=== PATIENT | female | born 1960 | race Caucasian/White ===

== ENCOUNTER 2019-09-14 17:01 | Observation (INO) | payer MEDICARE, SELFPAY ==
[2019-09-14] VITALS (10 sets, daily range): BP systolic 94–136; BP diastolic 49–89; PULSE 105–122; RESP 18–20; TEMP 36.8–37.2; O2SAT 90–99; BMI 41.2
--- NOTE | ~2019-09-14 | CT_ITS ---
EXAMINATION: CT brain wo con DATE: 09/14/2019 18:21 INDICATION: Head injury. TECHNIQUE: Computed tomography (CT) of the head was performed without intravenous contrast. The mA wa s adjusted according to patient size. Iterative reconstruction technique was employed. The dose-lengt h product was 605.33 mGy-cm. COMPARISON: None FINDINGS: There is no intracranial hemorrhage, acute infarction, or abnormal intracranial mass lesion . The ventricles are normal in size. 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 The orbits are normal . The mastoid air cells are normal. IMPRESSION: 1. Normal brain. Reviewed, dictated and finalized at location A. IMPRESSION: 1. Normal brain.
--- NOTE | ~2019-09-14 | CT_ITS ---
EXAMINATION: CT lumbar spine wo con DATE: 09/14/2019 18:21 INDICATION: Low back pain. Fall. TECHNIQUE: Computed tomography (CT) of the lumbar spine was performed without intravenous contrast. A utomated exposure control and iterative reconstruction technique were employed. The dose-length produ ct was 1436.52 mGy-cm. COMPARISON: CT abdomen and pelvis 02/12/2012 FINDINGS: There are fibroids in the uterus. There is 38 degrees levoscoliosis of thoracolumbar spine. There is 3 mm anterolisthesis of L4 on L5 and 3 mm retrolisthesis of L2 on L3. Vertebral body height s are normal. There is mildly decreased disc height at L1-L2, severely decreased disc height at L2-L3 , and mildly decreased disc height at L4-L5. The following disc levels are specifically discussed: L1-L2: The disc is bulging. There is mild bilateral facet joint osteoarthritis. There is mild bilater al neural foraminal stenosis. There is mild central canal stenosis. L2-L3: The disc is bulging. There is severe right and mild left facet joint osteoarthritis. There is moderate right and mild left neural foraminal stenosis. There is mild central canal stenosis. L3-L4: The disc is bulging. There is severe right and moderate left facet joint osteoarthritis. There is mild right and moderate left neural foraminal stenosis. There is mild central canal stenosis. L4-L5: The disc is bulging. There is severe bilateral facet joint osteoarthritis. There is moderate b ilateral neural foraminal stenosis. There is mild central canal stenosis. L5-S1: The disc is bulging. There is severe bilateral facet joint osteoarthritis. There is mild left neural foraminal stenosis. There is mild central canal stenosis. IMPRESSION: 1. No fracture. 2. Severe lumbar spondylosis. 3. Thoracolumbar levoscoliosis. Reviewed, dictated and finalized at location A.
--- NOTE | ~2019-09-14 | XR_ITS ---
EXAMINATION: XR chest 1V portable DATE: 09/14/2019 18:25 INDICATION: Weakness. Fall. TECHNIQUE: A single frontal view of the chest was obtained. COMPARISON: Chest single view 02/14/2012 FINDINGS: The chest demonstrates clear lungs without pneumonia, pleural effusion, or pneumothorax. Th e heart size is normal. There is an old healed fracture of left seventh rib. IMPRESSION: 1. No acute cardiopulmonary disease. Reviewed, dictated and finalized at location A.
--- NOTE | 2019-09-14 17:09 | ECG_ITS ---
Measurements Intervals Stuart Rate: 117 P: 45 MO: 142 QRS: 18 QRSD: 85 T: 49 QT: 330 QTc: 461 Interpretive Statements SINUS TACHYCARDIA POSSIBLE LEFT ATRIAL ENLARGEMENT ABNORMAL ECG Electronically Signed On 09-15-2019 7:16:40 CDT by Presley aPgan D.O.
--- NOTE | 2019-09-14 17:18 | ED.DIZZY ---
HPI - Dizziness General Chief Complaint: Dizziness Stated Complaint: MULTIPLE FALLS/HIT MY HEAD Time Seen by Provider: 09/14/19 17:09 Source: patient Mode of arrival: ambulatory Limitations: no limitations History of Present Illness HPI Narrative: A 59 y/o female pt presents to the ED with c/o a fall x 3 since this morning. Pt states she feels dizzy and off-balance and states that everything is wobbly , but denies the room spinning . She notes dropping a glass of water today and reports a new onset of tremors. Pt notes having chronic back pain, but reports a new onset of lower back pain and bilateral knee pain since falling. 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 Pt denies dysuria, LOC or CP. She states that her physician recently switched her pain medication for her chronic back pain. Patient states she was recently switched from oxycodone to oral morphine for her chronic back pain and feels it symptoms have been worsened since she is switch this medication also reports recent use of insulin pump MD elicited complaint: dizziness Onset (ago): hour(s) Description: off-balance and other ( everything is wobbly ) Context: change in medication (pain medication) Associated symptoms: other (lower back pain, bilateral knee pain, tremors) Related Data Home Medications Medication Instructions Recorded Confirmed dpqxobdda-biealqfz-qxb-hyalur tablet PO DAILY 09/14/19 [Move Free Ultra (boron)] cranberry 500 mg PO BID 09/14/19 fenofibrate mg 09/14/19 gabapentin 09/14/19 insulin regular hum U-500 conc 85 unit SUBCUT QPM 09/14/19 [Humulin R U-500 (Conc) Kwikpen] insulin regular hum U-500 conc 110 unit SUBCUT QAM 09/14/19 [Humulin R U-500 (Conc) Kwikpen] lutein extract-zeaxanthin ext cap PO DAILY 09/14/19 metoprolol tartrate 09/14/19 morphine 15 mg PO Q12H 09/14/19 olmesartan-hydrochlorothiazide tablet 09/14/19 tizanidine mg 09/14/19 venlafaxine mg PO 09/14/19 vitamin B complex 1 tablet PO DAILY 09/14/19 Allergies Allergy/AdvReac Type Severity Reaction Status Date / Time Penicillins Allergy Unknown Hives Verified 09/14/19 17:19 Review of Systems Review of Systems: All systems reviewed & are unremarkable except as noted in HPI and below Cardiovascular: Cardiovascular: Denies chest pain Genitourinary: Genitourinary: Denies dysuria Musculoskeletal: Musculoskeletal: Reports back pain (chronic, new onset of lower back pain) and Reports other (bilateral knee pain) Neurologic: Reports dizziness ( off-balance ), Reports frequent falls (x 3), Reports tremor(s) and Denies other (LOC) [facility] Past Medical History Medical History (Updated 09/14/19 @ 20:49 by Hermann Mcduffie DO) Arthritis Breast CA Depression Diabetes mellitus Hypertension Sleep apnea UTI (urinary tract infection) Surgical History Surgical History (Updated 09/14/19 @ 18:36 by [employer]) History of bilateral mastectomy History of section History of left knee surgery Family History Family History (Updated 03/15/12 @ 08:27 by DOCTOR UNKNOWN) Other Diabetes mellitus Family history of chronic obstructive pulmonary disease Family history of congestive heart failure Family history of malignant neoplasm of ovary Family history of pancreatic cancer Hypertension Social History Social History (Updated 09/14/19 @ 18:36 by Belle [employer]) Smoking status: Never smoker Alcohol intake: never Living arrangements: with family Exam Narrative: Exam Narrative: APPEARANCE: No acute distress, nontoxic, resting in bed HEENT: Normocephalic, atraumatic, OMM, TMs clear bilaterally EYES: PERRL, EOMI NECK: Supple, nontender, full range of motion without pain, no meningismus RESPIRATORY: No respiratory distress, clear to auscultation bilaterally with no rhonchi wheezing or rales CARDIOVASCULAR: RRR s murmur ABDOMINAL: Soft, nontender, nondistended MUSCULOSKELETAL: Moves all extremities. No clubbing
[2019-09-14 17:36] LABS: Add Urine Microscopic? YES; Appearance Urine Clear (Clear); Bacteria Urine Trace /hpf; Bilirubin Urine Negative (Negative); Blood Urine 1+ (Negative); Color Urine Straw (Yellow); Glucose Urine UA 3+ mg/dL (Negative); Ketones Urine Negative (Negative); Leukocyte Esterase Ur Negative LEU/UL (Negative); Mucus Urine Rare /lpf; Nitrate Urine Negative (Negative); Protein Urine 1+ mg/dL (Negative); RBC Urine 0-2 /hpf (0-2); Specific Grav Ur 1.013 (1.001-1.035); Squamous Epithelial Cell Urine Rare /hpf (Few); Urobilinogen Urine Negative mg/dL (<2.0); WBC Urine 0-3 /hpf
[2019-09-14 17:58] LABS: Basophils Absolute Auto 0.1 K/mm3 (0.0-0.1); Basophils Percent Auto 0.7 % (0.2-1.2); Eosinophils Absolute Auto 0.2 K/mm3 (0-0.3); Eosinophils Percent Auto 1.2 % (0-4.4); Hematocrit 37.6 % (37.0-47.0); Immature Granulocyte Absolute 0.04 K/mm3 (0.00-0.031); Immature Granulocyte Percent A 0.3 % (0-0.5); Lymphocytes Absolute Auto 2.08 K/mm3 (0.9-3.2); Lymphocytes Percent Auto 16.3 % (18.3-44.2); Mean Corpuscular HGB Conc 31.9 g/dl (32-36); Mean Corpuscular Hemoglobin 28.6 pg (26-34); Mean Corpuscular Volume 89.5 fl (80-100); Mean Platelet Volume 11.3 fl (7.4-10.4); Monocytes Percent Auto 7.5 % (2.6-8.5); Neutrophils Absolute Auto 9.5 K/mm3 (1.3-6.7); Platelet Count Result 253 k/mm3 (150-375); Red Cell Distribution Width 13.8 % (11.5-14.5); White Blood Count 12.8 K/mm3 (4.5-10.0)
[2019-09-14] MEDS: SODIUM CHLORIDE 0.9% IV 1,000 ML 999 ML IV CONT (17:59)
[2019-09-14 18:07] LABS: Prothrombin Time 13.3 Seconds (11.1-14.7)
[2019-09-14 18:08] LABS: Partial Thromboplastin Time 26.3 SECONDS (22.3-36.8)
[2019-09-14 18:10] LABS: Alanine Aminotransferase 24 U/L (4-35); Albumin Level 4.7 g/dL (3.5-5.1); Alkaline Phosphatase 83 U/L (38-126); Aspartate Amino Transferase 41 U/L (14-36); Bilirubin,Total 0.8 mg/dL (0.2-1.3); Blood Urea Nitrogen 64 mg/dL (7-17); Calcium 10.2 mg/dL (8.4-10.2); Carbon Dioxide 27 mmol/L (22-30); Chloride 98 mmol/L (98-107); Estimated CRCL calculation 17 ml/min; Estimated Glomerular Filt Rate 12; Glucose 151 mg/dL (65-105); Potassium 4.7 mmol/L (3.4-5.0); Sodium 138 mmol/L (137-145)
[2019-09-14 18:21] LABS: Troponin I 0.024 ng/mL (0.000-0.034)
[2019-09-14 18:47] LABS: Creatine Kinase 455 U/L (30-135)
--- NOTE | 2019-09-14 20:43 | PM.IMHP ---
H&P: HPI History of Present Illness Chief complaint: Acute renal failure, dizziness, gait instability, Narrative: This is a 59 year old morbidly obese Diabetic female who is known to have chronic lower back pain on chronic narcotic therapy and presented to the hospital today with a complaint of suffering 3 falls at home today. The patient had her chronic narcotic pain medication changed from Oxycodone 7.5 TID to morphine sulfate 15 mg BID. The patient is clearly confused and disoriented but she does relate that since then she has been more sleepy and tired and admits to decreased PO intake of fluids especially today. She didn't drink any fluids today at all. The patient can't tell me exact details due to her acute altered mental status but she believes she did not pass out today and fell 3 times. She also says that she slept for most of the day. She feels very dizzy. She denies any fevers, chills, neck stiffness, chest pain, palpitations, abdominal pain, blurry vision, double vision, facial droop, seizure like activity, numbness, tingling, dysuria, hematuria, diarrhea, rectal bleeding, rashes, black stools or focal weakness. The patient was evaluated in the ER today and found to be in acute renal failure. CT brain was unremarkable. No other complaints. Review of Systems Review of Systems: All systems reviewed & are unremarkable except as noted in HPI and below PMFSH Past Medical History Medical History Arthritis Breast CA Depression Diabetes mellitus Hypertension Sleep apnea UTI (urinary tract infection) Surgical History Surgical History History of bilateral mastectomy History of section History of left knee surgery Family History Family History Father Diabetes mellitus Family history of congestive heart failure Family history of chronic obstructive pulmonary disease Hypertension Grandparent Diabetes mellitus Hypertension Mother Family history of malignant neoplasm of ovary Family history of pancreatic cancer Hypertension Social History Social History Smoking status: Never smoker Alcohol intake: never Substance use: current Substance use type: does not use Living arrangements: with family Gender identity (if verbalized by the patient): Female Spiritual care concerns: No Agree to blood products: Yes Meds Home Medications and Allergies Home Medications Medication Instructions Recorded Confirmed Type cranberry 500 mg PO BID 09/14/19 09/14/19 History fenofibrate 160 mg PO DAILY 09/14/19 09/14/19 History gabapentin 1,200 mg PO QAM 09/14/19 09/14/19 History gabapentin 1,800 mg PO QPM 09/14/19 09/14/19 History insulin lispro [Humalog U-100 See Rx Instructions .ROUTE .COMPLEX 09/14/19 09/14/19 History Insulin] lutein extract-zeaxanthin ext 1 cap PO DAILY 09/14/19 09/14/19 History metoprolol tartrate 50 mg PO BID 09/14/19 09/14/19 History olmesartan-hydrochlorothiazide 1 tablet PO DAILY 09/14/19 09/14/19 History tizanidine 4 mg PO DAILY 09/14/19 09/14/19 History venlafaxine 75 mg PO DAILY 09/14/19 09/14/19 History vitamin B complex 1 tablet PO DAILY 09/14/19 09/14/19 History Allergies Allergy/AdvReac Type Severity Reaction Status Date / Time Penicillins Allergy Unknown Hives Verified 09/14/19 17:19 Vital Signs Vital Signs - 24 hr 09/14/19 17:13 09/14/19 19:36 09/14/19 19:39 Temperature 36.9 C Pulse Rate 112 H 107 H 110 H Respiratory Rate 18 Blood Pressure 114/55 L 130/69 115/73 Pulse Oximetry 96 09/14/19 20:04 Temperature Pulse Rate 106 H Respiratory Rate 20 Blood Pressure 105/73 Pulse Oximetry 99 Exam Const: General: cooperative, no acute distress, alert and awake Nutritional Appearance: well nourished Orientation/consciousness: orient
--- NOTE | 2019-09-14 20:45 | ADMGEN ---
This patient, Neha Garcia, was admitted to [facility] Surg Room 324-01. Patient/family oriented to hospital policies and general routines including ID bracelet, bed and alarms, visiting hours, pain management, procedures, bathroom and other care routines, personal items, smoking policy, room service/diet, and visiting hours. Valuables list has been completed. Information on how to activate the Rapid Response Team has been discussed. Patient/Family are encouraged to report perceived risks to care and to ask questions if they do not understand what they are told or what they should do.
[2019-09-14] MEDS: SODIUM CHLORIDE 0.9% IV 1,000 ML 125 ML IV CONT (22:06)
[2019-09-14 22:57] LABS: Glucose Point of Care 105 (65-105)
[2019-09-15] VITALS (12 sets, daily range): BP systolic 115–143; BP diastolic 57–87; PULSE 91–144; RESP 16–20; TEMP 36.4–37.2; O2SAT 91–97
[2019-09-15] MEDS: SODIUM CHLORIDE 0.9% IV 1,000 ML 125 ML IV CONT ×2 (05:51→15:52)
[2019-09-15 06:21] LABS: Basophils Absolute Auto 0.1 K/mm3 (0.0-0.1); Basophils Percent Auto 0.6 % (0.2-1.2); Eosinophils Absolute Auto 0.2 K/mm3 (0-0.3); Eosinophils Percent Auto 2.3 % (0-4.4); Hematocrit 32.6 % (37.0-47.0); Hemoglobin 10.3 g/dL (12.0-15.0); Immature Granulocyte Absolute 0.03 K/mm3 (0.00-0.031); Immature Granulocyte Percent A 0.3 % (0-0.5); Lymphocytes Absolute Auto 2.88 K/mm3 (0.9-3.2); Lymphocytes Percent Auto 28.5 % (18.3-44.2); Mean Corpuscular HGB Conc 31.6 g/dl (32-36); Mean Corpuscular Hemoglobin 28.2 pg (26-34); Mean Corpuscular Volume 89.3 fl (80-100); Mean Platelet Volume 11.5 fl (7.4-10.4); Monocytes Absolute Auto 0.9 K/mm3 (0.1-0.6); Monocytes Percent Auto 8.6 % (2.6-8.5); Neutrophils Percent Auto 59.7 % (45.5-73.1); Platelet Count Result 212 k/mm3 (150-375); Red Blood Count 3.65 M/mm3 (4.2-5.4); Red Cell Distribution Width 13.9 % (11.5-14.5); White Blood Count 10.1 K/mm3 (4.5-10.0)
[2019-09-15 06:31] LABS: Blood Urea Nitrogen 56 mg/dL (7-17); Calcium 9.7 mg/dL (8.4-10.2); Carbon Dioxide 27 mmol/L (22-30); Chloride 105 mmol/L (98-107); Estimated CRCL calculation 22 ml/min; Estimated Glomerular Filt Rate 16; Glucose 182 mg/dL (65-105); Potassium 4.4 mmol/L (3.4-5.0); Sodium 136 mmol/L (137-145)
[2019-09-15 07:20] LABS: Thyroid Stimulating Hormone Reflex 0.663 uIU/mL (0.465-4.68)
[2019-09-15] MEDS: FENOFIBRATE 160 MG TABLET PO (08:33)
[2019-09-15] MEDS: OPTI-GEN TAB 1 TABLET PO (08:33)
[2019-09-15] MEDS: METOPROLOL TARTRATE 50 MG TAB PO ×2 (08:33→18:12)
[2019-09-15] MEDS: VITAMIN B COMPLEX CAPSULE 1 CAP PO (08:33)
[2019-09-15] MEDS: VENLAFAXINE HCL XR 75 MG CAP.ER.24H PO (08:33)
[2019-09-15 08:54] LABS: Glucose Point of Care 160 (65-105)
--- NOTE | 2019-09-15 12:01 | PM.IMPN ---
Progress Note: A&P Assessment and Plan (1) Sleep apnea: Qualifiers: Sleep apnea type: unspecified type Qualified Code(s): G47.30 - Sleep apnea, unspecified Code(s): G47.30 - Sleep apnea, unspecified Status: Chronic Assessment and Plan: Continue cpap (2) Hypertension: Qualifiers: Hypertension type: unspecified Qualified Code(s): I10 - Essential (primary) hypertension Code(s): I10 - Essential (primary) hypertension Status: Chronic Assessment and Plan: Chronic and stable. monitor blood pressure. Hold ACEI secondary to acute renal failure. 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 (4) Leukocytosis: Qualifiers: Leukocytosis type: unspecified Qualified Code(s): D72.829 - Elevated white blood cell count, unspecified Code(s): D72.829 - Elevated white blood cell count, unspecified Status: Resolved Assessment and Plan: Likely secondary to trauma and falling today. (5) Falls: Qualifiers: Encounter type: initial encounter Qualified Code(s): W19.XXXA - Unspecified fall, initial encounter Code(s): W19.XXXA - Unspecified fall, initial encounter Status: Acute Assessment and Plan: Likely due to being overmedicated. Se of morphine (6) Acute encephalopathy: Code(s): G93.40 - Encephalopathy, unspecified Status: Resolved Assessment and Plan: Appears to be narcotic induced from morphine CT Brain WNL. Pt is oriented x3 today (7) Acute renal failure: Qualifiers: Acute renal failure type: unspecified Qualified Code(s): N17.9 - Acute kidney failure, unspecified Code(s): N17.9 - Acute kidney failure, unspecified Status: Acute Assessment and Plan: Likely due to poor PO intake of fluids over the past few days. continue iv hydration, hopeful discharge in 1-2 days time. creat is 2.9 continue to watch. (8) Weakness: Code(s): R53.1 - Weakness Status: Acute Assessment and Plan: Secondary to dehydration and recent fall. PT/ OT for gait retraining. Subjective Date/time seen: 09/15/19 12:01 Interval history: 59 year old morbidly obese Diabetic female who is known to have chronic lower back pain on chronic narcotic. Pt does not appear confused today. Pt may have fallen because of her morphine. and lack of hydration. Pt Creat is 2.9, CK is high. Pt to continue on iv hydration today. And receive physical theraphy prior to discharge. Review of Systems Review of Systems: All systems reviewed & are unremarkable except as noted in HPI and below Constitutional: Constitutional: Denies no additional constitutional complaints Cardiovascular: Cardiovascular: Denies no additional cardiovascular complaints Respiratory: Respiratory: Denies no additional respiratory complaints Gastrointestinal: Gastrointestinal: Denies no additional gastrointestinal complaints Musculoskeletal: Musculoskeletal: Denies no additional musculoskeletal complaints Exam Const: General: cooperative, no acute distress, alert, awake and confusion Nutritional Appearance: well nourished Orientation/consciousness: oriented to person, oriented to place and confusion Resp: Effort & Inspection: normal respiratory effort Auscultation: clear to auscultation bilaterally Cardio: Rate: tachycardic Rhythm: regular rhythm Heart sounds: no murmurs GI: Inspection: normal to inspection Auscultation: normal bowel sounds Skin: General skin exam: n
[2019-09-15 13:01] LABS: Glucose Point of Care 186 (65-105)
[2019-09-15 17:28] LABS: Glucose Point of Care 215 (65-105)
[2019-09-15] MEDS: INSULIN ASPART (*BKC) 100 UNITS/ML SUB-Q (18:10)
[2019-09-15 20:53] LABS: Glucose Point of Care 254 (65-105)
[2019-09-16] VITALS (7 sets, daily range): BP systolic 114; BP diastolic 59; PULSE 86–104; RESP 16; TEMP 36; O2SAT 92–96
[2019-09-16] MEDS: SODIUM CHLORIDE 0.9% IV 1,000 ML 125 ML IV CONT ×2 (00:54→11:44)
[2019-09-16 05:58] LABS: Hematocrit 31.2 % (37.0-47.0); Hemoglobin 9.9 g/dL (12.0-15.0); Mean Corpuscular HGB Conc 31.7 g/dl (32-36); Mean Corpuscular Hemoglobin 28.2 pg (26-34); Mean Corpuscular Volume 88.9 fl (80-100); Mean Platelet Volume 11.3 fl (7.4-10.4); Platelet Count Result 190 k/mm3 (150-375); Red Blood Count 3.51 M/mm3 (4.2-5.4); Red Cell Distribution Width 14.1 % (11.5-14.5); White Blood Count 8.8 K/mm3 (4.5-10.0)
[2019-09-16 06:38] LABS: Blood Urea Nitrogen 44 mg/dL (7-17); Calcium 9.6 mg/dL (8.4-10.2); Carbon Dioxide 26 mmol/L (22-30); Chloride 107 mmol/L (98-107); Estimated CRCL calculation 33 ml/min; Estimated Glomerular Filt Rate 27; Glucose 163 mg/dL (65-105); Potassium 4.1 mmol/L (3.4-5.0); Sodium 138 mmol/L (137-145)
[2019-09-16] MEDS: VITAMIN B COMPLEX CAPSULE 1 CAP PO (08:17)
[2019-09-16] MEDS: FENOFIBRATE 160 MG TABLET PO (08:17)
[2019-09-16] MEDS: METOPROLOL TARTRATE 50 MG TAB PO (08:17)
[2019-09-16] MEDS: OPTI-GEN TAB 1 TABLET PO (08:17)
[2019-09-16] MEDS: VENLAFAXINE HCL XR 75 MG CAP.ER.24H PO (08:17)
[2019-09-16 08:46] LABS: Glucose Point of Care 158 (65-105)
[2019-09-16 09:14] LABS: Blood Urea Nitrogen 44 mg/dL (7-17); Calcium 9.8 mg/dL (8.4-10.2); Carbon Dioxide 24 mmol/L (22-30); Chloride 109 mmol/L (98-107); Estimated CRCL calculation 37 ml/min; Estimated Glomerular Filt Rate 31; Glucose 165 mg/dL (65-105); Potassium 4.3 mmol/L (3.4-5.0); Sodium 139 mmol/L (137-145)
[2019-09-16 12:13] LABS: Glucose Point of Care 187 (65-105)
--- NOTE | 2019-09-16 13:16 | PM.DS ---
DS: Diagnosis Admitting Diagnosis Admitting Diagnosis: Encephalopathy, unspecified Discharge Diagnosis (1) Acute encephalopathy: Code(s): G93.40 - Encephalopathy, unspecified Status: Resolved Assessment and Plan: Patient was confused on admission. Brain CT okay. Purdum to be narcotic induced from morphine. Symptoms resolved and patient is back to baseline. (2) Acute renal failure: Qualifiers: Acute renal failure type: unspecified Qualified Code(s): N17.9 - Acute kidney failure, unspecified Code(s): N17.9 - Acute kidney failure, unspecified Status: Acute Assessment and Plan: Cr 3.8 on admission. Likely due to poor PO intake over the past few days. Started on IV hydration and Cr has trended down to 1.7. (3) Falls: Qualifiers: Encounter type: initial encounter Qualified Code(s): W19.XXXA - Unspecified fall, initial encounter Code(s): W19.XXXA - Unspecified fall, initial encounter Status: Acute Assessment and Plan: Likely due to being overmedicated and from the RONIT. Improved. Ambulating to the BR without difficulty now. (4) Weakness: Code(s): R53.1 - Weakness Status: Acute Assessment and Plan: Secondary to dehydration and recent fall. PT/OT worked with patient for gait retraining. Patient does have heart murmur noted exam but has had a recent echocardiogram 1-2 weeks ago at [facility]. Results unknown. Patient was encouraged to follow up with her doctor to discuss results. (5) Sleep apnea: Qualifiers: Sleep apnea type: unspecified type Qualified Code(s): G47.30 - Sleep apnea, unspecified Code(s): G47.30 - Sleep apnea, unspecified Status: Chronic Assessment and Plan: Stable. Patient compliant with CPAP here. (6) Hypertension: Qualifiers: Hypertension type: unspecified Qualified Code(s): I10 - Essential (primary) hypertension Code(s): I10 - Essential (primary) hypertension Status: Chronic Assessment and Plan: BP monitored. BP remained well controlled. JACKIE Inhibitor placed on hold due to acute renal failure. Continue to hold for now. (7) Leukocytosis: Qualifiers: Leukocytosis type: unspecified Qualified Code(s): D72.829 - Elevated white blood cell count, unspecified Code(s): D72.829 - Elevated white blood cell count, unspecified Status: Resolved Assessment and Plan: WBC 12.8 on admission. UA was negative for evidence of infection. CXR no acute cardiopulmonary disease. Likely secondary to trauma and falling. Repeat WBC normalized. 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 Glucose elevated at times overall remained reasonably well controlled. Accuchecks covered with SS Insulin. Hypoglycemic protocol available as well. DS: Summary Hospital Course Reason for hospitalization: 59yo female here for confusion and RONIT. Please see H&P for details. Hospital Course: As above Time Spent with Patient Time attestation: Total time spent providing and/or coordinating discharge services:34 minutes Time spent: Greater than 30 minutes Exam Narrative: Exam Narrative: AF 114/59 Gen - NARD lying semi-recumbent in bed with CPAP in place Chest - CTA bilaterally, nml RR CV - RRR S1/S2 with 2/6 systolic murmur in the USB; telemetry showing no significant dysrhythmias Abd - Soft, NT/ND, Positive BS Ext - No pedal edema Neuro - Alert and oriented. Nonfocal exam. Psych - Nml
== END 2019-09-16 14:40 | disposition home health service (06) ==
LOC: ANHED 17:41 → ANH3MEDSUR 19:54
PROVIDERS: Emergency Medicine; Family Medicine; Admitting Provider Family Medicine; Emergency Provider Emergency Medicine; PCP Internal Medicine; Visit Provider Internal Medicine
DX: N17.9 Acute kidney failure, unspecified (principal); G93.40 Encephalopathy, unspecified; W19.XXXA Unspecified fall, initial encounter; R53.1 Weakness; E86.0 Dehydration; G47.30 Sleep apnea, unspecified; I10 Essential (primary) hypertension; D72.829 Elevated white blood cell count, unspecified; E11.9 Type 2 diabetes mellitus without complications; E66.01 Morbid (severe) obesity due to excess calories; Z68.41 Body mass index [BMI] 40.0-44.9, adult; G89.29 Other chronic pain; M54.5 Low back pain; M19.90 Unspecified osteoarthritis, unspecified site; Z79.4 Long term (current) use of insulin; Z79.891 Long term (current) use of opiate analgesic; Z85.3 Personal history of malignant neoplasm of breast
CPT/HCPCS: 36415; 51701; 70450; 71045; 72131; 80048; 80053; 81001; 82550; 84443; 84484; 85025; 85027; 85610; 85730; 93005; 96360; 96361; 97110; 97116; 97161; 99285; A9270; G0378; J1815; J7030

== ENCOUNTER → 2023-02-14 07:41 | Outpatient (CLI) | payer MEDICARE, SELFPAY ==
--- NOTE | ~2023-02-14 | MR_ITS ---
MRI of the lumbar spine Clinical History: Radiculopathy Technique: Axial T2-weighted images, and sagittal T1-weighted, T2-weighted, and T2 fat-sat images wer e acquired. COMPARISON: 04/25/2016 Findings: There is levoscoliosis of the lumbar spine, approximately 45 degrees. There is probable min imal grade 1 retrolisthesis of L2 over L3. There is minimal grade 1 anterolisthesis of L4 over L5. Th ere is intraosseous hemangioma at the L2 vertebral body with additional reactive marrow signal change s about the L2-L3 disc space due to underlying degenerative disc disease. At L1-L2, there is advanced degenerative disc narrowing with minimal facet arthropathy. No significan t disc bulge or herniation evident. There is mild right neural foraminal narrowing. Left neural jenny en preserved. No makayla central canal stenosis. At L2-L3, there is severe degenerative disc narrowing. There is mild disc bulge with advanced facet a rthropathy. There is minimal central canal stenosis. There is severe right neural foraminal compromis e and moderate to severe left neural foraminal narrowing. At L3-L4, there is diffuse disc bulge with severe facet arthropathy, and mild to moderate central can al stenosis. There is severe left neural foraminal narrowing, and moderate to severe right neural for aminal narrowing. At L4-L5, there is disc bulge with severe facet arthropathy. No makayla central canal stenosis. There i s severe left neural foraminal narrowing, and mild right neural foraminal narrowing. At L5-S1, there is minimal disc bulge with moderate to advanced facet arthropathy. No central canal s tenosis. There is moderate left neural foraminal narrowing. Right neural foramen preserved. Paravertebral soft tissues are unremarkable. Impression: Severe degenerative spondylosis, as detailed above, with underlying 45 degrees levoscoliosis. Minimal grade 1 retrolisthesis of L2 over L3. Minimal grade 1 anterolisthesis of L4 over L5. Reviewed, dictated and finalized at [facility]. Impression: Severe degenerative spondylosis, as detailed above, with underlying 45 degrees levoscoliosis. Minimal grade 1 retrolisthesis of L2 over L3. Minimal grade 1 anterolisthesis of L4 over L5.
== END ==
PROVIDERS: PCP Internal Medicine; Visit Provider Nurse Practitioner Family
DX: M47.26 Other spondylosis with radiculopathy, lumbar region (principal)
CPT/HCPCS: 72148

== ENCOUNTER → 2023-04-11 14:50 | Outpatient (CLI) | payer MEDICARE, SELFPAY ==
--- NOTE | ~2023-04-11 | MR_ITS ---
EXAMINATION: MR thoracic spine wo con DATE: 04/11/2023 15:39 INDICATION: Left-sided thoracic back pain. TECHNIQUE: Magnetic resonance imaging (MRI) of the thoracic spine was performed without intravenous c ontrast. Sagittal localizer T1-weighted FSE of the cervical spine was obtained. Thoracic spine sequen juju included sagittal T2-weighted FSE, sagittal T1-weighted FSE, sagittal T2-weighted FS FSE, and axi al T2-weighted FSE. COMPARISON: Lumbar spine MRI 02/14/2023 FINDINGS: There is 11 degrees dextroscoliosis of thoracic spine and 23 degrees levoscoliosis of thora columbar spine. Vertebral body heights are normal and thoracic spine. There is mildly decreased disc height from T3-T4 through T12-L1. At T4-T5, there is a left central extrusion with mild central canal stenosis. At T11-T12, the disc is bulging with mild central canal stenosis. At T12-L1, the disc is b ulging with mild central canal stenosis. There is multilevel facet joint osteoarthritis, severe at a few levels. There is mild neural foraminal stenosis at a few levels bilaterally. The spinal cord sign al intensity is normal. IMPRESSION: 1. Mild thoracic spondylosis. 2. Scoliosis. Reviewed, dictated and finalized at location E.
== END ==
PROVIDERS: PCP Internal Medicine; Visit Provider Nurse Practitioner Family
DX: M43.04 Spondylolysis, thoracic region (principal); M41.9 Scoliosis, unspecified
CPT/HCPCS: 72146

== ENCOUNTER 2023-09-11 11:24 | Outpatient (CLI) | payer MEDICARE, SELFPAY ==
[2023-09-11 11:51] LABS: Basophils Absolute Auto 0.1 K/mm3 (0.0-0.1); Basophils Percent Auto 0.7 % (0.2-1.2); Eosinophils Absolute Auto 0.3 K/mm3 (0-0.3); Eosinophils Percent Auto 2.3 % (0-4.4); Hematocrit 46.5 % (37.0-47.0); Hemoglobin 15.3 g/dL (12.0-15.0); Immature Granulocyte Absolute 0.03 K/mm3 (0.00-0.031); Immature Granulocyte Percent A 0.3 % (0-0.5); Lymphocytes Absolute Auto 2.93 K/mm3 (0.9-3.2); Lymphocytes Percent Auto 26.4 % (18.3-44.2); Mean Corpuscular HGB Conc 32.9 g/dl (32-36); Mean Corpuscular Hemoglobin 29.3 pg (26-34); Mean Corpuscular Volume 89.1 fl (80-100); Mean Platelet Volume 10.1 fl (7.4-10.4); Monocytes Absolute Auto 0.9 K/mm3 (0.1-0.6); Monocytes Percent Auto 7.7 % (2.6-8.5); Neutrophils Percent Auto 62.6 % (45.5-73.1); Platelet Count Result 241 k/mm3 (150-375); Red Blood Count 5.22 M/mm3 (4.2-5.4); Red Cell Distribution Width 13.1 % (11.5-14.5); White Blood Count 11.1 K/mm3 (4.5-10.0)
[2023-09-11 16:51] LABS: Transferrin 201 mg/dL (206-381)
[2023-09-11 18:01] LABS: Iron 78 ug/dL (37-170)
[2023-09-11 18:16] LABS: Percent Iron Saturation 30 % (20-50)
== END 2023-09-11 11:25 | disposition home or self-care (01) ==
LOC: ANHLAB 11:27
PROVIDERS: Nurse Practitioner Family; PCP Internal Medicine; Visit Provider Internal Medicine Hematology & Oncology
DX: E83.110 Hereditary hemochromatosis (principal)
CPT/HCPCS: 36415; 81256; 82728; 83540; 83550; 84466; 85025

== ENCOUNTER 2024-07-23 11:04 | Outpatient (CLI) | payer MEDICARE, SELFPAY ==
[2024-07-23 11:25] LABS: Basophils Absolute Auto 0.1 K/mm3 (0.0-0.1); Basophils Percent Auto 1.3 % (0.2-1.2); Eosinophils Absolute Auto 0.2 K/mm3 (0-0.3); Eosinophils Percent Auto 2.4 % (0-4.4); Hematocrit 44.7 % (37.0-47.0); Hemoglobin 14.4 g/dL (12.0-15.0); Immature Granulocyte Absolute 0.01 K/mm3 (0.00-0.031); Immature Granulocyte Percent A 0.1 % (0-0.5); Lymphocytes Absolute Auto 2.38 K/mm3 (0.9-3.2); Lymphocytes Percent Auto 32.1 % (18.3-44.2); Mean Corpuscular HGB Conc 32.2 g/dl (32-36); Mean Corpuscular Hemoglobin 27.2 pg (26-34); Mean Corpuscular Volume 84.5 fl (80-100); Mean Platelet Volume 10.1 fl (7.4-10.4); Monocytes Absolute Auto 0.5 K/mm3 (0.1-0.6); Monocytes Percent Auto 6.7 % (2.6-8.5); Neutrophils Absolute Auto 4.3 K/mm3 (1.3-6.7); Neutrophils Percent Auto 57.4 % (45.5-73.1); Platelet Count Result 207 k/mm3 (150-375); Red Blood Count 5.29 M/mm3 (4.2-5.4); Red Cell Distribution Width 13.3 % (11.5-14.5); White Blood Count 7.4 K/mm3 (4.5-10.0)
[2024-07-23 11:27] LABS: Blood Urea Nitrogen 15 mg/dL (8-26); Carbon Dioxide 30 mmol/L (22-30); Chloride 101 mmol/L (98-109); Estimated Glomerular Filt Rate 55; Glucose 103 mg/dL (70-105); Potassium 4.2 mmol/L (3.5-4.9); Sodium 139 mmol/L (138-146)
[2024-07-23 12:33] LABS: Alanine Aminotransferase 30 U/L (6-35); Alkaline Phosphatase 93 U/L (38-126); Anion Gap 8 mmol/L (4-12); Aspartate Amino Transferase 49 U/L (14-36); Bilirubin,Total 1.3 mg/dL (0.2-1.3); Blood Urea Nitrogen 16 mg/dL (7-17); Calcium 10.3 mg/dL (8.4-10.2); Carbon Dioxide 29 mmol/L (22-30); Chloride 101 mmol/L (98-107); Estimated Glomerular Filt Rate > 60; Glucose 103 mg/dL (65-110); Potassium 4.3 mmol/L (3.4-5.0); Sodium 138 mmol/L (137-145)
--- OUTSIDE RECORDS SUMMARY | 2024-07-23 12:43 | XMS_ITS | CONTINUITY OF CARE DOCUMENT ---
Author Name natemihaela natemihaela Address Unknown Organization [facility] Address [address] [address] [place] [address] Phone [phone] Care Team Providers Care Crawler Dragline Operator Name Role Phone Titi AVILA, Daisy Unavailable CALLIE PEARSON MD Unavailable [phone] CALLIE PEARSON MD Unavailable PROBLEMS Condition Status Date Provider Notes Murmur, cardiac completed - Daisy Farley MD Family History of Hypertension: completed - Daisy Farley MD HTN--echo normal LVEF, mild TR, 08/2019 active Daisy Farley MD Hyperlipidemia active Daisy Farley MD Diabetes mellitus active Daisy Farley MD ADNIEL on CPAP active Daisy Farley MD Breast cancer s/p b/l mastectomy active Gabriel Farley MD Preoperative cardiovascular examination for shoulder surgery--normal stress test 09/2020 completed - Burno Alcantara ENCOUNTERS Date Type Provider Location Encounter Diag nosis - In-person encounter Office Visit Daisy Farley MD [place] [facility] Preoperative cardiovascular examination for shoulder surgery--normal stress test 09/2020 - In-person encounter Office Visit Daisy Farley MD [place] [facility] - In-person encounter Office Visit Daisy Farley MD [facility] Office HTN--echo normal LVE F, mild TR, 08/2019 - In-person encounter Office Visit Daisy Farley MD [place] [facility] Murmur, cardiacFamily History of Hypertension:HTN--echo normal LVEF, mild TR, 08/2019HyperlipidemiaDiabete s mellitusOSA on CPAPBreast cancer s/p b/l mastectomyPreoperative cardiovascular examination for shoulder surgery--normal stress test 09/2020 VITAL SIGNS Date Observation Value Provider Body Mass Index (Ratio) 37.24 kg/m2 Anthony Farley MD blood pressure, diastolic -1 mm[Hg] Christel nkLog blood pressure, systolic 105 mm[Hg] Ju [facility] pulse rate 79 /min [facility] blood pressure, diastolic 65 mm[Hg] Ja [facility] blood pressure, systolic 105 mm[Hg] [facility] blood pressure, cuff size regular [facility] oxygen saturation, oximetry 98 % [facility] respiratory rate E&M 16 /min Declan weight E&M 217 [lb_av] [facility] height E&M 64 [in_i] [facility] Body Mass Index (Ratio) 37.93 kg/m2 Anthony Farley MD blood pressure, cuff size large Mi pat Norman blood pressure, diastolic 62 mm[Hg] Mi pat Norman blood pressure, systolic 124 mm[Hg] Rei helle Norman oxygen saturation, oximetry 98 % Zenaidalmis Rankin respiratory rate E&M 16 /min Teresa Rankin pulse rate 81 /min Zena carter weight E&M 221 [lb_av] Zena carter height E&M 64 [in_i] Zena carter Body Mass Index (Ratio) 41.19 kg/m2 Anthony Farley MD blood pressure, cuff size regular Adria De La Rosa blood pressure, diastolic 80 mm[Hg] Adria De La Rosa blood pressure, systolic 138 mm[Hg] Betty De La Rosa pulse rate 87 /min Sherrie De La Rosa oxygen saturation, oximetry 96 % Sherrie De La Rosa respiratory rate E&M 18 /min Sherrietai De La Rosa weight E&M 240 [lb_av] Sherrietai De La Rosa height E&M 64 [in_i] Sherrietai De La Rosa Body Mass Index (Ratio) 39.48 kg/m2 Anthony Farley MD blood pressure, diastolic 70 mm[Hg] Rh riaz Saunders blood pressure, systolic 140 mm[Hg] Rho celi Saunders oxygen saturation, oximetry 98 % Cristina Saunders respiratory rate E&M 18 /min Cristina Saunders pulse rate 89 /min Cristina Saunders blood pressure, resting Yes Santos Colon height E&M 64 [in_i] Cristina Saunders weight E&M 230 [lb_av] Cristina Saunders blood pressure, cuff size regular riaz Saunders ALLERGIES Allergy Name Onset Date Reaction Criticality Status CLINDAMYCIN Gastrointestinal High Criticality a ctive PENICILLIN High Criticality active HISTORY OF MEDICATION USE Medication Status Instructions Dates Provider Indications Com norma Sharma 7.5 mg/0.5 mL pen injector active Bruno Alcantara acetaminophen 500 mg tablet active TAKE 2 TABLETS BY MOUTH EVERY 6 HOURS NEEDED FOR PAIN Sherrie De La Rosa Omnipod Dash 5 Pack Pod cartridge active CHANGE AND USE 1 POD OUT EVERY 2 DAYS FOR INSULIN PUMP THERAPY Sherrie Starkby venlafaxine 37.5 mg capsule,extended release 24hr active TAKE 1 CAPSULE BY MOUTH EVERY DAY Sherrie Starkby ergocalciferol (vitamin D2) 1,250 mcg (50,000 unit) capsule active Sherrie De La Rosa calcitriol 0.25 mcg capsule active Sherrie De La Rosa naltrexone 50 mg tablet completed tablet by mouth - Cristina Saunders ergocalciferol (vitamin D2) 1,250 mcg (50,000 unit) capsule completed capsule by mouth - Cristina Saunders #6, 90 days supply, Prescribed by MARILYN FARLEY, Filled 07/27/2020 losartan 25 mg tablet active tablet by mouth Cristina Saunders #90, 90 days supply, Prescribed by MARILYN FARLEY, Filled 07/04/2020 rosuvastatin 20 mg tablet active 5 days a week Bruno Alcantara #26, 90 days supply, Prescribed by ROLANDA WATTERS, Filled 07/25/2020 insulin lispro 100 unit/mL solution active Cristina Saunders #40, 40 days supply, Prescribed by ROLANDA WATTERS, Filled 09/03/2020 gabapentin 600 mg tablet active twice a day Bruno Alcantara #150, 30 days supply, Prescribed by TAZ CHEN, Filled 09/03/2020 Ozempic 0.25 mg or 0.5 mg(2 mg/1.5 mL) pen injector completed subcutaneously - Bruno Alcantara #1.5, 30 days supply, Prescribed by ROLANDA WATTERS, Filled 09/07/2020 metoprolol tartrate 50 mg tablet active tablet by mouth Cristina Saunders #180, 90 days supply, Prescribed by CALLIE PEARSON, Filled 09/14/2020 SOCIAL HISTORY Date Observation Value Provider smoking status Never smoker Bruno Alcantara social history E&M S moking History: P atjania has never smoked. Bruno Alcantara smoking status Never smoker Zena Baker and social history reviewed E&M revi ewed - no changes required Bruno Alcantara social history reviewed E&M revi ewed - no changes required Bruno Alcantara social history reviewed E&M revi ewed - no changes required Daisy Farley MD smoking status Never smoker Cristina Saunders FAMILY HISTORY Family Member Condition Mother Family History of Hy pertension: INSURANCE PROVIDERS Payer name Policy type / Coverage type Story red republican ID AARP MEDICARE ADVANTAGE HMO-POS HMO [id number] ADVANCE DIRECTIVES Name Date DISCUSSED - NO DECISION MADE TREATMENT PLAN Date Name Performer [id number],S, Bruno Meyers i [id number],SBruno i [id number],SBruno i [id number],SBruno i [id number],SDaisy MD [id number],SDaisy MD [id number],SDaisy MD [id number],SDaisy MD Cardiology: H er updated medication list for this problem includes: Mounjaro 7.5 Mg/0.5 Ml Pen Injector (Tirzepatide) Insulin Lispro 100 Unit/ml Solution (Insulin lispro) Losartan 25 Mg Tablet (Losartan) ..... Tablet by mouth Bruno Alcantara Cardiology: H er updated medication list for this problem includes: Rosuvastatin 20 Mg Tablet (Rosuvastatin) ..... 5 days a week Bruno Alcantara Cardiology Bruno Alcantara Cardiology Bruno Alcantara Cardiology: B P today: 105/65 P rior BP: 124/62 (12/27/2021) Her updated medication list for this problem includes: Losartan 25 Mg Tablet (Losartan) ..... Tablet by mouth Metoprolol Tartrate 50 Mg Tablet (Metoprolol tartrate) ..... Tablet by mouth Bruno Alcantara Cardiology Bruno Alcantara Cardiology Bruno Alcantara Cardiology Bruno Alcantara Cardiology Bruno Alcantara Cardiology Daisy Farley MD Cardiology Daisy Farley MD Cardiology Daisy Farley MD Cardiology Daisy Farley MD Date Name Stress Regadenoson Complete Echo HISTORY OF PROCEDURES Procedure Date Procedure Name Provider Procedure Notes S tatus EKG Daisy Farley MD completed EKG Daisy Farley MD completed
--- OUTSIDE RECORDS SUMMARY | 2024-07-23 12:43 | XMS_ITS | Clinical Summary ---
Author Organization [facility] Kaycee clement [facility] Address [address] [place] [address] Care Team Providers Care Roadmaster Name Role Phone Jelani Reis MD Primary Care Provider Allergies Active Allergy Reactions Criticality Noted Date Comments Clindamycin Other (See Comments),Unknown Low 04/23/2023 Penicillins Hives,Other (See Comments),Unknown High 09/16/2020 Reaction: Reaction: Hives, ??, Medications calcitRIOL (ROCALTROL) 0.25 mcg capsule Take 0.25 mcg by mouth daily. Active calcium-vitamin D3 (CALTRATE 600+D) 600 mg-5 mcg (200 unit) Tablet Take 1 Tablet by mouth 2 times daily. Active cetirizine (ZyrTEC) 10 mg tablet Take 10 mg by mouth. Active empagliflozin (Jardiance) 25 mg tablet Take 25 mg by mouth. Active losartan (COZAAR) 25 mg tablet Take 25 mg by mouth. Active rosuvastatin (CRESTOR) 20 mg tablet Take 20 mg by mouth. Active tirzepatide (Mounjaro) 7.5 mg/0.5 mL Pen Injector Inject 7.5 mg every week by subcutaneous route at dinner for 90 days. Active venlafaxine (EFFEXOR XR) 37.5 mg Extended Release 24 hour capsule venlafaxine 37.5 mg capsule,extended release 24hr Active metoprolol succinate (TOPROL XL) 50 mg Extended Release 24 hour tablet Take 50 mg by mouth 2 times daily. Active gabapentin (NEURONTIN) 600 mg tablet Take 600 mg by mouth 2 times daily. Active insulin lispro (HumaLOG U-100 Insulin) 100 unit/mL vial ADMINISTER 100 UNITS VIA UNSULIN PUMP DAILY 3 Active insulin pump cart,cont inf,BT (Omnipod Dash Pods, Gen 4,) Cartridge Omnipod Dash 5 Pack Pod cartridge Active Active Problems No known active problems Encounters Date Type Department Care Team Description 07/23/2024 11:45 AM TRAINING PROJECT MANAGER Office Visit [facility] Oncology and Hematology [facility] [address] [place] [address] Taran Valenzuela MD Hereditary hemochromatosis (Primary Dx) 07/23/2024 Orders Only [facility] Oncology and [facility] [address] [place] [address] Taran Valenzuela MD 07/10/2024 External Device Data STL ABSTRACTION Provider, Abstract from Last 3 Months Family History Medical History Relation Name Comments No Known Problems Brother 1 No Known Problems Brother 2 No Known Problems Child 1 No Known Problems Child 2 Diabetes Father Heart Disease Father Ovarian Cancer Mother Pancreatic Cancer Mother No Known Problems Sister 1 No Known Problems Sister 2 Relation Name Status Comments Brother 1 Alive Brother 2 Child 1 Alive Child 2 Alive Father Mother Sister 1 Alive Sister 2 Alive Social History Tobacco Use Types Packs/Day Years Used Date Smoking Tobacco: Never Smokeless Tobacco: Never Tobacco Cessation:Counseling Given: Not Answered Alcohol Use Standard Drinks/Week Comments Yes 0 (1 standard drink = 0.6 oz pur e alcohol) Socially Comments Unknown Sex and Gender Information Value Date Recorded Sex Assigned at Not on file Legal Sex Female 10:30 PM CDT Gender Identity Not on file Sexual Orientation Not on file Last Filed Vital Signs Vital Sign Reading Time Taken Comments Blood Pressure 112/68 07/23/2024 11:28 AM TRAINING PROJECT MANAGER Pulse 84 07/23/2024 11:28 AM TRAINING PROJECT MANAGER Temperature 36.4 ??C (97.5 ??F) 07/23/2024 11:[address] Respiratory Rate 16 07/23/2024 11:28 AM TRAINING PROJECT MANAGER Oxygen Saturation 93% 07/23/2024 11:28 AM TRAINING PROJECT MANAGER Inhaled Oxygen Concentration - - Weight 94.8 kg (209 lb) 07/23/2024 11:28 AM TRAINING PROJECT MANAGER Height 157.5 cm (5' 2 ) 09/11/2023 10:43 AM CDT Body Mass Index 38.23 09/11/2023 10:43 AM CDT Plan of Treatment Upcoming Encounters Date Type Department Care Team (Late st Contact Info) Description 01/21/2025 11:00 AM CDT Office Visit [facility] Oncology and Hematology - Stef [address] [facility] [address] [place] [address] Taran Valenzuela MD [address] [facility] [address] [place] [address] Health Maintenance Due Date Last Done Comments DIABETES ANNUAL FOOT EXAM 1976 DIABETES ANNUAL RETINAL EXAM 1976 DIABETES MICROALBUMIN ANNUAL SCREEN 1976 LDL CHOLESTEROL ANNUAL 1976 BREAST CANCER SCREENING 1998 COLORECTAL SCREENING 2003 Colorectal Cancer Screening 2003 FIT-DNA Q 3 years 2003 FIT/FOBT Q 1 year 2003 Flex Sig/CT Colonography Q 5 years 2003 ZOSTER VACCINE (1 of 2) 2008 RSV VACCINE (60+ or ) (1 - Risk 60-74 years 1-dose series) 2018 DIABETES HBA1C Q 6 MONTHS 03/25/2019 09/23/2018 PNEUMOCOCCAL VACCINE 65+ YEA RS (2 of 2 - PCV) 12/07/2023 12/06/2022 INFLUENZA VACCINE (#1) 2024 3, 05/05/2021, 04/30/2019, Additional history exists COVID-19 Vaccine (4 - 2023-2 5 season) 2024 05/05/2021, 09/10/2020, 08/13/2020 [place] Preventative Visit/Annual Wellness Visit 06/18/2024 DTAP/TDAP/TD VACCINES (2 - T d or Tdap) 05/30/2028 05/30/2018 OSTEOPOROSIS SCREENING Completed 10/06/2022 Procedures Procedure Name Priority Date/Time Associated Diagnosis Comments CBC WITH DIFFERENTIAL Routine 07/23/2024 11:41 AM TRAINING PROJECT MANAGER IRON, TIBC, AND PERCENT SATURATION Routine 07/18/2024 9:56 AM TRAINING PROJECT MANAGER Hereditary hemochromatosis FERRITIN Routine 07/18/2024 9:56 AM TRAINING PROJECT MANAGER Hereditary hemochromatosis from Last 3 Months Results * CBC WITH DIFFERENTIAL (07/23/2024 11:41 AM TRAINING PROJECT MANAGER) Blood us Taran Valenzuela MD HEMATOLOGY ORDERABLES Final Res ult * IRON, TIBC, AND PERCENT SATURATION (07/18/2024 9:56 AM TRAINING PROJECT MANAGER) IRON 75 45 - 160 mcg/dL [facility] TIBC 282 250 - 450 mcg/dL (calc) [facility] IRON % SATURATION 27 16 - 45 % (calc) [facility] Comment: Test Performed at: [facility] [address] [place], [place] ??[phone] Charlene Walls MD Blood 07/18/2024 9:56 AM TRAINING PROJECT MANAGER 07/18/2024 9:57 AM TRAINING PROJECT MANAGER us Taran Valenzuela MD CHEMISTRY ORDERABLES Final Resu lt Performing Organization Address City/[facility] Co de Phone Number [facility] [phone] [facility] [address] [place] [address] * FERRITIN (07/18/2024 9:56 AM TRAINING PROJECT MANAGER) FERRITIN 220 16 - 288 ng/mL [facility] Comment: Test Performed at: [facility] [address] [place], [place] ??[phone] Charlene Walls MD Blood 07/18/2024 9:56 AM TRAINING PROJECT MANAGER 07/18/2024 9:57 AM TRAINING PROJECT MANAGER us Taran Valenzuela MD CHEMISTRY ORDERABLES Final Resu lt [facility] [phone] [facility] [address] [address] [phone] from Last 3 Months Insurance [facility] [id number] Care Teams Roadmaster Relationship Specialty Start Date End Date Jelani Reis MD PCP - General Internal Medicine 09/11/23
--- OUTSIDE RECORDS SUMMARY | 2024-07-23 12:43 | XMS_ITS | Encounter Summary ---
Author Organization [facility] Address [address] [place] [address] Phone Care Team Providers Care Hobbies And Crafts Sales Representative Name Role Phone Unavailable Primary Care Provider Unavailabl e Encounter Details Date Type Department Care Team (Late st Contact Info) Description 07/18/2021 Documentation Only [employer], [facility] [address] [facility] [address] [place] [address] Scan, Generic Provider Social History Tobacco Use Types Packs/Day Years Used Date Smoking Tobacco: Never Assessed Comments Unknown Sex and Gender Information Value Date Recorded Sex Assigned at Not on file Legal Sex Female 2:51 PM EDT Gender Identity Not on file Sexual Orientation Not on file documented as of this encounter Plan of Treatment Not on file documented as of this encounter Visit Diagnoses Not on filedocumented in this encounter
--- OUTSIDE RECORDS SUMMARY | 2024-07-23 12:43 | XMS_ITS | Clinical Summary ---
Author Organization [facility] Address [address] [address] Care Team Providers Care Greenhouse Worker Name Role Phone Unavailable Primary Care Provider Unavailabl e Social History Tobacco Use Types Packs/Day Years Used Date Smoking Tobacco: Never Assessed Comments Unknown Sex and Gender Information Value Date Recorded Sex Assigned at Not on file Legal Sex Female 2:51 PM EDT Gender Identity Not on file Sexual Orientation Not on file Plan of Treatment Health Maintenance Due Date Last Done Comments Breast Cancer Screening 1960 Colorectal Cancer Screening: Annual FOBT 2007 Colorectal Cancer Screening: Colonoscopy 2007 Colorectal Cancer Screening: Sigmoidoscopy 2007 Pneumococcal Vaccine: 65+ Ye ars (1 of 1 - PCV) 2023 Influenza Vaccine (#1) 2024 Hepatitis B Vaccine Aged Out No longe r eligible based on patient's age to complete this topic
--- OUTSIDE RECORDS SUMMARY | 2024-07-23 12:43 | XMS_ITS | Encounter Summary ---
Author Organization [facility] Address [address] [place] [address] Care Team Providers Care Pharmacists Name Role Phone Jelani Reis MD Primary Care Provider Reason for Visit * Reason Comments Follow Up Encounter Details Date Type Department Care Team (Late st Contact Info) Description 07/23/2024 11:45 AM AUDITING MANAGER Office Visit [facility] Oncology and Hematology - Stef [address] [place] [address] [facility] [address] [place] [address] Taran Valenzuela MD [address] [facility] [address] [place] [address] Hereditary hemochromatosis (Primary Dx) Social History Tobacco Use Types Packs/Day Years [...] on file documented as of this encounter Last Filed Vital Signs Vital Sign Reading Time Taken Comments Blood Pressure 112/68 07/23/2024 11:28 AM AUDITING MANAGER Pulse 84 07/23/2024 11:28 AM AUDITING MANAGER Temperature 36.4 ??C (97.5 ??F) 07/23/2024 11:[address] Respiratory Rate 16 07/23/2024 11:28 AM AUDITING MANAGER Oxygen Saturation 93% 07/23/2024 11:28 AM AUDITING MANAGER Inhaled Oxygen Concentration - - Weight 94.8 kg (209 lb) 07/23/2024 11:28 AM AUDITING MANAGER Height - - Body Mass Index 38.23 09/11/2023 10:43 AM CDT documented in this encounter Progress Notes * Taran Valenzuela MD - 07/23/2024 11:40 AM CST HEMATOLOGY / ONCOLOGY PROGRESS NOTE Patient Identification: Name: Neha Garcia Age: 64 y.o. Sex: female : 1960 DIAGNOSIS Hereditary hemochromatosis with H63D homozygous state diagnosed September 11, 2023. CURRENT TREATMENT Periodic phlebotomy. TREATMENT HISTORY Patient had phlebotomy done on October 12, 2023 SUBJECTIVE Patient came to the office for follow-up visit. She denies any abdominal pain and chest pain. She has lost 3 pound weight. Denies any other complaints. Review of system Constitutional: Patient did not mention fevers, sweats, denies any tiredness and fatigue, 3 pound weight loss HEENT: Patient did not mention sinus congestion, hearing or vision problems Respiratory: Patient did not mention cough, dyspnea, wheeze Cardiovascular: Patient did not mention chest pain, exertional chest pressure/discomfort, nausea, syncope, shortness of breath GI: Patient did not mention constipation, diarrhea, dsyphagia, reflux symptoms, vomiting, melena : Patient did not mention dysuria, frequency, incontinence, urgency Integumentary system: no lymphadenopathy, sweats, flushing Musculoskeletal: Patient not mention: myalgia, arthralgia Neurological: Patient did not mention blurry or disturbed vision, numbness/weakness, dizziness Skin: No lumps, bumps or rashes. 12 point review of system was reviewed Objective: Vital signs in last 24 hours: As per nursing note Exam: General appearance: alert, cooperative, no distress, appears stated age Head: normocephalic, without obvious abnormality, atraumatic Eyes: conjunctivae/corneas clear, EOM's intact Ears: normal external ear canals AU Nose: Nares normal. Septum midline. Mucosa normal. No drainage or sinus tenderness Throat: Lips, mucosa, and tongue normal. Teeth and gums normal Neck: supple, symmetrical, trachea midline. Lungs: clear to auscultation bilaterally Heart: regular rate and rhythm, S1, S2 normal, no murmur, click, rub or gallop Abdomen: soft, non-tender. Bowel sounds normal. No masses, No organomegaly Extremities: extremities normal, atraumatic, no cyanosis or edema Skin: Skin color, texture, turgor normal. No rashes or lesions Lymph nodes: No lymphadenopathy Neuro: No obvious focal deficit Exam as above PATH LABS Labs from January 09 showed hemoglobin 14.4 iron 69 saturation 28 ferritin 381 bilirubin 1.6 Labs from March 19 showed WBC 11.5 hemoglobin 14.6 platelet 237,000 iron 68 saturation 26 [id number] total bilirubin 1.2 Labs from July 19 showed iron 75 saturation 27 ferritin 220 hemoglobin 14.4 hematocrit 44.7 Assessment: Plan: There are no active problems to display for this patient. Hereditary hemochromatosis with H63D homozygous state diagnosed September 11, 2023. Phlebotomy done on October 12, 2023. Patient was having difficulty getting the phlebotomy due to poorIV access. Patient did not have any further phlebotomy after initial 1 in September. Clinically asymptomatic. Labs showed normal ferritin and iron level. No need for phlebotomy. She will continue to avoid iron containing food. I have recommended regular exercise and weight loss. Follow-up in 6 months. Type 2 diabetes. Patient is on Mounjaro and insulin. This has been managed by the primary care physician. Hypertension. Stable. 07/23/2024 Taran Valenzuela MD TING MANAGER documented in this encounter Plan of Treatment Upcoming Encounters Date Type Department Care Team (Late st Contact Info) Description 01/21/2025 11:00 AM CDT Office Visit [facility] Oncology and Hematology - Stef [address] [place] [address] Taran Valenzuela MD [address] [facility] [address] [place] [address] Scheduled Orders Name Type Priority Associated Diagnoses Orde r Schedule CBC WITH DIFFERENTIAL Lab Stat Hereditary hemochromatosis Expected: 01/20/2025, Expires: 07/23/2025 FERRITIN Lab Routine Hereditary hemochromatosis Expected: 01/20/2025, Expires: 07/23/2025 IRON, TIBC, AND PERCENT SATURATION Lab Routine Hereditary hemochromatosis Expected: 01/20/2025, Expires: 07/23/2025 documented as of this encounter Visit Diagnoses Diagnosis Hereditary hemochromatosis- Primary documented in this encounter Care Teams Pharmacists Relationship Specialty Start Date End Date Jelani Reis MD PCP - General Internal Medicine 09/11/23 documented as of this encounter
--- OUTSIDE RECORDS SUMMARY | 2024-07-23 12:43 | XMS_ITS | Referral Summary ---
Author Organization [facility] Address [address] [place] [address] Care Team Providers [facility] [place] Department Manager Name Role Phone Micha Reis MD Primary Care Provide r Allergies Active Allergy Reactions Criticality Noted Date Comments Clindamycin Other (See comments) Low 04/23/2023 Morphine Other (See comments) Low 04/23/2023 Penicillins Hives,Other (See comments) Low Reaction: Reaction: Hives, ??, Medications calcium carbonate-vitam in D3 (CALCIUM 600 + D,3,) 1500 mg (600 mg elemental) -200 units per tablet Take 1 tablet by mouth 2 (two) times a day Active gabapentin (NEURONTIN) 300 mg capsule Take 2 capsules (600 mg total) by mouth 2 (two) times a day 2 8 Active metoprolol (LOPRESSOR) 50 mg tablet Take 1 tablet (50 mg total) by mouth 2 (two) times a day 8 Active BD ULTRA-FINE MINI PEN NEEDLE 31 gauge x 3/16 needle daily. 6 8 Active venlafaxine XR (EFFEXOR-XR) 75 mg 24 hr capsule Take 5 capsules (375 mg total) by mouth every morning 1 8 Active cetirizine (ZyrTEC) 10 mg tablet Take 1 tablet (10 mg total) by mouth every morning Active pen needle, diabetic (BD ULTRA-FINE MINI PEN NEEDLE) 31 gauge x 3/16 needle BD Ultra-Fine Mini Pen Needle 31 gauge x 3/16 UTD BID Active cranberry 400 mg capsule Take 420 mg by mouth nightly Active subcutaneous insulin pump (Omnipod Insulin Management) miscIndications :U 100-2.3 units per hour 2.3 Units 3 (three) times a day Changes every 3 days Active UNABLE TO FIND every 14 (fourteen) days Free style waldo Active UNABLE TO FIND Take by mouth every morning Calcitrol .25 mg every mornin Active lutein 20 mg tablet Take by mouth every morning Active ferrous gluconate (ferrous gluconate) 324 mg (37.5 mg of elemental iron) tablet Take by mouth every morning Active rosuvastatin (CRESTOR) 20 mg tabletIndicatio ns:hyperlipidem ia Take 1 tablet (20 mg total) by mouth 2 (two) times a week Sunday and at night Active semaglutide (OZEMPIC SUBQ) Inject 0.5 mg under the skin once a week Takes on Sundays Active losartan (COZAAR) 25 mg tabletIndicatio ns:hypertension Take 1 tablet (25 mg total) by mouth every morning Active acidophilus-pec tin, citrus 100 million cell-10 mg capsule Take by mouth every morning Active aspirin 81 mg enteric coated tabletIndicatio ns:Deep Vein Thrombosis Prevention Take 1 tablet (81 mg total) by mouth 2 (two) times a day for 14 days 28 tablet 1 Active oxyCODONE (ROXICODONE) 5 mg immediate release tabletIndicatio ns:Pain Take 1 tablet (5 mg total) by mouth every 4 (four) hours as needed for pain for up to 40 doses 40 tablet 1 Active Additional Information Patient not taking.Reported on 04/23/2023 Mounjaro 7.5 mg/0.5 mL pen injector Inject 7.5 mg every week by subcutaneous route at dinner for 90 days. Active HumaLOG 100 unit/mL vial for injection ADMINISTER 100 UNITS VIA UNSULIN PUMP DAILY 3 Active insulin pump cart,cont inf,BT (Omnipod Dash Pods, Gen 4,) cartridge Omnipod Dash 5 Pack Pod cartridge 0 Active Jardiance 25 mg tablet Take 1 tablet (25 mg total) by mouth every morning Active Active Problems Problem Noted Date Diagnosed Date Primary localized osteoarthrosis of shoulder reg ion 04/23/2023 Colitis 04/23/2023 Carcinoma of breast 04/23/2023 Overview (04/23/2023): bilateal masectomy Osteomyelitis of shoulder (CMS/HCC) 04/23/2023 Upper respiratory infection 02/26/2023 Morbid obesity 09/13/2022 Elevated liver enzymes 09/10/2022 Heart murmur 09/10/2022 Hypercalcemia 09/10/2022 Low serum vitamin B12 09/10/2022 Moderate recurrent major depression 09/10/2022 Vitamin D deficiency 09/10/2022 Pain in joint of right shoulder 09/10/2022 Low back pain 09/10/2022 Malignant tumor of breast 09/10/2022 Chronic kidney disease 09/10/2022 Acute left otitis media 08/02/2022 Osteoarthritis of right knee 12/06/2021 Arthralgia of right knee 11/28/2021 Candidiasis of vagina 10/21/2021 Dyslipidemia 08/07/2021 Sepsis 02/14/2021 Assessment & Plan (02/15/2021 3:26 PM CDT): S/p reverse right shoulder arthroplasty 02/11/21 after failed infected rotator cuff tear reconstruction in 2011 causing chronic pain and dislocation of the right shoulder. Surgery without complications and discharged home 02/12 with interscalene block for pain control. She was noted to become very altered with poor response and low oxygen saturations at home called EMS and presented to . On arrival febrile to met sepsis criteria with temp > 39, tachycardia, WBC 11.5 with lactate 0.9. Blood and urine cx obtained. CXR and CTA performed (no PE) with some concern for pneumonia started on Vancomycin and aztreonam and transferred to [facility] for further care. On arrival still some confusion but alert, conversant, afebrile with stable vital signs no longer requiring supplemental oxygen. It appears by documentation the interscalene pump was discontinued some time within the last 24 hours. Etiology of sepsis PNA ? Aspiration given AMS with vomiting and possible atelectasis related to interscalene block, now discontinued, vs less likely post op infection. No further fever or oxygen requirements. Sepsis syndrome resolved. Vancomycin discontinued with no growth on cultures. Will plan discharge home to complete 7 day course of levaquin Assessment & Plan (02/14/2021 2:10 PM CDT): S/p reverse right shoulder arthroplasty 02/11/21 after failed infected rotator cuff tear reconstruction in 2011 causing chronic pain and dislocation of the right shoulder. Surgery without complications and discharged home 02/12 with interscalene block for pain control. She was noted to become very altered with poor response and low oxygen saturations at home called EMS and presented to . On arrival febrile to met sepsis criteria with temp > 39, tachycardia, WBC 11.5 with lactate 0.9. Blood and urine cx obtained. CXR and CTA performed (no PE) with some concern for pneumonia started on Vancomycin and aztreonam and transferred to [facility] for further care. On arrival still some confusion but alert, conversant, afebrile with stable vital signs no longer requiring supplemental oxygen. It appears by documentation the interscalene pump was discontinued some time within the last 24 hours. Etiology of sepsis PNA ? Aspiration given AMS with vomiting and possible atelectasis related to interscalene block no discontinued, vs less likely post op infection -monitor blood cultures -continue broad spectrum abx Levaquin with vancomycin given prior history of MRSA infection of her right shoulder 2012 -notify ortho surgery team Dr Martinez of transfer Status post reverse total replacement of right urbano mena 02/14/2021 Assessment & Plan (02/15/2021 3:19 PM CDT): POD #3. Orthopedics aware of transfer for medical management. Orthopedic team consulted with no further recommendations. Follow up as scheduled as outpatient Assessment & Plan (02/14/2021 2:00 PM CDT): POD #3. Orthopedics aware of transfer for medical management. Consult for post op care Stage 3 chronic kidney disease 02/08/2021 Assessment & Plan (02/15/2021 3:22 PM CDT): Cr at discharge 2 days ago 0.9 now 1.14 due to AMS and poor po intake at home and arrived with sepsis syndrome. She additionally received IV contrast for PE protocol CT. With IVF Cr returned to baseline without evidence of contrast induced nephropathy. No taking adequate po to maintain hydration. Assessment & Plan (02/14/2021 2:10 PM CDT): Cr at discharge 2 days ago 0.9 now 1.14 due to AMS and poor po intake at home and arrived with sepsis syndrome. She additionally received IV contrast for PE protocol CT -continue IVF, documentation is unclear on what volume the patient received for sepsis volume resuscitation -renal dose meds -avoid further nephrotoxins Pyogenic arthritis of right shoulder region 11/2020 Overview (01/21/2021): Added automatically from request for surgery [id number] Encounter for preprocedural cardiovascular exami [facility] emergency department 09/16/2020 Essential (primary) hypertension 09/16/2020 Essential (primary) hypertension 09/16/2020 Malignant neoplasm of breast 09/16/2020 DANIEL on CPAP 09/16/2020 Diabetes mellitus 09/16/2020 Deviated nasal septum 06/01/2020 Obesity with body mass index 30 or greater 12/30 Hyperlipidemia 10/01/2019 Hypertensive disorder 10/01/2019 Obstructive sleep apnea syndrome 10/01/2019 Closed fracture of base of fifth metatarsal bone 04/11/2019 Closed fracture of lateral malleolus 03/03/2019 Sprain of left ankle 03/03/2019 Backache 11/28/2018 Cholecystitis 11/28/2018 Chronic colitis 11/28/2018 Diarrhea 11/28/2018 Herpes zoster 11/28/2018 Osteomyelitis of shoulder region ([facility]) 11/28 Pancreatitis 11/28/2018 Spinal stenosis 11/28/2018 Type 2 diabetes mellitus 11/28/2018 Assessment & Plan (02/15/2021 3:21 PM CDT): F/b Dr. Cao at [facility]. Last A1C is 7.7% on 01/17/21. On insulin pump (Omnipod with insulin lispro U100) plus semaglutide. Total daily basal insulin calculated at 57.2. Had been using her pump while hospitalized but now in the setting of altered mental status unclear how long her omnipod has been off. BG on arrival 191 and no documented insulin given in ED prior to transfer. Due to confusion at arrival, home insulin pump was not continued. Basal bolus insulin regimen was started at significantly reduced dosing compared to pump settings. BG remained controlled given appetite remains low post op with some nausea. Will continue dose reduced basal bolus insulin regimen with resumed use of self regulating insulin pump at discharge Assessment & Plan (02/14/2021 2:04 PM CDT): F/b Dr. Cao at [facility]. Last A1C is 7.7% on 01/17/21. On insulin pump (Omnipod with insulin lispro U100) plus semaglutide. Total daily basal insulin calculated at 57.2. Had been using her pump while hospitalized but now in the setting of altered mental status unclear how long her omnipod has been off. BG on arrival 191 and no documented insulin given in ED prior to transfer. -patient remains confused, will hold home insulin pump -Lantus 30 units with SSI. Appetite post op is not returned but not nauseated adjust basal bolus insulin as needed Assessment & Plan (02/11/2021 6:27 PM CDT): F/b Dr. Cao at [facility]. Last A1C is 7.7% on 01/17/21. On insulin pump (Omnipod with insulin lispro U100) plus semaglutide. See HPI for basal settings (total daily calculated at 57.2); bolus settings are mealtime SSI (see HPI) -Patient is AAOx4 and has capacity to self-administer boluses and understands the risks of hypoglycemia. She demonstrated proper technique while in the room and is ok to self-administer insulin. -Insulin pump settings ordered with backup dose placed in case pump failure. -Patient will follow outpatient for further titration -Please contact the Medicine Internet Architect if the pump becomes unattached, the patient is expected to be NPO, or the patient is too sedated to eat. 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 (CMS/HCC) 04/17/2016 Overview (09/22/2016): Primary malignant neoplasm of upper outer quadrant of female breast Personal history of primary malignant neoplasm o f breast 04/17/2016 Overview (09/22/2016): Personal history of primary malignant neoplasm of breast Morbid obesity (CMS/HCC) 01/01/2012 Overview (09/28/2017): Description: Bariatric Surg scheduled w/ [facility], 01/27 DANIEL on CPAP 01/01/2012 Hypertension 01/01/2012 Assessment & Plan (02/15/2021 3:19 PM CDT): BP stable in the setting of sepsis continued home meds losartan and metoprolol Assessment & Plan (02/14/2021 1:59 PM CDT): BP stable in the setting of sepsis. Hold losartan. Arthralgia of shoulder 12/27/2011 Malignant neoplasm of female breast 04/26/2011 Overview (09/28/2017): Description: RIGHT, 08/21. LEFT 11/22. Pain in ear 02/09/2011 Benign paroxysmal positional vertigo 12/08/2010 Immunizations Name Administration Dates Next Due Influenza, Quadrivalent, Spl it, Intramuscular 04/30/2019,07/04/2016,06/01/2014 Influenza, Quadrivalent, Spl it, Preservative Free, Intramuscular 04/24/2019,05/30/2018,2017,04/15 Influenza, Trivalent, IM (MDV) 05/05/2021,2012 Moderna SARS-CoV-2 Monovalen t Vaccination (12+ YRS) 05/05/2021,09/10/2020,08/13/2020 Sars-CoV-2, Unspecified 09/10/2020,08/13/2020 Tdap 05/30/2018 Social History Tobacco Use Types Packs/Day Years Used Date Smoking Tobacco: Never Smokeless Tobacco: Never Tobacco Cessation:Counseling Given: Not Answered AUDIT-C Answer Date Recorded Q1: How often do you have a drink containing alc ohol? Never 02/11/2021 Average Number of Drinks Not on file 021 Frequency of Binge Drinking Not on file 01/17 Comments No Sex and Gender Information Value Date Recorded Sex Assigned at Not on file Legal Sex Female 12:45 PM [employer] Gender Identity Not on file Sexual Orientation Straight 11/07/2020 3: 22 PM CDT Last Filed Vital Signs Vital Sign Reading Time Taken Comments Blood Pressure 130/76 03/02/2021 2:29 PM CDT Pulse 84 03/02/2021 2:29 PM CDT Temperature 36.3 ??C (97.4 ??F) 03/02/2021 2:29 PM CD T Respiratory Rate 18 03/02/2021 2:29 PM CDT Oxygen Saturation 95% 03/02/2021 2:29 PM CDT Inhaled Oxygen Concentration - - Weight 103.1 kg (227 lb 6.4 oz) 023 10:48 AM [employer] Height 161.3 cm (5' 3.5 ) 04/23/2023 10 :48 AM [employer] Body Mass Index 39.65 04/23/2023 10:48 AM [employer] Plan of Treatment Not on file Medical Devices Implanted Type Area Lehr Stripper Device Identifier Shelf Expiration Date Model / Serial / Lot [employer] [id number] Comprehensive Mini Taper Adapter Baseplate Glenoid Sterile Latex - [id number] - [id number] Implanted:Qty: 1 on 02/11/2021 by Oneal Martinez MD at [facility] Other - see comments Right: Shoulder [employer] [id number] 12/14/2030 [id number] / [id number] / [id number] Description:Mini Taper Adapt er [employer] [id number] 12mm 130mm Shoulder Stem Humeral Trabecular Metal Tivanium - S*+[id number]* - [id number] Implanted:Qty: 1 on 02/11/2021 by Oneal Martinez MD at [facility] Other - see comments Right: Shoulder [employer] [id number] 01/10/2031 [id number] / *[id number] * / [id number] Description:Stem [employer] [id number] 36mm Reverse Humerus 7d +0mm Offset Standard Liner Shoulder - S*+[id number]* - [id number] Implanted:Qty: 1 on 02/11/2021 by Oneal Martinez MD at [facility] Other - see comments Right: Shoulder [employer] [id number] 10/05/2028 [id number] / *[id number]* / [id number] Description:Reverse Shoulder Liner [employer] [id number] Comprehensive Fast Guide Baseplate Glenoid Sterile Latex Free - [id number] - [id number] Implanted:Qty: 1 on 02/11/2021 by Oneal Martinez MD at [facility] Other - see comments Right: Shoulder [employer] [id number] 07/15/2021 [id number] / [id number] / [id number] Description:VRS Glenoid [employer] 068509 Comprehensive Versa-Dial 36mm Glenosphere Color Coded Shoulder - [id number] 180 - [id number] Implanted:Qty: 1 on 02/11/2021 by Oneal Martinez MD at [facility] Other - see comments Right: Shoulder [employer] [id number] 12/09/2030 [id number] / [id number] / [id number] Description:Glenosphere [employer] 376716 3.2mm Central Screw Bit Drill Comprehensive Reverse Glenoid - S0 - [id number] Implanted:Qty: 1 on 02/11/2021 by Oneal Martinez MD at [facility] Screw Right: Shoulder [employer] 12/09/2030 [id number] / 0 / [id number] Description:Central Screw Dr ill Bit [employer] 523762 2.7mm Peripheral Screw Bit Drill Comprehensive Reverse Glenoid - S0 - [id number] Implanted:Qty: 1 on 02/11/2021 by Oneal Martinez MD at [facility] Screw Right: Shoulder [employer] 12/16/2030 [id number] / 0 / [id number] Description:Peripheral Screw Drill Bit [employer] 491657 Comprehensive 6.5mm 35mm Central Hexagonal 3.5mm Screw Bone - [id number] 110 - [id number] Implanted:Qty: 1 on 02/11/2021 by Oneal Martinez MD at [facility] Screw Right: Shoulder [employer] [id number] 08/18/2030 389583 / [id number] / [id number] [employer] 839512 Comprehensive 4.75mm 45mm Fix Angle Lock Hexagonal 3.5mm Screw - S0 - [id number] Implanted:Qty: 1 on 02/11/2021 by Oneal Martinez MD at [facility] Screw Right: Shoulder [employer] 06/17/2023 [id number] / 0 / [id number] [employer] 625561 Comprehensive 4.75mm 20mm Fix Angle Lock Hexagonal 3.5mm Screw - [id number] 790 - [id number] Implanted:Qty: 1 on 02/11/2021 by Oneal Martinez MD at [facility] Screw Right: Shoulder [employer] [id number] 11/09/2030 [id number] / [id number] / [id number] [employer] 065456 Comprehensive 4.75mm 20mm Fix Angle Lock Hexagonal 3.5mm Screw - [id number] - [id number] Implanted:Qty: 1 on 02/11/2021 by Oneal Martinez MD at [facility] Screw Right: Shoulder [employer] [id number] 11/07/2030 [id number] / [id number] / [id number] [employer] 984518 Comprehensive 4.75mm 35mm Fix Angle Lock Hexagonal 3.5mm Screw - [id number] - [id number] Implanted:Qty: 1 on 02/11/2021 by Oneal Martinez MD at [facility] Screw Right: Shoulder [employer] [id number] 05/12/2030 014531 / [id number] / [id number] Procedures Procedure Name Priority Date/Time Associated Diagnosis Comments EGFR Routine 02/15/2021 4:09 AM CDT from Last 3 Months or Most Recently Relevant to Health Maintenance Results * eGFR (02/15/2021 4:09 AM CDT) eGFR 93 mL/min/1.7 3 m2 [facility] Comment: Interpretive Data Reference Interval Normal ?>/= 90 mL/min/1.73m2 Mildly decreased* ? 60 - 89 mL/min/1.73m2 Mildly to moderately decreased ?45 - 59 mL/min/1.73m2 Moderately to severely decreased ??30 - 44 mL/min/1.73m2 Severely decreased ?15 - 29 mL/min/1.73m2 Kidney Failure ?< 15 ??mL/min/1.73m2 *Relative to young adult level Estimated glomerular filtration rate is determined by the CKD-EPI equation recommended by the National Kidney Foundation (KDIGO 2012 Clinical Practice Guideline for the Evaluation and Management of Chronic Kidney Disease. Kidney Intnl Suppl Jun 2012;3:1). The CKD-EPI equation should not be used for patients with unstable renal function and has not been validated in children and those over 70. Current interpretive data was last reviewed 2020 Blood 02/15/2021 4:09 AM CDT 02/15/2021 4:13 AM CDT us Marlene Grnaado JANITORIAL MANAGER LAB BLOOD ORDERABLES Fin al Result Performing Organization Address City/State/ZIP [place] Phone Number [facility] [address] [place] [address] from Last 3 Months or Most Recently Relevant to Health Maintenance Insurance [employer] SENIOR SUPPLEMENT [facility] MDCR HMO REF MDCR HMO REF MEDICARE SOLUTIONS Advance Directives For more information, please contact: [phone] * Full Code (Latest Code Status on File) Date Activated Date Inactivated Comments 02/14/2021 1:33 PM 02/15/2021 11:02 PM * Full Code Date Activated Date Inactivated Comments 02/11/2021 5:31 PM 02/12/2021 5:13 PM Care Teams [place] Department Manager Relationship Specialty Start Date End Date Micha Reis MD PCP - General Internal Medicine 11/28/18
--- OUTSIDE RECORDS SUMMARY | 2024-07-23 12:43 | XMS_ITS | Clinical Summary ---
Author Organization [facility] Address [address] [place] [address] Care Team Providers Care Combination Presser Name Role Phone Micha Reis MD Primary [...] on Vancomycin and aztreonam and transferred to [facility] for further care. On arrival still some [...] on Vancomycin and aztreonam and transferred to [facility] for further care. On arrival still some [...] (01/21/2021): Added automatically from request for surgery [id number] Encounter for preprocedural cardiovascular exami [facility] 09/16/2020 Essential (primary) hypertension 09/16/2020 Essential (primary) [...] Herpes zoster 11/28/2018 Osteomyelitis of shoulder region ([facility]) 11/28 Pancreatitis 11/28/2018 Spinal stenosis 11/28/2018 Type 2 diabetes mellitus 11/28/2018 Assessment & Plan (02/15/2021 3:21 PM CDT): F/b Dr. Cao at [facility]. Last A1C is 7.7% on [...] 2:04 PM CDT): F/b Dr. Cao at [facility]. Last A1C is 7.7% on [...] 6:27 PM CDT): F/b Dr. Cao at [facility]. Last A1C is 7.7% on [...] for further titration -Please contact the Medicine Personal Secretary if the pump becomes unattached, the patient [...] YRS) 05/05/2021,09/10/2020,08/13/2020 Sars-CoV-2, Unspecified 09/10/2020,08/13/2020 Tdap 05/30/2018 Surgical History Surgery Date Site/Laterality Comments MASTECTOMY Mastectomy, bilateral FLUORO GUIDED ASPIRATION SHOULDER RIGHT 12/05/2018 Right SECTION 1986, 1989 CHOLECYSTECTOMY 04/18/2014 - 05/17/2014 ROTATOR CUFF REPAIR Right 2010, 2012 MENISCUS SURGERY 06/18/2004 - 06/17/2005 Left BREAST SURGERY 11/16/2005 - 12/15/2005 Right R 2006 , left 2007 BREAST LUMPECTOMY 06/18/2005 - 06/17/2006 Right BACK SURGERY SPINE SURGERY 06/18/2015 - 06/17/2016 lower back Medical History Medical History Date Comments Type 2 diabetes mellitus (HCC) D iabetes type 2 Hypertension Hypertension 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 History of radiation therapy 2007 janay ast r Personal history of chemotherapy 2006 R breast Covid-19 04/2020 CKD (chronic kidney disease) Breast cancer (HCC) Sleep apnea 1994 Sleep apnea, use s CPAP PONV (postoperative nausea and vomiting) Motion sickness Arthritis Neuropathy in diabetes (HCC) Heart murmur Hypercholesteremia Peripheral neuropathy Obesity Pneumonia Allergic rhinitis Family History Medical History Relation Name Comments Arthritis Father Diabetes Father Heart disease Father Hypertension Father Arthritis Mother Cancer Mother Hypertension Mother Pancreatic cancer Mother Cancer, pa ncreas; Uterine cancer Mother Cancer, uteri ne; Other Other Family history of Descent: [place]; Relation Name Status Comments Father Mother Other Social History Tobacco Use Types Packs/Day Years [...] on file Legal Sex Female 12:45 PM STATEMENT CLERKS SUPERVISOR Gender Identity Not on file Sexual Orientation Straight 11/07/2020 3: 22 PM CDT Obstetrics History Last Filed Vital Signs Vital Sign Reading Time Taken Comments Blood Pressure 130/76 03/02/2021 2:29 PM CDT Pulse 84 03/02/2021 2:29 PM CDT Temperature 36.3 ??C (97.4 ??F) 03/02/2021 2:29 PM CD T Respiratory Rate 18 03/02/2021 2:29 PM CDT Oxygen Saturation 95% 03/02/2021 2:29 PM CDT Inhaled Oxygen Concentration - - Weight 103.1 kg (227 lb 6.4 oz) 023 10:48 AM STATEMENT CLERKS SUPERVISOR Height 161.3 cm (5' 3.5 ) 04/23/2023 10 :48 AM STATEMENT CLERKS SUPERVISOR Body Mass Index 39.65 04/23/2023 10:48 AM STATEMENT CLERKS SUPERVISOR Plan of Treatment Health Maintenance Due Date Last Done Comments Albumin Creatinine Ratio, Urine 1958 Breast Cancer Screening-Mammogram 1958 Colon Cancer Screening-Colonoscopy 1958 Depression Screening 1958 Hemoglobin A1C 1958 Hepatitis C Screening 1958 Osteoporosis Screening-Bone Density Scan 1958 Dilated Eye Exam 1958 Foot Exam 1958 Lipid Panel 1958 Pneumococcal vaccine 65+ (1 of 2 - PCV) 1964 Hepatitis B Screening 1976 Zoster Vaccine (1 of 2) 2008 Fall Risk Assessment 02/15/2022 02/15/2021 eGFR 02/15/2022 02/15/2021, 01/17, 02/12/2021, Additional history exists Well Visit 65+ 2023 Covid-19 Vaccine (6 - 2023-2 5 season) 2024 05/05/2021, 09/10/2020, 09/10/2020, Additional history exists Influenza Vaccine (#1) 2024 , 05/04/2021, 04/30/2019, Additional history exists DTaP/Tdap/Td Vaccine (2 - Td or Tdap) 05/30/2028 05/30/2018 Medical Devices Implanted Type Area Overhead Cleaner Maintainer Device Identifier Shelf Expiration Date Model / Serial / Lot [employer] [id number] Comprehensive Mini Taper Adapter Baseplate Glenoid Sterile Latex - [id number] - [id number] Implanted:Qty: 1 on 02/11/2021 by Oneal Martinez MD at [facility] Other - see comments Right: Shoulder [employer] [id number] 12/14/2030 [id number] / [id number] / [id number] Description:Mini Taper Adapt er [employer] [id number] 12mm 130mm Shoulder Stem Humeral Trabecular Metal Tivanium - S*+[id number]* - [id number] Implanted:Qty: 1 on 02/11/2021 by Oneal Martinez MD at [facility] Other - see comments Right: Shoulder [employer] [id number] 01/10/2031 [id number] / *[id number] * / [id number] Description:Stem [employer] [id number] 36mm Reverse Humerus 7d +0mm Offset Standard Liner Shoulder - S*+[id number]* - [id number] Implanted:Qty: 1 on 02/11/2021 by Oneal Martinez MD at [facility] Other - see comments Right: Shoulder [employer] [id number] 10/05/2028 [id number] / *+[id number]* / [id number] Description:Reverse Shoulder Liner [employer] [id number] Comprehensive Fast Guide Baseplate Glenoid Sterile Latex Free - [id number] - [id number] Implanted:Qty: 1 on 02/11/2021 by Oneal Martinez MD at [facility] Other - see comments Right: Shoulder [employer] [id number] 07/15/2021 [id number] / [id number] / [id number] Description:VRS Glenoid [employer] [id number] Comprehensive Versa-Dial 36mm Glenosphere Color Coded Shoulder - [id number] 180 - [id number] Implanted:Qty: 1 on 02/11/2021 by Oneal Martinez MD at [facility] Other - see comments Right: Shoulder [employer] [id number] 12/09/2030 098129 / [id number] / [id number] Description:Glenosphere [employer] [id number] 3.2mm Central Screw Bit Drill Comprehensive Reverse Glenoid - S0 - [id number] Implanted:Qty: 1 on 02/11/2021 by Oneal Martinez MD at [facility] Screw Right: Shoulder [employer] 12/09/2030 [id number] / 0 / [id number] Description:Central Screw Dr ill Bit [employer] [id number] 2.7mm Peripheral Screw Bit Drill Comprehensive Reverse Glenoid - S0 - [id number] Implanted:Qty: 1 on 02/11/2021 by Oneal Martinez MD at [facility] Screw Right: Shoulder [employer] 12/16/2030 [id number] / 0 / [id number] Description:Peripheral Screw Drill Bit [employer] 033429 Comprehensive 6.5mm 35mm Central Hexagonal 3.5mm Screw Bone - [id number] 110 - [id number] Implanted:Qty: 1 on 02/11/2021 by Oneal Martinez MD at [facility] Screw Right: Shoulder [employer] [id number] 08/18/2030 721997 / [id number] / [id number] [employer] 630708 Comprehensive 4.75mm 45mm Fix Angle Lock Hexagonal 3.5mm Screw - S0 - [id number] Implanted:Qty: 1 on 02/11/2021 by Oneal Martinez MD at [facility] Screw Right: Shoulder [employer] 06/17/2023 [id number] / 0 / [id number] [employer] [id number] Comprehensive 4.75mm 20mm Fix Angle Lock Hexagonal 3.5mm Screw - [id number] 790 - [id number] Implanted:Qty: 1 on 02/11/2021 by Oneal Martinez MD at [facility] Screw Right: Shoulder [employer] [id number] 11/09/2030 577298 / [id number] / [id number] [employer] [id number] Comprehensive 4.75mm 20mm Fix Angle Lock Hexagonal 3.5mm Screw - [id number] 680 - [id number] Implanted:Qty: 1 on 02/11/2021 by Oneal Martinez MD at [facility] Screw Right: Shoulder [employer] [id number] 11/07/2030 878283 / [id number] / [id number] [employer] [id number] Comprehensive 4.75mm 35mm Fix Angle Lock Hexagonal 3.5mm Screw - [id number] 070 - [id number] Implanted:Qty: 1 on 02/11/2021 by Oneal Martinez MD at [facility] Screw Right: Shoulder [employer] [id number] 05/12/2030 643045 / [id number] / [id number] Procedures Procedure Name Priority Date/Time Associated Diagnosis [...] 4:09 AM CDT 02/15/2021 4:13 AM CDT Marlene Granado NP LAB BLOOD ORDERABLES Fin al Result ZAY BJWCH [id number] [facility]. Department [place] [address] from Last 3 Months or Most Recently Relevant to Health Maintenance Insurance MEDICARE SOLUTIONS [employer] SENIOR SUPPLEMENT [place] [id number] [facility] HMO REF [facility] HMO REF MEDICARE SOLUTIONS Advance Directives For more information, please contact: [phone] * Full Code (Latest Code Status on File) Date Activated Date Inactivated Comments 02/14/2021 1:33 PM 02/15/2021 11:02 PM * Full Code Date Activated Date Inactivated Comments 02/11/2021 5:31 PM 02/12/2021 5:13 PM Care Teams Combination Presser Relationship Specialty Start Date End Date Micha Reis MD PCP - General Internal Medicine 11/28/18
--- OUTSIDE RECORDS SUMMARY | 2024-07-23 12:43 | XMS_ITS | Continuity of Care Document ---
Author Organization [facility] Address [address] [place] [address] [place] [address] Phone Care Team Providers Care Strategic Partnership Manager Name Role Phone Gordo Louis Unavailable Unavailable Procedures Procedure Date Eye Exam & Treatment Dilated Retinal Exam W Interpretation Co Refraction Office/outpatient Visit, Est Dilated Retinal Exam W Interpretation Co No Evidence Of Retinopathy In Prior Year No Script Eye Exam & Treatment Advance Directives Directive Yes / No Effective Date File Name No Information Encounters Encounter Description Practice Location Reason(s) For Visit Diagnoses Date Provider Providers Copied on Encounter [facility], [address] [place] [address] [address], [place], [place], [id number], [place] tel:[phone] [facility] No Information 3-201 0 Krishnasamy Gordo. [address] [facility] [address], [place], [address], [place]. tel:[phone] Office/outpat ient Visit, [facility], [address] [place] [address] [address], [place], [place], [id number], [place] tel:[phone] [facility] No Information 7-200 9 Krishnasamy Gordo. [address] [facility] [address], [place], [address], [place]. tel:[phone] [facility] Eye [facility], [address], [place], [place], [address], [place] tel:[phone] [facility] No Information [address] Angie Dotson. [address] [facility], [address], [place], [place], [address], [place]. tel:[phone] Family History Family Member Type Diagnosis Age At Onset No Information Payers Payer name Insurance type Covered democrat ID Authoriza tion(s) Medicare [facility] [id number] Social History Type Description Quantity Date Captured Comments Sex Female Smoking Status No Information Chief Complaint And Reason For Visit No Information Reason For Referral Reason For Referral No Information History Of Present Illness Encounter Date Complaint History Of Prese nt Illness No Information Functional Status Date Functional Assessmen t No Information Instructions Date Instruction Additional Infor mation No Information Assessments Type Assessment Date No Information Patient Care Teams Name Effective Dates (start - stop) Status Members No Information
--- OUTSIDE RECORDS SUMMARY | 2024-07-23 12:43 | XMS_ITS | Clinical Summary ---
Author Organization [facility] Address [address] [place] [address] Phone Care Team Providers Care Mirror Installer Name Role Phone Provider, Not On File Primary Care Provider Unav ailable Social History Tobacco Use Types Packs/Day Years Used Date Smoking Tobacco: Never Assessed Comments Unknown Sex and Gender Information Value Date Recorded Sex Assigned at Not on file Legal Sex Female 10:26 AM CDT Gender Identity Not on file Sexual Orientation Not on file Plan of Treatment Health Maintenance Due Date Last Done Comments DEXA Bone Density 1958 Hepatitis C Virus (HCV) Screening 1958 Pap Smear 1979 Cervical Cancer Screening (CCS) 1988 HPV/Cotest 1988 Colonoscopy 2003 Colorectal Cancer Screening 2003 Cologuard 2008 Immunochemical Fecal Occult Blood 2008 Mammogram 2008 Pneumococcal Immunization (50+ years) (1 of 1 - PCV) 2008 Zoster Immunization (1 of 2) 2008 Influenza Immunization (#1) 02/17/202405/18, 2017, 07/04/2016, Additional history exists SARS-COV-2 Immunization ( season) 2024 05/04/2021, 09/10/2020, 08/13/2020 Respiratory Syncytial Virus (RSV) Immunization (Adult) (1 - 1-dose 75+ series) 2033 DTaP/Tdap/Td Immunization Discontinued 05/30/2018 TdaP Immunization Completed 05/30/2018 Hepatitis B Immunization Aged Out No longer eligible based on patient's age to complete this topic Meningococcal Immunization (ACWY) Aged Out No longer eligible based on patient's age to complete this topic Rotavirus Immunization Aged Out No lo nger eligible based on patient's age to complete this topic Insurance MEDICARE AET [facility] Care Teams Mirror Installer Relationship Specialty Start Date End Date Provider, Not On File [place] PCP - General 09/23/18
--- OUTSIDE RECORDS SUMMARY | 2024-07-23 12:43 | XMS_ITS | Encounter Summary ---
Author Organization [facility] [facility] Address [address] [place] [address] Care Team Providers Care Dental Technician Metal Name Role Phone Jelani Reis MD Primary Care Provider Encounter Details Date Type Department Care Team (Late Contact Info) Description 07/23/[address] [facility] Oncology and Hematology - [address] [place] [address] Taran Valenzuela MD [address] [place] [address] Social History Tobacco Use Types Packs/Day Years Used Date Smoking Tobacco: Never Smokeless Tobacco: Never Alcohol Use Standard Drinks/Week Comments Yes 0 (1 standard drink = 0.6 oz pur e alcohol) Socially Comments Unknown Sex and Gender Information Value Date Recorded Sex Assigned at Not on file Legal Sex Female 10:30 PM CDT Gender Identity Not on file Sexual Orientation Not on file documented as of this encounter Plan of Treatment Upcoming Encounters Date Type Department Care Team (Late st Contact Info) Description 01/21/2025 11:00 AM CDT Office Visit [facility] Oncology and Hematology - [address] [place] [address] Taran Valenzuela MD [address] [place] [address] documented as of this encounter Procedures Procedure Name Priority Date/Time Associated Diagnosis Comments CBC WITH DIFFERENTIAL Routine 07/23/2024 11:41 AM LABORER/GRADE CHECK documented in this encounter Results * CBC WITH DIFFERENTIAL (07/23/2024 11:41 AM LABORER/GRADE CHECK) Blood us Taran Valenzuela MD HEMATOLOGY ORDERABLES Final Res ult documented in this encounter Visit Diagnoses Not on filedocumented in this encounter Care Teams Dental Technician Metal Relationship Specialty Start Date End Date Jelani Reis MD PCP - General Internal Medicine 09/11/23 documented as of this encounter
--- OUTSIDE RECORDS SUMMARY | 2024-07-23 12:43 | XMS_ITS ---
Author Organization [facility] Address [address] [place] [address] Care Team Providers Care Rails Developer Name Role Phone Micha Reis MD Primary Care Provide r Active Problems Problem Noted Date Diagnosed Date [...] on Vancomycin and aztreonam and transferred to [facility] for further care. On arrival still some [...] on Vancomycin and aztreonam and transferred to [facility] for further care. 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 Cao at [facility]. Last A1C is 7.7% on 01/17/21. On [...] 2:04 PM CDT): F/b Dr. Cao at [facility]. Last A1C is 7.7% on 01/17/21. On [...] 6:27 PM CDT): F/b Dr. Cao at [facility]. Last A1C is 7.7% on 01/17/21. On [...] further titration -Please contact the Medicine Personal Caregiver if the pump becomes unattached, the patient is expected to be NPO, or the patient is too sedated to eat. 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 ([facility]) 04/17/2016 Overview (09/22/2016): Primary malignant neoplasm of upper outer quadrant of female breast Personal history of primary malignant neoplasm o f breast 04/17/2016 Overview (09/22/2016): Personal history of primary malignant neoplasm of breast Morbid obesity ([facility]) 01/01/2012 Overview (09/28/2017): Description: Bariatric Surg scheduled [...] ear 02/09/2011 Benign paroxysmal positional vertigo 12/08/2010 Current Oncology Plans No current plan information found. Past Plans No past plan information found. Radiation Treatments * No radiation treatments are documented for this patient in [facility]. Treatments may have been administered in another system. Lifetime Dose Tracking * Chemical Lifetime Dose Automatic Entry Manual Entr y Fluoro Time 0.45 minutes 0.45 minutes 0 minutes Air kerma at the reference point (Ka,r) 0.09 mGy 0 .09 mGy 0 mGy DLP 1,036 mGycm 1,036 mGycm 0 mGycm
--- OUTSIDE RECORDS SUMMARY | 2024-07-23 12:44 | XMS_ITS | Data Portability ---
Author Organization [place] [facility], Main Office Address [address] [place] [address] Care Team Providers Care Biology Adjunct Instructor Name Role Phone CALLIE REIS Primary Care Provider CALLIE REIS Referring Provider [phone] BRYANT FARLEY Upholsterer Helper DAISY FARLEY Cutting Inspector Assessment Encounter Date Assessment Date Assessment LastModified by Organization Details LastModified Time 08/28/2023 08/28/2023 Assessment: Delayed sleep phase syndrome Very severe OSAHS, AHI = 57, uncontrolled with CPAP and autoCPAP PLMD High transferrin saturation, on iron supplements since 2019 Plan: The following were reviewed and explained to the patient: [facility] split night sleep study 12/12/19 AHI = 57, Duc & Fani small Eson 2 nasal mask @ 12 cmH2O, PLMI = 12 Transferrin saturation 08/08/23 60% Ferritin 08/08/23 607 ng/mL Hct 08/08/23 46.8% Elevation in periodic limb movement index may be contributed by venlafaxine. Non-pharmacologic therapy options for periodic limb movement disorder include avoidance of aggravating drugs and substances, mental alerting activities, short daily hemodialysis for patients in renal failure, exercise, leg massage, stretching calf muscles, use of a weighted blanket and applied heat. Patient will cut down on caffeine intake. BUN, Creatinine, Vitamin E, Vitamin B12, RBC folate, ESR, Magnesium and Hgb are within normal limits. Patient is on FeSO4 supplements and instructed to discontinue this today. With high transferrin saturation, the patient will be referred to Taran Valenzuela MD @ [address], [place] [address], T[place] , FAX for evaluation of possible hemochromatosis. We will hold off on dopaminergic therapy for now. PAP compliance downloaded and interpreted x 20 minutes. Data reviewed and explained to the patient. Average apnea/hypopnea index (AHI) is 29. Patient used PAP > 4 hours 100% of the time. PAP is set at 13-20 cmH2O. PAP will remain at 13-20 cmH2O until re-titration sleep study. Oxygen supplementation: none Patient is benefiting from PAP therapy. Encouraged patient to maintain PAP use more than 70% of the time. Statement of PAP use and benefits will be sent to the home care store. Educated the patient on problems and solutions associated with positive airway pressure (PAP) use. Difficulty tolerating pressure, mask leaks, intolerance of interface, nasal congestion, claustrophobic response, dry mouth, and unintentional mask removal during sleep were covered. Patient's mask leaks air. We will ensure the mask is situated properly. Patient can wear protective eye covering during sleep, and the mask can be resized. Patient has intolerance to interface. Patient will loosen mask slightly, ensure mask is situated properly, inspect and replace interface if worn out, use barrier such as moleskin or bandage for irritation at bridge of nose, have a temporary holiday from PAP, resize mask or obtain an oral interface. Dry mouth is a normal occurrence for people who just start out on PAP therapy because they are not used to air blowing in to the throat to hold open. Dry mouth is exacerbated for people who wear nasal PAP mask and whose jaw drops open during sleep. Not only does this create a much less efficient therapy because of leakage, it also causes dry mouth. There are a couple solutions to help prevent this type of problem. A simple solution would be to wear a chinstrap which essentially holds the jaw in place. A second solution would be a switch to a full face mask which covers both the nose and mouth. Although this is another easy solution, using a full face mask for some could seem claustrophobic or confining. There is no silver bullet solution as no single mask is right for everybody. Sometimes it takes a bit of experimentation to find a PAP mask which best meets the patient's needs as well as fits comfortably. Another tactic is to use a humidifier on your PAP machine. Most new PAP machines have integrated humidifiers. Humidification is qiu when dealing with symptoms of dry mouth because the humidifier can supply both warm and room temperate air. Even a small amount of humidity in the airflow will help nasal passages to stay hydrated. If a person is using both a full face mask and a PAP machine with a heated humidifier and is still experiencing dry mouth, an ill-fitted PAP mask might be causing the problem. Leakage can be caused by a mask that is to large or small, the wrong style mask, the cushion is degraded or simply because the mask's straps aren't adjusted correctly. If leakage occurs, dry air from the room can leak in while humidification escapes. The result is reduced humidification within the circuit and resulting in dry throat and mouth. Finally, beyond factors involving the PAP machine and mask, dry mouth can also be caused or worsened by dehydration. The general recommendation to during eight 8 oz. glasses of water a day might be too little for many people. When people drink large amounts of coffee or other caffeine beverages, or sweat a lot during the day, making sure to rehydrate is an important part of PAP therapy. Provided the patient with a list of local home care stores where positive airway pressure (PAP) units, accoutrement, and services are available. Home care store selection is based on patient's insurance carrier. Patient will setup an appointment with [facility] for supplies and pressure adjustments. A major predictor of success with use of PAP is follow-up with both the respiratory supplier and the treating physician. The download results can show the treating physician information about adherence to treatment, residual AHI while on treatment and presence of large mask leakage. This information is especially helpful if the patient has residual sleepiness despite treatment. General information on sleep disordered breathing, evaluation of sleep disordered breathing, treatment with PAP therapy, and living with PAP therapy were covered. We discussed with the patient the impact of weight on: Sleep disordered breathing Hypertension Hyperlipidemia DM Fatty liver Left 5th metatarsal fracture Left lateral malleolar fracture Thoracolumbar spondylosis Levoscoliosis Left knee OA We discussed with the patient the benefit of PAP therapy on: Sleep disordered breathing Depression Rhinitis Hypertension DM Educated the patient on sleep hygiene measures. Relaxing rituals to rest easy, understanding foods with positive and negative impact on sleep, creating a peaceful sleep environment, timing of exercise, using herbal sleep aids, and practicing sleep-friendly meditation were covered. To determine how much sleep is needed, the patient will assess where she falls on the spectrum, examine what lifestyle factors such as work schedules and stress are affecting the quality and quantity of sleep. In general, adults need 7-9 hours of sleep. Educated the patient regarding foods that promote sleep. These include but are not limited to cherries, bananas, toast, oatmeal, and warm milk. Educated the patient regarding foods and drinks to avoid before bedtime. These include but are not limited to aged cheese, chocolate, spicy foods, tomato-based sauces, soy, ginseng tea and processed meat. Advocated influenza vaccination annually and pneumonia vaccination LIAT. Advocated weight loss through diet and exercise. Patient's ideal body weight according to height and gender is up to 120 lbs. Encouraged patient to adjust caloric intake to maintain/achieve ideal body weight, emphasizing on fruits, vegetables, whole grains, and fat-free or low-fat products. These include lean meats, poultry, fish, beans, eggs, and nuts and foods that are low in saturated fats, trans-fats, cholesterol, salt (sodium), and glycemic index. Stressed the importance of regular exercise up to the patient's capacity limits. In this case, we recommend regular (4 x a week or more) walking or other light activity. Patient to monitor BP daily and bring records to PCP for further management. Follow-up: 1 week after re-titration study Not available 08/28/2023 14:40:06 11/21/2023 11/21/2023 04/28/2022: CBC: WNL Urine micro alb 34.4 Gluc 151, Ca 10.3 08/15/2022: A1C 7.6 TSH/FT 0.96 TG 169 11/20/2022: A1C 8.9 TG 197 Gluc 176 Calculated calcium 10.5H 02/14/2023: Dr Cao/Dr Titi PIERRE A1C 7.7 TG 212 Gluc 119 HCT 46.8 07/19/2023: A1C 6.6 11/16/2023: A1C 6.4 Gluc 151, T bili 1.40H Not available 11/21/2023 12:57:56 03/19/2024 03/19/2024 04/28/2022: CBC: WNL Urine micro alb 34.4 Gluc 151, Ca 10.3 08/15/2022: A1C 7.6 TSH/FT 0.96 TG 169 11/20/2022: A1C 8.9 TG 197 Gluc 176 Calculated calcium 10.5H 02/14/2023: Dr Cao/Dr Farley IJ A1C 7.7 TG 212 Gluc 119 HCT 46.8 07/19/2023: A1C 6.6 11/16/2023: A1C 6.4 Gluc 151, T bili 1.40H 01/10/2024: WBC 10.6 01/14/2024: BUN 20H Gluc 147, Ca 10.7, T Bili 1.6 03/14/2024: A1C 6.5 Gluc 103, AST 50, T bili 1.80 HCT 46.0 Addendum: 04/11/2024 03/19/2024: Dr Valenzuela Gluc 123 Not available 04/11/2024 21:49:00 03/25/2024 03/25/2024 Time spent with patient included: preparing to see patient by reviewing tests, obtaining and reviewing history, medical examination and evaluation, counseling and educating the patient, ordering medications and tests, documenting clinical information in EHR, independently interpreting results and communicating results to the patient for a total of 35 minutes. 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 Non-pharmacologic therapy options for periodic limb movement disorder include avoidance of aggravating drugs and substances, mental alerting activities, short daily hemodialysis for patients in renal failure, exercise, leg massage, stretching calf muscles, use of a weighted blanket and applied heat. Patient will cut down on caffeine intake. BUN, Creatinine, Vitamin E, Vitamin B12, RBC folate, ESR, Magnesium and Hgb are within normal limits. Patient has discontinued FeSO4 supplements. We will hold off on dopaminergic therapy for now. PAP compliance downloaded and interpreted x 20 minutes. Data reviewed and explained to the patient. Average apnea/hypopnea index (AHI) is 22.1. Patient used PAP > 4 hours 100% of the time. PAP is set at 13-20 cmH2O. PAP will be reset at 14-18 cmH2O until re-titration sleep study. Keep ramp start at 6 cmH2O. Keep ramp duration at 5 minutes. Keep EPR off. Keep humidifier at level 2. Oxygen supplementation: none Patient is benefiting from PAP therapy. Encouraged patient to maintain PAP use more than 70% of the time. Statement of PAP use and benefits will be sent to the home care store. Educated the patient on problems and solutions associated with positive airway pressure (PAP) use. Difficulty tolerating pressure, mask leaks, intolerance of interface, nasal congestion, claustrophobic response, dry mouth, and unintentional mask removal during sleep were covered. Patient's mask leaks air. We will ensure the mask is situated properly. Patient can wear protective eye covering during sleep, and the mask can be resized. Patient has intolerance to interface. Patient will loosen mask slightly, ensure mask is situated properly, inspect and replace interface if worn out, use barrier such as moleskin or bandage for irritation at bridge of nose, have a temporary holiday from PAP, resize mask or obtain an oral interface. Dry mouth is a normal occurrence for people who just start out on PAP therapy because they are not used to air blowing in to the throat to hold open. Dry mouth is exacerbated for people who wear nasal PAP mask and whose jaw drops open during sleep. Not only does this create a much less efficient therapy because of leakage, it also causes dry mouth. There are a couple solutions to help prevent this type of problem. A simple solution would be to wear a chinstrap which essentially holds the jaw in place. A second solution would be a switch to a full face mask which covers both the nose and mouth. Although this is another easy solution, using a full face mask for some could seem claustrophobic or confining. There is no silver bullet solution as no single mask is right for everybody. Sometimes it takes a bit of experimentation to find a PAP mask which best meets the patient's needs as well as fits comfortably. Another tactic is to use a humidifier on your PAP machine. Most new PAP machines have integrated humidifiers. Humidification is qiu when dealing with symptoms of dry mouth because the humidifier can supply both warm and room temperate air. Even a small amount of humidity in the airflow will help nasal passages to stay hydrated. If a person is using both a full face mask and a PAP machine with a heated humidifier and is still experiencing dry mouth, an ill-fitted PAP mask might be causing the problem. Leakage can be caused by a mask that is to large or small, the wrong style mask, the cushion is degraded or simply because the mask's straps aren't adjusted correctly. If leakage occurs, dry air from the room can leak in while humidification escapes. The result is reduced humidification within the circuit and resulting in dry throat and mouth. Finally, beyond factors involving the PAP machine and mask, dry mouth can also be caused or worsened by dehydration. The general recommendation to during eight 8 oz. glasses of water a day might be too little for many people. When people drink large amounts of coffee or other caffeine beverages, or sweat a lot during the day, making sure to rehydrate is an important part of PAP therapy. Provided the patient with a list of local home care stores where positive airway pressure (PAP) units, accoutrement, and services are available. Home care store selection is based on patient's insurance carrier. Patient will setup an appointment with [facility] for supplies and pressure adjustments. A major predictor of success with use of PAP is follow-up with both the respiratory supplier and the treating physician. The download results can show the treating physician information about adherence to treatment, residual AHI while on treatment and presence of large mask leakage. This information is especially helpful if the patient has residual sleepiness despite treatment. General information on sleep disordered breathing, evaluation of sleep disordered breathing, treatment with PAP therapy, and living with PAP therapy were covered. We discussed with the patient the impact of weight on: Sleep disordered breathing Hypertension Hyperlipidemia DM Fatty liver Left 5th metatarsal fracture Left lateral malleolar fracture Thoracolumbar spondylosis Levoscoliosis Left knee OA We discussed with the patient the benefit of PAP therapy on: Sleep disordered breathing Depression Rhinitis Hypertension DM Educated the patient on sleep hygiene measures. Relaxing rituals to rest easy, understanding foods with positive and negative impact on sleep, creating a peaceful sleep environment, timing of exercise, using herbal sleep aids, and practicing sleep-friendly meditation were covered. To determine how much sleep is needed, the patient will assess where she falls on the spectrum, examine what lifestyle factors such as work schedules and stress are affecting the quality and quantity of sleep. In general, adults need 7-9 hours of sleep. Educated the patient regarding foods that promote sleep. These include but are not limited to cherries, bananas, toast, oatmeal, and warm milk. Educated the patient regarding foods and drinks to avoid before bedtime. These include but are not limited to aged cheese, chocolate, spicy foods, tomato-based sauces, soy, ginseng tea and processed meat. Advocated influenza vaccination annually and pneumonia vaccination LIAT. Advocated weight loss through diet and exercise. Patient's ideal body weight according to height and gender is up to 120 lbs. Encouraged patient to adjust caloric intake to maintain/achieve ideal body weight, emphasizing on fruits, vegetables, whole grains, and fat-free or low-fat products. These include lean meats, poultry, fish, beans, eggs, and nuts and foods that are low in saturated fats, trans-fats, cholesterol, salt (sodium), and glycemic index. Stressed the importance of regular exercise up to the patient's capacity limits. In this case, we recommend regular (4 x a week or more) walking or other light activity. Patient to monitor BP daily and bring records to PCP for further management. Follow-up: 1 week after re-titration study Not available 07/15/2024 10:59:56 Plan of Treatment Reminders Order Date Submit Date Provider Last Modified By Organization Details Last Modified Time Details Appointments Any 15 2024 02:00P Wolfgang perez MD Not available Not available Not available Lab lipid panel, serum [address] (Lab), [address] [place], [address], 05/19/2024 15:19:26 CMP, serum or plasma 2023 024 [facility] (Lab), [address] [place], [address], 03/19/2024 17:53:29 CBC w/ auto diff 2023 024 [facility] (Lab), [address] [place], [address], 12/03/2023 12:13:41 TSH, serum or plasma [address] (Lab), [address] [place], [address], 05/19/2024 15:19:27 vitamin D, 25-hydrox y, total, serum [address] (Lab), [address] [place], [address], 05/19/2024 15:19:27 glycohemo globin, total, blood [address] (Lab), [address] [place], [address], 05/19/2024 15:19:26 microalbu min, urine 2023 024 [facility] (Lab), [address] [place], [address], 03/17/2024 09:24:38 vitamin B12 + folate, serum or blood [address] (Lab), [address] [place], [address], 05/19/2024 15:19:27 lipid panel, serum [address] (Lab), [address] [place], [address], 03/19/2024 11:47:49 CMP, serum or plasma [address] (Lab), [address] [place], [address], 03/19/2024 11:47:49 CBC w/ auto diff [address] (Lab), [address] [place], [address], 03/19/2024 11:47:49 TSH, serum or plasma [address] (Lab), [address] [place], [address], 03/19/2024 11:47:50 vitamin D, 25-hydrox y, total, serum [address] (Lab), [address] [place], [address], 03/19/2024 11:47:50 glycohemo globin, total, blood [address] (Lab), [address] [place], [address], 03/19/2024 11:47:48 microalbu min, urine [address] (Lab), [address] [place], [address], 03/19/2024 11:47:48 vitamin B12 + folate, serum or blood 2023 024 [email or web address] [facility] (Lab), [address], [place], [address], 03/19/2024 11:47:50 Referral hematolog ist referral - high transferr in [facility], rule out hemochrom atosis, patient instructe d to discontin ue iron supplemen t as of 08/28/232023 024 [email or web address] 5 Taran Nicolas, [address], [place], [address], 10/25/2023 14:33:48 nephrolog ist referral 2023 024 [email or web address] Bryant Farley MD (Nephrology, [address], [address], [place], [address], 05/19/2024 15:19:57 cardiolog ist referral 2023 024 [place], [address], [address], [place], [address], 12/18/2023 12:49:18 diabetic ophthalmo logy referral 2023 024 [email or web address] Magno Avendanokdap, [address], [place], [address], 05/19/2024 15:19:55 podiatris t referral 2023 024 [email or web address] Randall Villareal DPM, [address], [address], [place], [address], 05/19/2024 15:19:57 endocrino logy referral 2023 024 [email or web address] Jose Garrett MD, [address], [place], [address], 05/19/2024 15:19:58 nephrolog ist referral 2023 024 [email or web address] Bryant Farley MD (Nephrology, [address], [address], [place], [address], 04/02/2024 16:11:14 cardiolog ist referral 2023 024 [email or web address] [place], [address], [address], [place], [address], 04/16/2024 08:50:21 diabetic ophthalmo logy referral 2023 024 Magno Tucker, [address] [facility], [place], [address], 03/19/2024 11:57:09 podiatris t referral 2023 024 Randall Villareal DPM, [address], [address], [place], [address], 04/02/2024 16:12:40 gastroent erologist referral 2023 024 ARNULFO Colbert MD, [address], [address], [place], [address], 04/17/2024 19:07:44 Procedures None recorded. Surgeries None recorded. Imaging polysomno gram, titration study - CPAP, BPAP, BPAP S/T, BPAP ASV titration , EF 63% as of 2020; no auth required [address] [facility], [address] [place], [address], 12/24/2023 11:52:15 [place], liver [address] ([facility]), [address] [place], [address], 07/16/2024 12:34:33 polysomno gram, titration study - Please call patient to schedule. CPAP, BPAP, BPAP S/T, BPAP ASV titration , EF 63% as of 2020 025 [facility] ([facility] [place], [address], 07/15/2024 15:45:27 Medication Orders None recorded. Patient TargetsNo targets recorded. Patient Instructions Encounter Date Encounter Id Patient Instructions Last Modified By Organization Details Last Modified Time 11/21/2023 [id number] dementia rating scale-2* [email or web address] Not available 11/21/2023 13:27:59 alcohol misuse* [email or web address] Not available 11/21/2023 13:27:45 depression screening* [email or web address] Not available 11/21/2023 13:27:30 multi-dimensiona l health assessment questionnaire* [email or web address] Not available 11/21/2023 13:29:22 advance directiv es: care instructions [email or web address] Not available 11/21/2023 13:13:41 [place] Advance Directives [email or web address] Not available 11/21/2023 13:13:42 advance care planning: care instructions [email or web address] Not available 11/21/2023 13:13:42 Personalized [facility] lt Plan and Screening Recommendations Advance Directives - Do you have one? Advance Directives - Do we have your advance directive on file in your health record? Primary Prevention/Interven tion (prevents or decreases the chance of common diseases from occurring) Smoking Risk: Non Smoker Alcohol Misuse Screening: Negative Weight: Physical activity: Nutrition: Fall Risk (screened today): Vaccines Pneumococcal: Influenza: Chronic Disease Risks Stroke: I have no recommendations Act denise diagnosis, Continue current treatment plan Heart Attack: I have no recommendations Act denise diagnosis, Continue current treatment plan Clogging of the Arteries: I have no recommendations Act denise diagnosis, Continue current treatment plan Diabetes: Active diagnosis, Continue current treatment plan Secondary Prevention/Interven tion (detects treatable diseases before they may cause symptoms, disability, or ) Breast Cancer Screening with mammogram: Cervical/Uterine/Ov titus Cancer Screening: Osteoporosis Screening: Date Screening Last Performed: Colon Cancer Screening: Date Screening Last Performed: Eye Disease Screening: Dementia Risk: Depression Screening: Active diagnosis, Continue current treatment plan [email or web address] Not available 11/16/2023 10:11:46 Reason for Referral high transferrin saturation, rule out hemochromatosis, patient instructed to discontinue iron supplement as of 08/28/23 Referring Physician: Jan Jeffries, Pulmonary Disease, Encounter Date: 08/28/2023 Diabetic Ophthalmology Refer ral for Type 2 diabetes mellitus without complication Referring Physician: Callie Reis Internal Medicine, Encounter Date: 11/21/2023 Upholsterer Helper Referral for Ch ronic kidney disease Referring Physician: Sumit London, Encounter Date: 11/21/2023 Coal Mine Inspector Referral for Type 2 diabetes mellitus without complication Referring Physician: Sumit London, Encounter Date: 11/21/2023 Endocrinology Referral for T ype 2 diabetes mellitus without complication Referring Physician: Sumit London, Encounter Date: 11/21/2023 Cutting Inspector Referral for Es sential hypertension Referring Physician: Sumit London, Encounter Date: 11/21/2023 Diabetic Ophthalmology Refer ral for Type 2 diabetes mellitus without complication Referring Physician: Sumit London, Encounter Date: 03/19/2024 Upholsterer Helper Referral for Ch ronic kidney disease Referring Physician: Sumit London, Encounter Date: 03/19/2024 Coal Mine Inspector Referral for Type 2 diabetes mellitus without complication Referring Physician: Sumit London, Encounter Date: 03/19/2024 Cutting Inspector Referral for Es sential hypertension Referring Physician: Sumit London, Encounter Date: 03/19/2024 Radiator Specialist Referral for Liver enzymes level above reference range Referring Physician: Sumit London, Encounter Date: 03/19/2024 Results Created Date Observation Date Name Description Value Unit Range Abnormal Flag Note LastModifiedBy Organization Detail LastModifiedTime 11/16/19 24 11/16/2023 CBC/C OMPLE TE BLD COUNT W/DIF F white blood cells 9.6 x10'3 /uL 4.2-10 .8 Not Available [facility] (Lab) [address] [place], [address], 11/16/2023 14:00:04 11/16/19 24 11/16/2023 CBC/C OMPLE TE BLD COUNT W/DIF F red blood cells 5.00 x10'6 /uL 3.80-5 .20 Not Available [facility] (Lab) [address] [place], [address], 11/16/2023 14:00:04 11/16/19 24 11/16/2023 CBC/C OMPLE TE BLD COUNT W/DIF F hemoglobin 14.6 g/dL 12.0-1 5.6 Not Available [facility] (Lab) [address] [place], [address], 11/16/2023 14:00:04 11/16/19 24 11/16/2023 CBC/C OMPLE TE BLD COUNT W/DIF F hematocrit 44.3 % 35.7-4 5.7 Not Available [facility] (Lab) [address] [place], [address], 11/16/2023 14:00:04 11/16/19 24 11/16/2023 CBC/C OMPLE TE BLD COUNT W/DIF F mean red cell volume 88.6 fL 82.0-9 9.0 Not Available [facility] (Lab) [address] [place], [address], 11/16/2023 14:00:04 11/16/19 24 11/16/2023 CBC/C OMPLE TE BLD COUNT W/DIF F mean red cell hemoglobin 29.2 pg 27.0-3 3.0 Not Available [facility] (Lab) [address] [place], [address], 11/16/2023 14:00:04 11/16/19 24 11/16/2023 CBC/C OMPLE TE BLD COUNT W/DIF F mean RBC HGB concentratio n 33.0 g/dL 31.0-3 6.0 Not Available [facility] (Lab) [address] [place], [address], 11/16/2023 14:00:04 11/16/19 24 11/16/2023 CBC/C OMPLE TE BLD COUNT W/DIF F red cell distribution width 13.2 % 11.8-1 5.5 Not Available [facility] (Lab) [address] [place], [address], 11/16/2023 14:00:04 11/16/19 24 11/16/2023 CBC/C OMPLE TE BLD COUNT W/DIF F platelets 225 x10'3 /uL 150-40 0 Not Available [facility] (Lab) [address] [place], [address], 11/16/2023 14:00:04 11/16/19 24 11/16/2023 CBC/C OMPLE TE BLD COUNT W/DIF F mean platelet volume 11.2 fL 9.0-12 .4 Not Available [facility] (Lab) [address] [place], [address], 11/16/2023 14:00:04 11/16/19 24 11/16/2023 CBC/C OMPLE TE BLD COUNT W/DIF F neutrophils 61.8 % 39.0-7 2.0 Not Available [facility] (Lab) [address] [place], [address], 11/16/2023 14:00:04 11/16/19 24 11/16/2023 CBC/C OMPLE TE BLD COUNT W/DIF F lymphocytes 28.4 % 16.0-4 7.0 Not Available [facility] (Lab) [address] [place], [address], 11/16/2023 14:00:04 11/16/19 24 11/16/2023 CBC/C OMPLE TE BLD COUNT W/DIF F monocytes 6.8 % 5.0-12 .0 Not Available [facility] (Lab) [address] [place], [address], 11/16/2023 14:00:04 11/16/19 24 11/16/2023 CBC/C OMPLE TE BLD COUNT W/DIF F eosinophils 2.1 % 1.0-7. 0 Not Available [facility] (Lab) [address] [place], [address], 11/16/2023 14:00:04 11/16/19 24 11/16/2023 CBC/C OMPLE TE BLD COUNT W/DIF F basophils 0.7 % 0.0-2. 0 Not Available [facility] (Lab) [address] [place], [address], 11/16/2023 14:00:04 11/16/19 24 11/16/2023 CBC/C OMPLE TE BLD COUNT W/DIF F immature granulocytes 0.2 % 0.00-0 .50 Not Available [facility] (Lab) [address] [place], [address], 11/16/2023 14:00:04 11/16/19 24 11/16/2023 CBC/C OMPLE TE BLD COUNT W/DIF F neutrophils, absolute count 5.94 x10'3 /uL 1.5-8. 0 Not Available [facility] (Lab) [address] [place], [address], 11/16/2023 14:00:04 11/16/19 24 11/16/2023 CBC/C OMPLE TE BLD COUNT W/DIF F lymphocytes, absolute count 2.73 x10'3 /uL 1.07-3 .43 Not Available [facility] (Lab) [address] [place], [address], 11/16/2023 14:00:04 11/16/19 24 11/16/2023 CBC/C OMPLE TE BLD COUNT W/DIF F monocytes, absolute count 0.65 x10'3 /uL 0.29-0 .99 Not Available [facility] (Lab) [address] [place], [address], 11/16/2023 14:00:04 11/16/19 24 11/16/2023 CBC/C OMPLE TE BLD COUNT W/DIF F eosinophils, absolute count 0.20 x10'3 /uL 0.02-0 .53 Not Available [facility] (Lab) [address] [place], [address], 11/16/2023 14:00:04 11/16/19 24 11/16/2023 CBC/C OMPLE TE BLD COUNT W/DIF F basophils, absolute count 0.07 x10'3 /uL 0.01-0 .08 Not Available [facility] (Lab) [address] [place], [address], 11/16/2023 14:00:04 11/16/19 24 11/16/2023 CBC/C OMPLE TE BLD COUNT W/DIF F immature granulocytes ,absolute 0.02 x10'3 /uL 0.00-0 .05 Not Available [facility] (Lab) [address] [place], [address], 11/16/2023 14:00:04 11/16/19 24 11/16/2023 CBC/C OMPLE TE BLD COUNT W/DIF F nucleated red blood cells 0.0 % -0 Not Available [facility] (Lab) [address] [place], [address], 11/16/2023 14:00:04 11/16/19 24 11/16/2023 CBC/C OMPLE TE BLD COUNT W/DIF F NRBC# 0.00 x10'3 /uL Not Available [facility] (Lab) [address] [place], [address], 11/16/2023 14:00:04 11/16/19 24 11/16/2023 LIPID PANEL cholesterol 99 mg/dL 140-19 9 low NIH AMISHA NSUS RECOM MENDA TION FOR CHRISTI STERO L: ADULT CHILD LOW RISK: <200 <170 BORDE RLINE : <200- 239 ----- HIGH RISK: >240 >200 Not Available [facility] (Lab) [address] [place], [address], 11/16/2023 14:14:17 11/16/19 24 11/16/2023 LIPID PANEL triglyceride s 147 mg/dL 0-150 NIH AMISHA NSUS REPOR T RECOM MENDA TION FOR TRIGL YCERI MAX: ADULT CHILD LOW RISK: <150 ----- BODER LINE: 150-1 99 ----- HIGH RISK: >200 ----- Not Available [facility] (Lab) [address] [place], [address], 11/16/2023 14:14:17 11/16/19 24 11/16/2023 LIPID PANEL HDL cholesterol 46 mg/dL 40- Not Available [facility] (Lab) [address] [place], [address], 11/16/2023 14:14:17 11/16/19 24 11/16/2023 LIPID PANEL LDL cholesterol, calculated 24 mg/dL 0-130 NIH AMISHA NSUS REPOR T RECOM MENDA TIONS FOR LDL: ADULT CHILD LOW RISK <130 <110 (OPTI MAL LDL) <100 ----- BORDE RLINE : 130-1 59 ----- HIGH RISK: >160 >130 A TRIGL YCERI DE RESUL T >400 INVAL IDATE S THE CALCU LATIO N FOR LDL FRACT IONAT ION - THE LDL RESUL T WILL NOT BE REPOR JORGE. Not Available [facility] (Lab) [address] [place], [address], 11/16/2023 14:14:17 11/16/19 24 11/16/2023 COMPR EHENS DENISE METAB OLIC PANEL sodium 140 mmol/ L 137-14 5 Not Available [facility] (Lab) [address] [place], [address], 11/16/2023 14:14:23 11/16/19 24 11/16/2023 COMPR EHENS DENISE METAB OLIC PANEL potassium 4.3 mmol/ L 3.5-5. 1 Not Available [facility] (Lab) [address] [place], [address], 11/16/2023 14:14:23 11/16/19 24 11/16/2023 COMPR EHENS DENISE METAB OLIC PANEL chloride 106 mmol/ L 98-107 Not Available [facility] (Lab) [address] [place], [address], 11/16/2023 14:14:23 11/16/19 24 11/16/2023 COMPR EHENS DENISE METAB OLIC PANEL carbon dioxide 31 mmol/ L 22-30 high Not Available [facility] (Lab) [address] [place], [address], 11/16/2023 14:14:23 11/16/19 24 11/16/2023 COMPR EHENS DENISE METAB OLIC PANEL anion gap 7.3 mmol/ L 14-22 low Not Available [facility] (Lab) [address] [place], [address], 11/16/2023 14:14:23 11/16/19 24 11/16/2023 COMPR EHENS DENISE METAB OLIC PANEL glucose 151 mg/dL 70-99 high Not Available [facility] (Lab) [address] [place], [address], 11/16/2023 14:14:23 11/16/19 24 11/16/2023 COMPR EHENS DENISE METAB OLIC PANEL BUN 16 mg/dL 8-19 Not Available [facility] (Lab) [address] [place], [address], 11/16/2023 14:14:23 11/16/19 24 11/16/2023 COMPR EHENS DENISE METAB OLIC PANEL creatinine 0.74 mg/dL 0.66-1 .25 Not Available [facility] (Lab) [address] [facility] [place], [address], 11/16/2023 14:14:23 11/16/19 24 11/16/2023 COMPR EHENS DENISE METAB OLIC PANEL GFR >60 Refer ence Range : [place] ge GFR Healt hy Adult : >60 mL/mi n/1.7 3 m2 Chron ic Kidne y Disea se: 15-60 mL/mi n/1.7 3 m2 Kidne y Failu re: <15/m L/min /1.73 m2 www.n iddk. nih.g ov The MDRD study equat ion has not been valid ated in child arlin <18 years of age; pregn ant women ; the elder ly >85 years of age; or in some racia l or ethni c subgr oups, such as [facility] nics. Outsi de the valid ated shannan eters , estim ated GFR is less accur ate, requi ring clini yony judgm ent on a case- by-ca se basis . Clini yony inter preta tion for other races and ages must be made by the clini william. The MDRD study equat ion has not been valid ated for the evalu ation of serum creat inine relat ed to nutri nitin l statu s or medic ation usage . For perso ns <18 years of age, a pedia tric GFR calcu lator is avail able on the [facility] websi te: https ://misty w.tez valerio.o rg/pr ofess ional s/kdo qi/gf r_cal culat or Not Available [facility] (Lab) [address] [place], [address], 11/16/2023 14:14:23 11/16/19 24 11/16/2023 COMPR EHENS DENISE METAB OLIC PANEL alkaline phosphatase 99 U/L 38-126 Not Available [facility] (Lab) [address] [place], [address], 11/16/2023 14:14:23 11/16/19 24 11/16/2023 COMPR EHENS DENISE METAB OLIC PANEL alanine aminotransfe rase 33 U/L 0-35 Not Available [facility] (Lab) [address] [place], [address], 11/16/2023 14:14:23 11/16/19 24 11/16/2023 COMPR EHENS DENISE METAB OLIC PANEL aspartate aminotransfe rase 37 U/L 15-37 Not Available [facility] (Lab) [address] [place], [address], 11/16/2023 14:14:23 11/16/19 24 11/16/2023 COMPR EHENS DENISE METAB OLIC PANEL bilirubin, total 1.40 mg/dL 0.20-1 .30 high Not Available [facility] (Lab) [address] [place], [address], 11/16/2023 14:14:23 11/16/19 24 11/16/2023 COMPR EHENS DENISE METAB OLIC PANEL calcium 10.3 mg/dL 8.4-10 .2 high Not Available [facility] (Lab) [address] [place], [address], 11/16/2023 14:14:23 11/16/19 24 11/16/2023 COMPR EHENS DENISE METAB OLIC PANEL total protein 6.8 g/dL 6.3-8. 2 Not Available [facility] (Lab) [address] [place], [address], 11/16/2023 14:14:23 11/16/19 24 11/16/2023 COMPR EHENS DENISE METAB OLIC PANEL albumin 4.2 g/dL 3.0-4. 4 Not Available [facility] (Lab) [address] [place], [address], 11/16/2023 14:14:23 11/16/19 24 11/16/2023 COMPR EHENS DENISE METAB OLIC PANEL globulin 2.6 g/dL 2.6-4. 2 Not Available [facility] (Lab) [address] [place], [address], 11/16/2023 14:14:23 11/16/19 24 11/16/2023 COMPR EHENS DENISE METAB OLIC PANEL A/G ratio 1.6 ratio 1.0-2. 0 Not Available [facility] (Lab) [address] [place], [address], 11/16/2023 14:14:23 11/16/19 24 11/16/2023 MICRO ALBUM IN RANDO M URINE microalbumin , urine 7.8 mg/L 0.0-16 .6 Not Available [facility] (Lab) [address] [place], [address], 11/16/2023 14:33:14 11/16/19 24 11/16/2023 VITAM IN D 25-HY DROXY vd25oh 54.5 NG/mL 30-100 Vitam in D Statu s: Defic ient: <20 ng/mL Insuf ficie nt: 20-29 ng/mL Suffi cient : 30-10 0 ng/mL Not Available [facility] (Lab) [address] [place], [address], 11/16/2023 14:37:42 11/16/19 24 11/16/2023 TSH W/REF EFRAIN FT4 TSH with reflex free T4 1.410 uIU/m L 0.465- 4.680 Not Available [facility] (Lab) [address] [place], [address], 11/16/2023 14:50:12 11/16/19 24 11/16/2023 VITAM IN B12 (ANDREA JAMAL ) vb12 714 pg/mL 239-93 1 Not Available [facility] (Lab) [address] [place], [address], 11/16/2023 15:30:00 11/16/19 24 11/16/2023 FOLAT E, SERUM /PLAS MA folate >20.0 NG/mL 2.76-2 0.0 Not Available [facility] (Lab) [address] [place], [address], 11/16/2023 15:30:06 11/16/19 24 11/16/2023 HEMOG LOBIN A1C HA1C 6.4 % 4.0-6. 0 high Diabe rachel Scree aubree Crite nicky: <5.7% Consi stent with absen ce of diabe rachel 5.7-6 .4% Consi stent with incre ased risk for diabe rachel (pred iabet es) >OR=6 .5% Consi stent with diabe rachel REFER ENCE: Diabe rachel Care 2016, 39([place] ppl.1 ):s13 -s22 Not Available [facility] (Lab) [address] [place], [address], 11/16/2023 21:41:34 12/12/19 24 12/12/2023 US, abdom en, limit ed [facility] [place] [address] [place] [address] Patien t Name: SHIRLEY JENKINS Access ion #: [id number] Sex: F : 1959 5 Dictat ed By: Destiny De La Rosa Attend ing Physic mala: NABIL FARLEY IT Orderi ng Physic mala: YOANNA OCONNELL Exam Date: 2023 08:49 AM Exam Name: US ABDOME N SINGLE ORGAN Admitt ing Diagno sis(es ): INDICA TION: steato sis of liver TECHNI QUE: Multip le real-t umu sonogr aphic images were obtain ed of the right upper quadra nt. COMPAR ROGER: US ABDOME N SINGLE ORGAN on 2021 FINDIN GS: The liver demons trates increa sed echote xture withou t focal mass lesion s. The liver measur es 20 cm and is enlarg ed. There is no intrah epatic or extrah epatic ductal dilata tion. The common duct measur es 4 mm. Gallbl adder is surgic ally absent . The right kidney measur es 10.8 cm. The right kidney is normal in contou r, size, and shape. The echoge nicity is normal . There is no hydron ephros is. The pancre as is not well visual ized due to overly ing bowel gas. IMPRES BROCK: 1. Status post cholec ystect tarun. 2. Hepati c steato sis and hepato megaly . Electr onical ly Signed by: Destiny De La Rosa at 2023 10:51: 01 AM Page 1 [email or web address] [facility] (Imaging) [address] [place], [address], 01/18/2024 16:04:34 Result Notes None recorded. Problems Name Problem SNOMED Code Status Onset Date Resolution Date Notes Provider Name and Address Organization Details Recorded Time Deviated nasal septum 598711883 Active 2019 Not Available [employer] 4 11:45:08 Localized, primary osteoarthr itis of the shoulder region 110039712 Active Not Available [facility] 4 11:45:08 Osteoarthr itis of right knee joint 4720601118303 00 Active 2021 Not Available [facility] 4 11:45:08 Closed fracture of lateral malleolus 04698604 Active 2018 Not Available [facility] 4 11:45:08 Hypertensi ve disorder 76269817 Active 2019 Not Available [facility] 4 11:45:08 Neuropathy 727562013 Active 2016 Not Available [facility] 4 11:45:08 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 864218223 Active 2019 Not Available [facility] 4 11:45:08 Closed fracture of base of fifth metatarsal bone 239271450 Active 2018 Not Available [facility] 4 11:45:08 Herpes zoster 9066597 Active Not Available [facility] 4 11:45:08 Hyperlipid emia 00746831 Active 2019 Not Available [facility] 4 11:45:08 Diabetes mellitus 08709972 Active Not Available [facility] 4 11:45:08 Obstructiv e sleep apnea syndrome 49797786 Active 2019 Not Available [facility] 4 11:45:08 Moderate recurrent major depression 99673223 Active 2022 Not Available [facility] 4 11:45:08 Environmen juan allergy 078613903 Active 2022 Not Available [facility] 4 11:45:08 Vitamin D deficiency 22336638 Active 2022 Not Available [facility] 4 11:45:08 Morbid obesity 980869900 Active 2022 Not Available [facility] 4 11:45:08 Periodic limb movement disorder 904266533 Active 2023 Not Available [facility] 4 11:45:08 Hemochroma tosis 292851917 Active 2023 Jan Jeffries MD [address], [place], [address] , [employer] [facility] [employer] 4 14:13:04 Malignant tumor of breast 128156422 Active 2023 Callie elizabeth MD [address], [place], [address] , [facility] [employer] 4 18:14:46 Chronic kidney disease 865961853 Active 2023 Callie elizabeth MD [address], [address], [address] , [facility] [employer] [facility] 4 18:14:47 Liver enzymes level above reference range 557213907 Active 2023 Callie elizabeth MD [address], [address], [address] , [facility] [employer] [facility] [employer] [facility] 4 18:14:47 Serum vitamin B12 below reference range 354999150 Active 2023 Callie elizabeth MD [address], [place] [address], [place], [address] , [facility] [employer] [facility] 4 18:14:47 Hyperbilir ubinemia 90962384 Active 2023 Callie elizabeth MD [address], [address], [address] , [facility] [employer] [facility] [employer] [facility] 4 12:58:09 Steatosis of liver 394025435 Active 2023 Callie elizabeth MD [address], [address], [address] , [facility] [employer] [facility] [employer] [facility] 4 12:58:54 Notes:Medical History: Depre ssion Rhinitis with postnasal drip Deviated nasal septum Delayed sleep phase syndrome Obesity with very severe OSAHS, AHI = 57, 12/12/19, on CPAP c/o Provider Plus Mild TR Hypertension EF 63% Hyperlipidemia T2DM with neuropathy Hepatic steatosis Hepatomegaly H63D homozygotic hemochromatosis PLMD Vit D deficiency Left 5th metatarsal fracture Left lateral malleolar fracture Thoracolumbar spondylosis Levoscoliosis Right shoulder OA Left knee OA Tinea pedis Herpes zoster Procedure History: C-sections 1986, 1989 Right mastectomy for right breast ca 2006 Left mastectomy 2007 Spinal cord stimulator placement 2023 Cholecystectomy 2014 Colonoscopy 2015 Right shoulder replacement 2020 Spinal cord stimulator placement 2023 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 Procedures Surgical History Date Name Laterality Status Provider Name and Address Organization Details Recorded Time 11/21/19 24 Advanced Care Planning completed Kiran Stephens LPN [employer] [employer] [facility] 11/21/2023 13:26:35 11/21/19 Medicare Wellness CPT Code, Initial completed Kiran Stephens LPN [employer] [employer] [facility] 11/16/2023 10:10:51 09/12/19 Medicare Wellness CPT Code, subsequent completed Laly Patel RN [facility] [employer] [facility] 09/11/2022 12:13:49 02/09/20 22 Eye Surgery completed Not Available [facility] 08/17/19 23 00:52:23 03/04/20 21 reverse prosthetic total arthroplasty of right shoulder completed Not Available [facility] 08/16/2022 00:52:23 02/12/20 21 total shoulder replacement completed Not Available [facility] 08/16/2022 00:52:23 02/12/20 21 prosthetic total arthroplasty of right shoulder completed Not Available [facility] 08/16/2022 00:52:23 08/23/19 19 Date of Last Pap Smear completed Not Available [facility] 08/16/2022 00:52:20 06/04/20 18 Most Recent Bone Density completed Not Available [facility] 08/16/2022 00:52:19 06/18/19 16 Back completed Not Available [facility] 00:52:23 excision of bilateral breasts completed Not Available [facility] 08/16/2022 00:52:23 Rotator cuff surgery completed Not Available [facility] 08/16/2022 00:52:23 repair of meniscus completed Not Available [facility] 08/16/2022 00:52:23 Gallbladder Surgery completed Not Available [facility] 08/16/2022 00:52:23 section completed Not Available [facility] 08/16/2022 00:52:23 Back Surgery completed Rochelle Matias MA [facility] [employer] [facility] 08/28/2023 14:10:49 Imaging Results Imaging Date Name Status LastModified by Organiz ation Details LastModified Time 12/12/2023 US, abdomen, limited completed [email or web address] [facility] ([facility]) [address] [facility], [place], [address], 01/18/2024 16:04:34 Procedure Notes None recorded. Medical Equipment None Reported. Allergies Allergen ID Allergen Name Allergen Category Reaction Reaction Severity Criticality Documentation Date Start Date Code Code System Note Provider Name and Address Organization Details Recorded Time 1672 Product containin g penicilli n and antibioti c (product) medicatio n hives Not available Not available 08/16/2022 52494 05 SNOMED Not Available [facility] 3 01:09:56 1674 clindamyc in Not available chest pain Not available Not available 08/16/2022 2582 RxNorm stoma ch issue s Not Available [facility] 3 01:09:56 80106 morphine medicatio n Not available Not available Not available 09/13/2022 7052 RxNorm Nusrat olmedo [place] [employer] [facility] 3 12:11:02 Medications Name Sig Start Date Stop Date Status Note LastModified by Organization Details LastModified Time Prescriptio n - Prior Authorizati on Request 03/19 completed Not Available Not Available Not Available carisoprodo l 350 mg tablet Take 1 tablet 3 times a day by oral route as needed. 11/21 completed Not Available Not Available Not Available cyclobenzap rine 10 mg tablet TAKE 1 TABLET BY MOUTH EVERY DAY NEEDED 02/27 completed Not Available Not Available Not Available fluconazole 100 mg tablet Take 1 tablet(s) every day by oral route 03/21 completed Not Available Not Available Not Available atorvastati n 40 mg tablet TK 1 T PO QD IN THE SHAWN 10/07 completed Not Available Not Available Not Available venlafaxine ER 37.5 mg capsule,ext ended release 24 hr TAKE 1 CAPSULE BY MOUTH EVERY DAY active Not Available Not Available No t Available venlafaxine ER 75 mg capsule,ext ended release 24 hr TAKE 1 CAPSULE BY MOUTH EVERY DAY 10/26 completed Not Available Not Available Not Available gabapentin 600 mg tablet TAKE 2 TABLETS BY MOUTH TWICE DAILY active Not Available Not Available No t Available tizanidine 2 mg tablet TAKE 1 TABLET BY MOUTH TWICE DAILY FOR 15 DAYS NEEDED 08/08 completed Not Available Not Available Not Available clindamycin HCl 300 mg capsule TK ONE C PO QID 09/30 completed Not Available Not Available Not Available Vicoprofen 7.5 mg-200 mg tablet Take 1 tablet 3 times a day by oral route for 10 days. 01/31 completed Not Available Not Available Not Available trazodone 50 mg tablet TK 1 T PO QHS PRF INSOMNIA 11/21 completed Not Available Not Available Not Available Humulin R U-500 (Concentrat ed) Insulin 500 unit/mL subcutaneou s soln INJECT UP TO 50 UNITS UNDER THE SKIN TWICE DAILY 02/01 completed Not Available Not Available Not Available Iron (ferrous sulfate) 325 mg (65 mg iron) tablet Take 1 tablet every day by oral route. 08/27 completed Not Available Not Available Not Available azithromyci n 250 mg tablet TAKE 2 TABLETS BY MOUTH 1 HOUR BEFORE DENTAL PROCEDURE 07/09 completed Not Available Not Available Not Available ofloxacin 0.3 % eye drops 09/11 completed Not Available Not Available Not Available tizanidine 4 mg tablet TK 1 T PO QD PRN 10/26 completed Not Available Not Available Not Available fluconazole 150 mg tablet TAKE 1 TABLET BY MOUTH DAILY 01/15 completed Not Available Not Available Not Available hydrocodone 5 mg-acetamin ophen 325 mg tablet TK 1 T PO TID PRN FOR 30 DAYS 10/07 completed Not Available Not Available Not Available Levaquin 750 mg tablet Take 1 tablet every day by oral route for 7 days. 09/11 completed Not Available Not Available Not Available bupivacaine HCl 0.5 % (5 mg/mL) injection solution Take 20 mL by injection route. 02/01 completed Not Available Not Available Not Available prednisone 20 mg tablet 02/01 completed Not Available Not Available Not Available clindamycin HCl 150 mg capsule TAKE 4 CAPSULES BY MOUTH 1 HOUR BEFORE DENTAL PROCEDURE 02/01 completed Not Available Not Available Not Available phentermine 37.5 mg tablet Take 1 tablet every day by oral route for 30 days. 02/18 completed Not Available Not Available Not Available acetaminoph en 300 mg-codeine 30 mg tablet 11/21 completed Not Available Not Available Not Available ciprofloxac in 500 mg tablet TK 1 T PO BID 11/21 completed Not Available Not Available Not Available sulfamethox azole 800 mg-trimetho prim 160 mg tablet TAKE 1 TABLET BY MOUTH TWICE DAILY FOR 7 DAYS 08/27 completed Not Available Not Available Not Available hydrocodone 10 mg-acetamin ophen 325 mg tablet 11/21 completed Not Available Not Available Not Available aspirin 81 mg tablet,chichi yed release TAKE 1 TABLET BY MOUTH TWICE DAILY FOR 14 DAYS 09/14 completed Not Available Not Available Not Available acetaminoph en 500 mg tablet TAKE 2 TABLETS BY MOUTH EVERY 6 HOURS NEEDED FOR PAIN 02/28 completed Not Available Not Available Not Available triamcinolo ne acetonide 0.1 % topical cream APPLY TOPICALLY TO THE AFFECTED AREA TWICE DAILY 06/15 completed Not Available Not Available Not Available cefazolin 10 gram solution for injection 11/21 completed Not Available Not Available Not Available acyclovir 800 mg tablet Take 1 tablet 5 times a day by oral route for 10 days. 11/24 completed Not Available Not Available Not Available ketorolac 0.5 % eye drops 09/11 completed Not Available Not Available Not Available meloxicam 7.5 mg tablet TK 1 T PO BID 07/03 completed Not Available Not Available Not Available oxycodone-a cetaminophe n 5 mg-325 mg tablet TK 1 T PO Q 4 TO 6 H PRN 11/21 completed Not Available Not Available Not Available prednisolon e acetate 1 % eye drops,suspe nsion 09/11 completed Not Available Not Available Not Available methocarbam ol 750 mg tablet TAKE 1 TABLET BY MOUTH THREE TIMES DAILY 07/23 completed Not Available Not Available Not Available Humalog U-100 Insulin 100 unit/mL subcutaneou s solution INJECT UP TO 80 UNITS VIA PUMP EVERY DAY active Not Available Not Available No t Available Kenalog 10 mg/mL suspension for injection in office 07/23 completed ND: [id number] Not Available Not Available Not Available dexamethaso ne 1 mg tablet TK 1 T PO AT 10 PM NIGHT BEFORE 8 AM CORTISOL 07/09 completed Not Available Not Available Not Available hydrocodone 7.5 mg-acetamin ophen 325 mg tablet TK 1 T PO TID PRN FOR 30 DAYS 10/15 completed Not Available Not Available Not Available cephalexin 500 mg capsule TAKE 1 CAPSULE BY MOUTH TWICE DAILY UNTIL ALL TAKEN 08/27 completed Not Available Not Available Not Available pantoprazol e 40 mg tablet,chichi yed release TAKE 1 TABLET BY MOUTH EVERY DAY 02/01 completed Not Available Not Available Not Available nystatin 100,000 unit/gram topical cream SID EXT AA BID 04/24 completed Not Available Not Available Not Available hydrocodone 7.5 mg-acetamin ophen 750 mg tablet 11/21 completed Not Available Not Available Not Available glimepiride 4 mg tablet TAKE 1 TABLET BY MOUTH TWICE DAILY 07/27 completed Not Available Not Available Not Available misoprostol 200 mcg tablet Take 2 tablets by oral route at bedtime for 1 day. 10/07 completed Not Available Not Available Not Available losartan 25 mg tablet TAKE 1 TABLET BY MOUTH EVERY DAY active Not Available Not Available No t Available metoprolol tartrate 50 mg tablet TAKE 1 TABLET BY MOUTH TWICE DAILY active Not Available Not Available No t Available docusate sodium 100 mg capsule TAKE 1 CAPSULE BY MOUTH TWICE DAILY 02/28 completed Not Available Not Available Not Available gabapentin 300 mg capsule TAKE 3 CAPSULES BY MOUTH TWICE DAILY 03/12 completed Not Available Not Available Not Available Cataflam 50 mg tablet Take 1 tablet 3 times a day by oral route for 10 days. 11/27 completed Not Available Not Available Not Available montelukast 10 mg tablet TK 1 T PO QD 10/04 completed Not Available Not Available Not Available morphine ER 15 mg tablet,exte nded release TK 1 T PO Q 12 H 09/30 completed Not Available Not Available Not Available ergocalcife rol (vitamin D2) 1,250 mcg (50,000 unit) capsule TAKE ONE CAPSULE BY MOUTH ONE DAY A WEEK active Not Available Not Available No t Available clobetasol 0.05 % topical ointment 02/01 completed Not Available Not Available Not Available Novolog U-100 Insulin aspart 100 unit/mL subcutaneou s solution inject 100 units per insulin pump daily 02/28 completed Not Available Not Available Not Available ibuprofen 600 mg tablet 02/01 completed Not Available Not Available Not Available oxycodone-a cetaminophe n 7.5 mg-325 mg tablet TK 1 T PO Q 6 H PRN 09/22 completed Not Available Not Available Not Available letrozole 2.5 mg tablet 11/21 completed Not Available Not Available Not Available methylpredn isolone 4 mg tablets in a dose pack FOLLOW PACKAGE DIRECTION S 01/15 completed Not Available Not Available Not Available ketoconazol e 2 % topical cream APPLY EXTERNALL Y TO THE AFFECTED AREA ONCE DAILY 08/07 completed Not Available Not Available Not Available ondansetron 4 mg disintegrat ing tablet prn 06/01 completed Not Available Not Available Not Available fluticasone propionate 50 mcg/actuati on nasal spray,suspe nsion SHAKE LQ AND U 1 SPR IEN QD 06/07 completed Not Available Not Available Not Available colestipol 1 gram tablet TK 2 TS PO BID B MEALS 08/22 completed Not Available Not Available Not Available doxepin 5 % topical cream 05/08 completed Not Available Not Available Not Available calcitriol 0.25 mcg capsule TAKE 1 CAPSULE BY MOUTH TWICE DAILY active Not Available Not Available No t Available naproxen 500 mg tablet 12/06 completed Not Available Not Available Not Available metoclopram russ 10 mg tablet TK 1 T PO TID Q AC PRN 11/21 completed Not Available Not Available Not Available tobramycin 0.3 %-dexametha sone 0.1 % eye drops,suspe nsion SHAKE LIQUID AND INSTILL 1 DROP IN LEFT EYE FOUR TIMES DAILY. START DROPS AFTER SURGERY 05/03 completed Not Available Not Available Not Available oxycodone 5 mg tablet 02/28 completed Not Available Not Available Not Available olmesartan 5 mg tablet TK 2 TS PO ONCE D 06/07 completed Not Available Not Available Not Available olmesartan 40 mg-hydrochl orothiazide 12.5 mg tablet TAKE 1 TABLET BY MOUTH DAILY 09/22 completed Not Available Not Available Not Available rosuvastati n 20 mg tablet TAKE 1 TABLET BY MOUTH DAILY active Not Available Not Available No t Available Cinnamon 500 mg capsule Take 2 capsules every day by oral route. 03/21 completed Not Available Not Available Not Available BD Ultra-Fine Mini Pen Needle 31 gauge x 3/16 UTD BID 08/17 completed Not Available Not Available Not Available fenofibrate 160 mg tablet TK 1 T PO QD HS 08/17 completed Not Available Not Available Not Available chlorhexidi ne gluconate 0.12 % mouthwash 11/20 completed Not Available Not Available Not Available Vitamin C TK 1T PO QD-OTC 10/22 completed Not Available Not Available Not Available cranberry 08/27 completed Not Available Not Available Not Available iron 65mg(325m g a day) 1 tab daily 08/07 completed Not Available Not Available Not Available Revia 1.5 11/21 completed Not Available Not Available Not Available Zyrtec 10 mg 1 tab daily 06/01 completed Not Available Not Available Not Available OneTouch Ultra2 Meter kit U UTD 08/17 completed Not Available Not Available Not Available lidocaine (PF) 10 mg/mL (1 %) injection solution In office injection administe red by the provider 10/04 completed Not Available Not Available Not Available Janumet 50 mg-1,000 mg tablet TAKE 1 TABLET BY MOUTH TWICE DAILY 09/16 completed Not Available Not Available Not Available Lantus Solostar U-100 Insulin 100 unit/mL (3 mL) subcutaneou s pen INJ 96 UNITS SC QAM 04/30 completed Not Available Not Available Not Available Humalog Mix 75-25 KwikPen 11/01 completed Not Available Not Available Not Available fenofibrate 54 mg tablet TK 1 T PO QD IN THE SHAWN 04/24 completed Not Available Not Available Not Available GaviLyte-G 236 gram-22.74 gram-6.74 gram-5.86 gram oral solution 11/21 completed Not Available Not Available Not Available Zyrtec 10 mg capsule Take by oral route. 2020 active Not Available Not Available Not Avai lable Probiotic 08/08 completed Not Available Not Available Not Available Osteo Bi-Flex Take one capsule daily 03/21 completed Not Available Not Available Not Available ropivacaine (PF) 5 mg/mL (0.5 %) injection solution in office 07/23 completed Not Available Not Available Not Available Nucynta ER 100 mg tablet,exte nded release 08/22 completed Not Available Not Available Not Available Nucynta ER 50 mg tablet,exte nded release TK 1 T PO Q 12 H FOR 30 DAYS 05/30 completed Not Available Not Available Not Available One-A-Day Womens Formula 18 mg iron-400 mcg-500 mg Ca tablet Take 1 tablet every day by oral route. 12/02 completed Not Available Not Available Not Available OneTouch Verio test strips TEST FOUR TIMES DAILY BEFORE MEALS 08/17 completed Not Available Not Available Not Available lutein 20 mg tablet Take by oral route. 11/01 completed Not Available Not Available Not Available lutein 25 mg-zeaxanth in 5 mg capsule Take 1 capsule every day by oral route. 03/21 completed Not Available Not Available Not Available PreviDent 5000 Booster Plus 1.1 % dental paste 12/02 completed Not Available Not Available Not Available Farxiga 10 mg tablet TAKE 1 TABLET BY MOUTH EVERY DAY 07/03 completed Not Available Not Available Not Available Caltrate Take two tablets daily 12/02 completed Not Available Not Available Not Available Jardiance 25 mg tablet TAKE 1 TABLET BY MOUTH EVERY DAY active Not Available Not Available No t Available OneTouch Verio Meter U UTD TO TEST SUGARS QID 08/17 completed Not Available Not Available Not Available Humulin R U-500 (Conc) Insulin Kwikpen 500 unit/mL (3 mL) subcutaneou s ADM 110 UNI SC BID B MEALS 09/22 completed Not Available Not Available Not Available insulin lispro (U-100) 100 unit/mL subcutaneou s half-unit pen ADMINISTE R 100 UNITS VIA PUMP EVERY DAY 11/21 completed Not Available Not Available Not Available Ozempic 0.25 mg or 0.5 mg (2 mg/1.5 mL) subcutaneou s pen injector INJECT 0.5 MG UNDER THE SKIN EVERY WEEK IN THE MORNING 04/24 completed Not Available Not Available Not Available lutein 20 mg-zeaxanth in 1,000 mcg capsule Take by oral route. 08/07 completed Not Available Not Available Not Available Omnipod Dash Pods (Gen 4) subcutaneou s cartridge USE EVERY 3 DAYS DIRECTED 06/15 completed Not Available Not Available Not Available OneTouch Delica Plus Lancet 33 gauge TEST QID DIRECTED 08/07 completed Not Available Not Available Not Available Gvoke HypoPen 2-Pack 1 mg/0.2 mL subcutaneou s auto-inject or Inject 1 mg as needed by subcutane ous route as needed for 1 day. 08/08 completed Not Available Not Available Not Available Ozempic 1 mg/dose (4 mg/3 mL) subcutaneou s pen injector INJECT 1 MG UNDER THE SKIN EVERY WEEK AT DINNER 04/24 completed Not Available Not Available Not Available BinaxNOW COVID-19 Ag Self Test kit TEST DIRECTED TODAY 07/09 completed Not Available Not Available Not Available lutein 20 mg-zeaxanth in 1 mg-bilberry fruit extract 2.2 mg capsule Take by oral route. active Not Available Not Available No t Available cranberry conc 250 mg-vit C 30 mg-Bacillus coagulans 3.5 mg tablet Take by oral route. 08/08 completed Not Available Not Available Not Available Mounjaro 7.5 mg/0.5 mL subcutaneou s pen injector Inject 7.5 mg every week by subcutane ous route at dinner for 90 days. 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 06/15 completed Not Available Not Available Not Available Dexcom G7 Sensor device CHANGE SENSOR EVERY 10 DAYS 06/15 completed Not Available Not Available Not Available Vitals Date Recorded Body height Body mass index (BMI) Body weight Body temperature Heart rate Oxygen saturation Oxygen saturation in Arterial blood by Pulse oximetry Systolic blood pressure Diastolic blood pressure Provider Name and Address Organization Details Last Updated DateTime 4 157.48 cm 40.1 kg/m2 56221.1 7 g 98.3 [degF] 92 /min 95 % 95 % 110 mm[Hg] 72 mm[Hg] Rochelle Matias MA [employer] [employer] [facility] 4 14:08:05 Date Recorded Heart rate Respiratory rate Provider N alfonzo and Address Organization Details Last Updated DateTime 08/28/2023 92 /min 14 /min Jan Jeffries MD [address] [place] [address], [id number], [facility] 08/28/2023 14:22:19 Date Recorded Body height Body mass index (BMI) Body weight Body temperature Heart rate Oxygen saturation Oxygen saturation in Arterial blood by Pulse oximetry Pain severity - 0-10 verbal numeric rating [Score] - Reported Systolic blood pressure Diastolic blood pressure Provider Name and Address Organization Details Last Updated DateTime 4 157.48 cm 39.3 kg/m2 52587.3 6 g 97.1 [degF] 90 /min 96 % 96 % 3 110 mm[Hg] 66 mm[Hg] Rochelle Matias MA [facility] 4 12:25:22 Date Recorded Body height Body mass index (BMI) Body weight Body temperature Heart rate Systolic blood pressure Diastolic blood pressure Provider Name and Address Organization Details Last Updated DateTime 4 157.48 cm 38.6 kg/m2 41592.9 9 g 97.2 [degF] 72 /min 110 mm[Hg] 60 mm[Hg] ALVARO Webster [facility] [employer] [facility] 4 11:23:54 Date Recorded Body height Body mass index (BMI) Body weight Body temperature Heart rate Oxygen saturation Oxygen saturation in Arterial blood by Pulse oximetry Systolic blood pressure Diastolic blood pressure Provider Name and Address Organization Details Last Updated DateTime 4 157.48 cm 38.8 kg/m2 30627.5 8 g 98.2 [degF] 81 /min 98 % 98 % 110 mm[Hg] 62 mm[Hg] Berta Garzon MA [employer] 4 14:39:59 Date Recorded Body height Body mass index (BMI) Body weight Body temperature Heart rate Systolic blood pressure Diastolic blood pressure Provider Name and Address Organization Details Last Updated DateTime 5 157.48 cm 38.8 kg/m2 32926.5 8 g 98.1 [degF] 81 /min 110 mm[Hg] 66 mm[Hg] Berta Garzon MA [facility] 5 10:42:41 Date Recorded Oxygen saturation Oxygen saturation in Arterial blood by Pulse oximetry Heart rate Respiratory rate Provider Name and Address Organization Details Last Updated DateTime 07/15/2024 95 % 95 % 81 /min 15 /min Jan Jeffries MD [address] [facility], [facility] [address], [place], [phone], [facility] [employer] [facility] 5 10:53:33 Social History Question Answer Notes LastModified by Organization Details LastModified Time Tobacco Smoking Status Never Smoker Randa Bob null, [facility] [employer] [facility] 05/03/2023 11:24:02 Do You Have An Advance Directive? No Information Provided [email or web address] Information not available 11/21/2023 What Is Your Level Of Alcohol Consumption? None [email or web address] Information not available 09/11/2022 Do You Wear A Helmet When Biking? No DOES NOT BIKE Information not available 11/21/2023 Are You Blind Or Do You Have Difficulty Seeing? No [email or web address] Information not available 11/21/2023 What Is Your Level Of Caffeine Consumption? Occasional Chocolate Occasionally [email or web address] Information not available 09/13/2022 How Much Tobacco Do You Chew? None [id number] Information not available 08/16/2022 In The 14 Days Before Symptom Onset, Have You Had Close Contact With A Laboratory-conf irmed COVID-19 While That Case Was Ill? No Information not available 05/03/2023 In The 14 Days Before Symptom Onset, Have You Had Close Contact With A Person Who Is Under Investigation For COVID-19 While That Person Was Ill? No [email or web address] Information not available 05/03/2023 Are You Currently Employed? No [email or web address] Information not available 08/08/2023 Are You Deaf Or Do You Have Serious Difficulty Hearing? No [email or web address] Information not available 11/21/2023 What Type Of Diet Are You Following? REGULAR [email or web address] Information not available 11/21/2023 Which Illicit Or Recreational Drugs Have You Used? None [email or web address] Information not available 05/03/2023 Do You Or Have You Ever Used E-cigarettes Or Vape? Never Used Electronic Cigarettes [email or web address] Information not available 05/03/2023 What Is The Highest Grade Or Level Of School You Have Completed Or The Highest Degree You Have Received? [id number] [email or web address] Information not available 05/03/2023 Do You Have An Electrostatic Air Filter? 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 0 [email or web address] Information not available 11/21/2023 Have There Been Any Changes To Your Family Or Social Situation? No [email or web address] Information not available 05/03/2023 What Is The Fluoride Status Of Your Home? Fluoridated [email or web address] Information not available 05/03/2023 Are There Any Guns Present In Your Home? Yes Locked Up [email or web address] Information not available 05/03/2023 Do You Have A Humidifier? No [email or web address] Information not available 05/03/2023 Do You Use Insect Repellent Routinely? Yes [email or web address] Information not available 11/21/2023 Where [facility] You Live? [facility] [email or web address] Information not available 05/03/2023 Presence Of Domestic Violence No [email or web address] Information not available 11/21/2023 Guns Present In The Home? Yes Locked Up [email or web address] Information not available 09/11/2022 Are You Able To Care For Yourself? Yes Information not available 09/11/2022 Are You Blind Or Do Yo Have Difficulty Seeing? No Information not available 09/11/2022 Are You Deaf Or Do You Have Serious Difficulty Hearing? No [email or web address] Information not available 09/11/2022 General Stress Level? Low [email or web address] Information not available 11/21/2023 Live Alone Of With Others? With Others [email or web address] Information not available 09/11/2022 Do You Have A Medical Power Of Sales Account Executive? No Information not available 05/03/2023 Do You Have Moisture Problems In Your Home? No [email or web address] Information not available 05/03/2023 What Was The Date Of Your Most Recent Tobacco Screening? 07/15/2024 [email or web address] Information not available 07/15/2024 How Many Children Do You Have? 2 [email or web address] Information not available 11/21/2023 Have You Ever Been Counseled For Unhealthy Alcohol Use? No [email or web address] Information not available 05/03/2023 Do You Have Any Pets? Yes 2 Dogs [email or web address] Information not available 11/21/2023 What Is Your Relationship Status? [id number] Information not available 08/16/2022 Do You Use Your Seat Belt Or Car Seat Routinely? Yes [email or web address] Information not available 05/03/2023 Do You Have Smoke And Carbon Monoxide Detectors In Your Home? Yes Information not available 05/03/2023 Are You Passively Exposed To Smoke? No Information not available 11/21/2023 Do You Or Have You Ever Used Smokeless Tobacco? Never Used Smokeless Tobacco [id number] Information not available 08/16/2022 Are There Any Smokers In Your House? No [email or web address] Information not available 05/03/2023 What Types Of Sporting Activities Do You Participate In? None [email or web address] Information not available 11/21/2023 Do You Feel Stressed (tense, Restless, Nervous, Or Anxious, Or Unable To Sleep At Night)? [id number] [email or web address] Information not available 05/03/2023 Do You Use Any Illicit Or Recreational Drugs? No [email or web address] Information not available 05/03/2023 Do You Use Sunscreen Routinely? Yes [email or web address] Information not available 05/03/2023 Has Tobacco Cessation Counseling Been Provided? No N/A [email or web address] Information not available 05/03/2023 Have You Recently Traveled Abroad? No [email or web address] Information not available 05/03/2023 Do You Have Any Dietary Restrictions? No Sugar [email or web address] Information not available 11/21/2023 Do You Or Have You Ever Used Any Other Forms Of Tobacco Or Nicotine? No [email or web address] Information not available 05/03/2023 Sex: Female Functional Status Question Answer Note LastModified by Organizat ion Details LastModified Time Do you have difficulty walking or climbing stairs? Yes Has spinal cord stimulator [email or web address] Information not available 11/21/2023 Do you have transportation difficulties? No [email or web address] Information not available 11/21/2023 Are you able to walk? YESWOREST [email or web address] Information not available 11/21/2023 Do you have difficulty doing errands alone? No [email or web address] Information not available 11/21/2023 Are you able to care for yourself? Yes [email or web address] Information not available 11/21/2023 Do you have difficulty dressing or bathing? No [email or web address] Information not available 11/21/2023 What is your exercise level? None has alot of back pain [email or web address] Information not available 09/11/2022 Mental Status Question Answer Note LastModified by Organization D etails LastModified Time Do you have difficulty concentrating, remembering or making decisions? No Information no t available 11/21/2023 Family History Relationship Description Onset Age of this Age Resolved Age Notes LastModified by Organization Details LastModified Time Father Heart disease [email or web address] Not available 2023 11:14:52 Father Obstructive sleep apnea syndrome [email or web address] Not available 06/19 10:12:23 Father Chronic obstructive pulmonary disease [email or web address] Not available 06/19 10:12:23 Father Hypertensive disorder [id number] Not available 08/16/2022 00:52:25 Father Diabetes mellitus [id number] Not available 08/16/2022 00:52:25 Mother Hypertensive disorder [id number] Not available 08/16/2022 00:52:25 Sister Obstructive sleep apnea syndrome [email or web address] Not available 06/19 10:12:23 Sister Asthma [email or web address] Not available 11:16:12 Mother Malignant tumor of ovary [email or web address] Not available 06/19 10:12:23 Mother Malignant tumor of pancreas [email or web address] Not available 06/19 10:12:23 Paternal Grandmother Heart disease [email or web address] Not available 2023 11:14:55 Maternal Grandmother Asthma [email or web address] Not available 2023 11:15:03 Paternal Grandfather Cerebrovascu lar accident [email or web address] Not available 0 07/15/2024 10:12:23 Paternal Aunt Heart disease [email or web address] Not available 2023 11:15:50 Medical History Condition Response ARTHRITIS Y EYE PROBLEMS Y CANCER: SPECIFY Y DIABETES, TYPE Y KIDNEY DISEASE Y HEART ARRHYTHMIA Y HAVE YOU BEEN HOSPITALIZED OR SEEN IN [facility] IN THE PAST YEAR ? Y RADIATION / CHEMOTHERAPY HYPERTENSION Y Gynecological History Statement/Question Response How many live births 2 Date of Last Mammogram Date of Last Mammogram Most Recent Bone Density 06/04/2018 Date of LMP Date of Last Pap Date of Last Pap Smear 08/22/2018 Current Control Method Menopause Age at Menarche 11 Breast Problems double mastectomy Obstetrics History GPAL:G 2 P 2 0 0 2 Type Value Multiple Births 0 Full Term 2 Induced 0 Spontaneous 0 Premature 0 Living 2 Ectopics 0 Total 2 Immunizations Vaccine Type Date Status Note Provider Nam e and Address Organization Details Recorded Time COVID-19, mRNA, LNP-S, PF, 100 mcg/0.5mL dose or 50 mcg/0.25mL dose 1 completed ALVARO Webster, [place] [facility] [place] [employer] 03/19/2024 11:42:30 COVID-19, mRNA, LNP-S, PF, 100 mcg/0.5mL dose or 50 mcg/0.25mL dose 1 completed ALVARO Webster null, [employer] [facility] 03/19/2024 11:42:30 COVID-19, mRNA, LNP-S, PF, 100 mcg/0.5mL dose or 50 mcg/0.25mL dose 1 completed ALVARO Webster, [place] [facility] 03/19/2024 11:42:30 Influenza, split virus, quadrivalent, PF 1 completed ALVARO Webster, [facility] [employer] 03/19/2024 11:42:30 Influenza, split virus, trivalent, preservative 3 completed Tatiana Bosch RMA null, [facility] 03/19/2024 11:42:30 COVID-19, mRNA, LNP-S, PF, 100 mcg/0.5mL dose or 50 mcg/0.25mL dose 1 completed Tatiana Bosch RMA null, [facility] 03/19/2024 11:42:30 Influenza, split virus, trivalent, preservative 1 completed Tatiana Bosch RMA null, [facility] 03/19/2024 11:42:30 SARS-COV-2 (COVID-19) vaccine, UNSPECIFIED 1 completed Tatiana Bosch RMA null, [facility] 03/19/2024 11:42:30 SARS-COV-2 (COVID-19) vaccine, UNSPECIFIED 1 completed Tatiana Bosch RMA null, [facility] 03/19/2024 11:42:30 Influenza, split virus, quadrivalent, preservative 9 completed Not Available [facility] 08/08/2023 11:45:10 Influenza, split virus, quadrivalent, preservative 7 completed Not Available [facility] 08/08/2023 11:45:10 Influenza, split virus, quadrivalent, PF 9 completed Not Available [facility] 08/08/2023 11:45:10 Tdap 8 completed Not Available [facility] 08/08/2023 11:45:10 Influenza, split virus, quadrivalent, PF 7 completed Not Available [facility] 08/08/2023 11:45:10 Influenza, split virus, quadrivalent, PF 8 completed Not Available [facility] 08/08/2023 11:45:10 Influenza, split virus, quadrivalent, PF 5 completed Not Available [facility] 08/08/2023 11:45:10 Influenza, split virus, quadrivalent, preservative 4 completed ALVARO Webster null, [place] [facility] [employer] 03/19/2024 11:42:30 Pneumococcal conjugate PCV20, polysaccharide GXY704 conjugate, adjuvant, PF 4 completed Callie Reis MD [address], [facility] [address], [place], [address], [place] [facility] 04/11/2024 21:45:17 Past Encounters Encounter ID Performer Location Encounter Start Date Encounter Closed Date Diagnosis/Indication Diagnosis SNOMED-CT Code Diagnosis ICD10 Code Diagnosis Note [id number] [facility] [place] [address] [place] [address] 08/17/2020 00:00:00 08/17/2020 12:54:17 [id number] [facility] [place] [address] [place] [address] 08/24/2020 00:00:00 08/24/2020 12:01:00 [id number] [facility] [place] [address] [place] [address] 09/06/2020 00:00:00 09/07/2020 09:15:54 [id number] [facility] [place] [address] [place] [address] 09/21/2020 00:00:00 09/21/2020 12:47:25 [id number] [facility] [place] [address] [place] [address] Dr. [facility] [place] [address] 10/04/2020 00:00:00 11/01/2020 12:23:30 [id number] [facility] [place] [address] [place] [address] 10/04/2020 00:00:00 10/04/2020 14:50:25 [id number] [facility] [place] [address] [place] [address] 10/18/2020 00:00:00 10/18/2020 13:30:45 [id number] _ATHENA_M IGRATION_ DEFAULT_1 _1 , 10/22/2020 00:00:00 10/22/2020 12:15:00 [id number] [facility] [place] [address] [place] [address] 11/01/2020 00:00:00 11/01/2020 12:24:09 [id number] [facility] [place] [address] [place] [address] 12/01/2020 00:00:00 12/01/2020 14:03:55 [id number] [facility] [place] [address] [place] [address] 12/30/2020 00:00:00 12/31/2020 11:06:48 [id number] [facility] [place] [address] [place] [address] 01/12/2021 00:00:00 01/12/2021 12:47:38 [id number] [facility] [place] [address] [place] [address] 01/17/2021 00:00:00 01/17/2021 17:16:50 [id number] [facility] [place] [address] [facility] [place] [address] 02/28/2021 00:00:00 02/28/2021 15:32:30 [id number] [facility] [place] [address] [place] [address] 04/25/2021 00:00:00 04/26/2021 13:30:48 [id number] [facility] [place] [address] [place] [address] 07/04/2021 00:00:00 07/20/2021 18:18:22 [id number] [facility] [place] [address] [place] [address] 08/16/2021 00:00:00 08/17/2021 12:30:27 [id number] [facility] [place] [address] [place] [address] 08/19/2021 00:00:00 08/19/2021 14:03:57 [id number] [facility] [place] [address] [place] [address] 09/08/2021 00:00:00 09/11/2021 14:36:09 [id number] [facility] [place] [address] [place] [address] 09/14/2021 00:00:00 09/14/2021 14:29:04 [id number] [facility] [place] [address] [place] [address] 11/21/2021 00:00:00 11/21/2021 13:53:54 [id number] [facility] [place] [address] [place] [address] 11/21/2021 00:00:00 11/21/2021 12:39:09 [id number] [facility] [address] [place] [address] 12/06/2021 00:00:00 12/06/2021 10:18:15 [id number] [facility] [place] [address] [place] [address] 01/03/2022 00:00:00 01/03/2022 13:39:19 [id number] [facility] [place] [address] [place] [address] 01/09/2022 00:00:00 01/10/2022 10:53:23 [id number] [facility] [place] [address] [place] [address] 02/01/2022 00:00:00 02/01/2022 18:42:09 [id number] [facility] [place] [address] [place] [address] 04/24/2022 00:00:00 04/24/2022 19:47:47 [id number] [facility] [address] [place] [address] 05/03/2022 00:00:00 05/03/2022 18:03:15 [id number] [facility] Podiatry [place] [address] [place] [address] 2022 00:00:00 05/09/2022 10:09:24 [id number] S_[facility] Endo [place] [address] [place] [address] 08/14/2022 00:00:00 08/14/2022 15:22:04 [id number] Callie elizabeth MD [facility] Internal Med [facility] [address] [facility] [place] [address] 09/11/2022 11:44:17 09/11/2022 12:48:52 Screening - NAD [id number] Z13.9 C-scope: 11/17/14, Dr Gonzales Mammogram: S/p mastectomy from cancer PAP: Seen by Dr Mireles 08/22/18, and path report was negative, was also seen by Dr Mireles 10/15/18 and in 10/22/2020 DEXA: 05/29/18: Neg UTD flu shot 04/24/19UT D tdap 05/30/18UT D COVID 19 vaccineCan do shingles vaccine RTC in 3 monthsDo labsER if worseShe did verbalize her understand ing of above Type 2 bekah betes mellitus without complication 016219363 E11.[address] n [address] Cao 08/14/2022 Dr Dumont 2022 Essential hypertension 58975098 I10 On losartan 25g dailyOn metoprolol 50mg bid Get labsDid see Dr Farley [facility] 09/16/2020 Stress test 10/11/2020 : Neg done as part of pre-op assessment by [facility] Dr Titi Farley [facility] 12/27/2021 , next in 6 months Hyperlipidemia 86836563 E78.5 On rosuvastat in 20mg dailyGet labs Malignant tumor of breast 516024768 C50.011 S/p R breast, s/p double mastectomy Pain of ri ght shoulder joint 2860530644 6605601 M25.511 Dr Kolb 10/14/2020 , Dr Martinez ortho on 10/13/[address] Martinez, s/p surgeryDoe s well now Hypercalcemia 01252095 E 83.[address] Farley and Dr Cao [place] d 89878T weeklyOn calcitriol Heart murmur 64370540 R0 1.1 09/01/2019 : ECHO, trace MR, EF 65%Does wellNo complaints Low back pain 260433273 M54.50 On gabapentin Sees [facility] , but no recent aptsGet on flexerill and MDP for now, notify if not better Chronic ki dney disease 372413710 N18.[address] Farley IJ Obstructiv e sleep apnea syndrome 58918243 G47.33 Needs to keep apt with pulmonary, sees Lesvia Nelson NPDoes well Liver enzy mes level above reference range 053370425 R74.01 US liver 08/02/2021 : Fatty liver, more diet and exercise is needed, does not want to see GI hepatology yetGet labs Environmental allergy 42 2376115 T78.49XA On zyrtec Does well on this Moderate r ecurrent major depression 52655095 F33.1 Does well on the venlafaxin e now Not suicidal or homicidal Declines any psychiatry referrals Vitamin D deficiency 347 32336 E55.9 Serum channing min B12 below reference range 970260979 R79.89 Adult heal th examination 089032688 Z00.00 Screening for disorder 463153645 Z13.9 Screening for osteoporosis 872415354 Z13.820 [id number] 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, 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-[facility] Pulmonolo gy [place] [address] [place] [address] 09/13/2022 11:52:30 09/14/2022 08:37:57 Obstructive sleep apnea syndrome 45647198 G47.33 Study 12/12/19 with AHI 67.9Machin e set up 12/30/19Do wnload today with 100% use greater than 4 hoursHer AHI is 1.0ESS 15She has good use and clinical benefit.Co ntinue current settings.S he is aware of supply cleaning and reordering .DANIEL is well correctedE ncouraged 100% compliance with all sleep, including napsFollow with PCM for labsAdvise d good sleep habits and patterns:- Set a goal for at least 7 to 8 hours of sleep time per day.-Use the bed mainly for sleep and to go to bed only when tired. If unable to fall asleep after 30 minutes, patient should get out of bed but should not engage in any activity that requires sustained mental alertness. -Maintain a regular bedtime and wake-up time even on weekends-A void excessive naps during the daytime. If a nap is necessary, limit it to no more than 30 minutes.-M inimize environmen juan noise, bright lights, and extremes in bedroom temperatur e.-Avoid alcohol, caffeinate d beverages, and nicotine products for at least 6 hours prior to bedtime.-A void strenuous exercise and large meals for at least 4 hours prior to bedtime.We discussed reportable signs and symptoms, she will call the office with concerns.S he is aware of supply cleaning and reordering .Discussed reportable signs and symptomsRT C in one year, PRN for concerns Morbid obesity 591300164 E66.01 Discussed weight management .Healthy well balanced meals.Incr ease exercise, ideally 30 minutes most days of the week.? [id number] Lenore Cao MD [facility] [address] [place] [address] 11/23/2022 15:53:13 11/23/2022 16:41:21 Uncontrolled type 2 diabetes mellitus 122973766 E11.65 a1c of 8.9%- patient reminded to complete her DST as her glucose control has worsened. She will uptitrate mounjaro to 7.5 mg once weekly. will uptitrate and modify her settings as follows:12 am to 9 am increase to 1.7 u/hr9 am to 12 am at 1.5 u/hrcorrec tion of 50 mg/dL with carb ratio of 1:5 Discussed carb counting and how to read food labels. Recommende d patient to utilize the diabetesfo Excellence4ub.com from the ADA website to help with food preparatio n as this presents ideal carb content per meal so this will make carb counting much easier for patient. Recommende d she incorporat e natural insulin top coater s such as pears, apples, cinnamon, rea and sweet potatoes to help mobilize her endogenous insulin. Recommende d up to 150 minutes of moderate level activity/e xercise weekly. Patient continues to use her glucose sensor regularly to help regulate her glucose control/ uses dexcom as integrated system. Will need to continue with CGM for regulation of glucose control. Dyslipidemia 574317817 E 78.5 continue on statin therapy. Heart murmur 40376539 R0 1.1 send for echocardio gram as patient has holosystol ic murmur on examinatio n- cardiac workup from 2 years ago. Spent up to 28 minutes preparing to see the patient (eg, review of tests), obtaining and/or reviewing separately obtained history, performing a medically appropriat e examinatio n and evaluation , counseling and educating the patient, ordering medication s, tests, along with documentin g clinical informatio n in the electronic health record, independen tly interpreti ng results and communicat ing results to the patient. RTC in 3-4 months. Patient was provided a handwritte n lab order which contains our fax number. If she chooses to go outside of the [facility] system to obtain labwork she was advised to provide our fax number and my informatio n to the lab she will be obtaining labwork from in order to have her labs properly forwarded over for me to review so there is no loss of follow up due to use of outside network. She was also advised to contact our clinic informing us that she has completed her labwork so we are aware we will need to reach out to the appropriat e laboratory to request her results be forwarded to us so I might have the ability to review and make further medical decision making in her case. She voiced understand ing. [id number] Callie elizabeth MD [facility] [place] [address] [facility] [address] [place] [address] 01/15/2023 10:26:46 01/15/2023 11:36:18 Screening - NAD [id number] Z13.9 C-scope: 11/17/14, Dr Gonzales Mammogram: S/p mastectomy from cancer PAP: Seen by Dr Mireles 08/22/18, and path report was negative, was also seen by Dr Mireles 10/15/18 and in 10/22/[address] Mireles OB, and her next apt is on 12/2023 as per her history DEXA: 05/29/18: Neg UTD flu shot 04/24/19UT D tdap 05/30/18UT D COVID 19 vaccineCan do shingles vaccine RTC in 3 monthsDo labsER if worseShe did verbalize her understand ing of above Type 2 bekah betes mellitus without complication 939625524 E11.9 On mounjarroO n humologOn jardiance 25mg daily Dr Vinnie Dumont 2022 Essential hypertension 74728491 I10 On losartan 25g dailyOn metoprolol 50mg bid Get labsDid see Dr Farley [facility] 09/16/2020 Stress test 10/11/2020 : Neg done as part of pre-op assessment by [facility] Dr Titi Farley [facility] 12/27/2021 , next in 6 months Hyperlipidemia 34170095 E78.5 On rosuvastat in 20mg dailyGet labs Malignant tumor of breast 256268963 C50.011 S/p R breast, s/p double mastectomy Pain of ri ght shoulder joint 1359420019 [address] M25.[address] Kolb 10/14/2020 , Dr Martinez ortho on 10/13/[address] Martinez, s/p surgeryDoe s well now Hypercalcemia 75766701 E 83.[address] Farley and Dr Cao On vit d 62018A weeklyOn calcitriol Heart murmur 29007479 R0 1.1 09/01/2019 : ECHO, trace MR, EF 65%Does wellNo complaints Low back pain 868738677 M54.50 On gabapentin Sees [facility] , but no recent aptsGet on flexerill and MDP for now, notify if not better Chronic ki dney disease 445207065 N18.[address] Farley IJ Obstructiv e sleep apnea syndrome 78547509 G47.33 Needs to keep apt with pulmonary, sees Lesvia Nelson NPDoes well Liver enzy mes level above reference range 819748603 R74.01 US liver 08/02/2021 : Fatty liver, more diet and exercise is needed, does not want to see GI hepatology yetGet labs Environmental allergy 42 7803006 T78.49XA On zyrtec Does well on this Moderate r ecurrent major depression 45426607 F33.1 Does well on the venlafaxin e now Not suicidal or homicidal Declines any psychiatry referrals Vitamin D deficiency 347 61501 E55.9 Serum channing min B12 below reference range 064801457 R79.89 [id number] Lenore Cao MD [facility] [place] [address] [place] [address] 02/27/2023 11:11:45 02/27/2023 12:13:41 Uncontrolled type 2 diabetes mellitus 472576229 E11.65 A1C of 7.7% down from 8.9%- improvemen t since addition of mounjaro- she is on 7.5 mg once weekly and tolerating well- she has lost up to 30 pounds this past winter. Continue jardiance 25 mg daily as she is drinking ample water and has no recent yeast infections . Will reduce her night setting to reduce risk for further hypoglycem ia:12 am to 9 am decrease to 1.6 u/hrcontin ue 9 am to 12 am at 1.5 u/hrcorrec tion of 50 mg/dL with carb ratio of 1:5 Refill pods, sensors and send for Gvoke for hypoglycem ia rescue. She is compliant with her freestyle waldo and this has kept her controlled / out of hospital and allowed patient to be proactive to avoid hypoglycem ia. Dyslipidemia 331695585 E 78.5 continue on statin therapy as LDL in range. Spent up to 25 minutes preparing to see the patient (eg, review of tests), obtaining and/or reviewing separately obtained history, performing a medically appropriat e examinatio n and evaluation , counseling and educating the patient, ordering medication s, tests, along with documentin g clinical informatio n in the electronic health record, independen tly interpreti ng results and communicat ing results to the patient. Patient can be followed by PCP - she/he is aware of my resignatio n and last day of March 30. If needed his/her PCP can refer patient to another endocrinol ogist in the area. All questions /concerns answered and refills necessary at visit today. [id number] Callie elizabeth MD [facility] [place] [address] [facility] [place] [address] 03/19/2023 12:07:03 03/19/2023 12:53:19 Screening - NAD [id number] Z13.9 C-scope: 11/17/14, Dr Gonzales Mammogram: S/p mastectomy from cancer PAP: Seen by Dr Mireles 08/22/18, and path report was negative, was also seen by Dr Mireles 10/15/18 and in 10/22/[address] Mireles OB, and her next apt is on 12/2023 as per her history DEXA: 05/29/18: NegDEXA: 10/06/2022 : Neg UTD flu shot 04/24/19UT D tdap 05/30/18UT D COVID 19 vaccineCan do shingles vaccineGet RSV vaccine RTC in 3 monthsDo labsER if worseShe did verbalize her understand ing of above Type 2 bekah betes mellitus without complication 515952562 E11.9 On mounjarroO n humologOn jardiance 25mg daily Dr Vinnie Dumont 2022 Essential hypertension 54095126 I10 On losartan 25g dailyOn metoprolol 50mg bid Get labsDid see Dr Farley [facility] 09/16/2020 Stress test 10/11/2020 : Neg done as part of pre-op assessment by [facility] Dr Titi Farley [facility] 12/27/2021 , next in 6 months Hyperlipidemia 66048620 E78.5 On rosuvastat in 20mg daily will now do 5 days a week 03/19/2023 Get labs Malignant tumor of breast 508159713 C50.011 S/p R breast, s/p double mastectomy Pain of ri ght shoulder joint 5629836140 8980340 M25.511 Dr Kolb 10/14/2020 , Dr Juan stewart on 10/13/[address] Martinez, s/p surgeryDoe s well now Hypercalcemia 78472420 E 83.[address] Farley and Dr Cao On vit d 95271H weeklyOn calcitriol Heart murmur 53458633 R0 1.1 09/01/2019 : ECHO, trace MR, EF 65%Does wellNo complaints Low back pain 369268033 M54.50 MRI L Spine 02/14/2023 On gabapentin Sees [facility], s/p 'shot' but is thinking about a nerve stimulator as per her hx today 03/19/2023 Chronic ki dney disease 199034733 N18.[address] Farley IJ Obstructiv e sleep apnea syndrome 98941505 G47.33 Needs to keep apt with pulmonary, sees Lesvia Nelson [employer] next 09/14/2023 Does well Liver enzy mes level above reference range 793688219 R74.01 US liver 08/02/2021 : Fatty liver, more diet and exercise is needed, does not want to see GI hepatology yetGet labs Environmental allergy 42 7270559 T78.49XA On zyrtec Does well on this Moderate r ecurrent major depression 17433016 F33.1 Does well on the venlafaxin e now Not suicidal or homicidal Declines any psychiatry referrals Vitamin D deficiency 347 30676 E55.9 Serum channing min B12 below reference range 753024380 R79.89 [id number] DERRICK Mccauley [facility] [address] [address] 05/03/2023 11:22:10 05/03/2023 13:04:33 Pain of left knee joint 0493611284 65834 M25.719 [id number] Callie elizabeth MD [facility] Internal [facility] [place] [address] [facility] [place] [address] 07/23/2023 11:51:04 07/23/2023 12:34:00 Screening - NAD 495785645 Z13.9 C-scope: 11/17/14, Dr Gonzales Mammogram: S/p mastectomy from cancer PAP: Seen by Dr Mireles 08/22/18, and path report was negative, was also seen by Dr Mireles 10/15/18 and in 10/22/[address] Mireles OB, and her next apt is on 12/2023 as per her history DEXA: 05/29/18: NegDEXA: 10/06/2022 : Neg UTD flu shot 04/24/19UT D tdap 05/30/18UT D COVID 19 vaccineCan do shingles vaccineGet RSV vaccine RTC in 3 monthsDo labsER if worseShe did verbalize her understand ing of above Type 2 bekah betes mellitus without complication 484095644 E11.9 On mounjarroO n humolog 100U via pumpOn jardiance 25mg daily Dr Vinnie Dumont 2022 Essential hypertension 59574921 I10 On losartan 25g dailyOn metoprolol 50mg bid Get labsDid see Dr Farley [facility] 09/16/2020 Stress test 10/11/2020 : Neg done as part of pre-op assessment by [facility] Dr Titi Fraley [facility] 12/27/2021 , next in 6 months Hyperlipidemia 63116467 E78.5 On rosuvastat in 20mg daily will now do 5 days a week 03/19/2023 Get labs Malignant tumor of breast 966103576 C50.011 S/p R breast, s/p double mastectomy Pain of ri ght shoulder joint 9167824160 1243711 M25.[address] Kolb 10/14/2020 , Dr Martinez ortho on 10/13/[address] Martinez, s/p surgeryDoe s well now Hypercalcemia 34966962 E 83.[address] Farley and Dr Cao On vit d 56851C weeklyOn calcitriol Heart murmur 19144808 R0 1.1 09/01/2019 : ECHO, trace MR, EF 65%Does wellNo complaints Low back pain 910872774 M54.50 MRI L Spine 02/14/2023 On gabapentin On tizanidine Sees IPC, s/p 'shot' but is thinking about a nerve stimulator as per her hx today 03/19/2023 Chronic ki dney disease 593469219 N18.[address] Farley IJ Obstructiv e sleep apnea syndrome 25068973 G47.33 Needs to keep apt with pulmonary, sees Lesvia Nelson [employer]PER[employer] next 09/14/2023 Does well Liver enzy mes level above reference range 707163324 R74.01 US liver 08/02/2021 : Fatty liver, more diet and exercise is needed, does not want to see GI hepatology yetGet labs Environmental allergy 42 3883696 T78.49XA On zyrtec Does well on this Moderate r ecurrent major depression 21906132 F33.1 Does well on the venlafaxin e now Not suicidal or homicidal Declines any psychiatry referrals Vitamin D deficiency 347 53898 E55.9 Serum channing min B12 below reference range 064809185 R79.89 [id number] Jan [place] MD [facility] [address] 08/08/2023 09:45:52 08/09/2023 08:39:11 Periodic limb movement disorder 309432721 G47.61 D50.8 E83.42 Obstructiv e sleep apnea syndrome 72154575 G47.33 [id number] Jan [place]ries MD [facility]_[address] [address] 08/28/2023 13:53:52 08/29/2023 08:56:41 Periodic limb movement disorder 599269497 G47.61 D50.8 E83.42 Obstructiv e sleep apnea syndrome 17536273 G47.33 Hemochromatosis 03290379 6 E83.606 [id number] Callie elizabeth MD [facility] Internal Med [address] , [place] [address] 11/21/2023 11:55:56 11/21/2023 13:14:27 Adult health examination 580002603 Z00.00 Screening for disorder 998450643 Z13.9 Screening - NAD 50967005 3 Z13.9 C-scope: 11/17/14, Dr Gonzales Mammogram: S/p mastectomy from cancer PAP: Seen by Dr Mireles 08/22/18, and path report was negative, was also seen by Dr Mireles 10/15/18 and in 10/22/[address] Chi MAGUIRE, and her next apt is on 12/2023 as per her history DEXA: 05/29/18: NegDEXA: 10/06/2022 : Neg UTD flu shot 04/24/19UT D tdap 05/30/18UT D COVID 19 vaccineCan do shingles vaccineGet RSV vaccine RTC in 3 monthsDo labsER if worseShe did verbalize her understand ing of above Type 2 bekah betes mellitus without complication 672427018 E11.9 On mounjarroO n humolog 100U via pumpOn jardiance 25mg daily Dr Vinnie Dumont 2022 Essential hypertension 05478678 I10 On losartan 25g dailyOn metoprolol 50mg bid Get labsDid see Dr Far[facility] [facility] 09/16[facility]2020 Stress test 10/11/2020 : Neg done as part of pre-op assessment by HV Dr Titi Farley [facility] 12/27/2021 , next in 6 months Hyperlipidemia 50584683 E78.5 On rosuvastat in 20mg daily will now do 5 days a week 03/19/2023 Get labs Malignant tumor of breast 272613199 C50.011 S/p R breast, s/p double mastectomy Pain of ri ght shoulder joint [id number] 7140831 M25.511 Dr Kolb 10/14/2020 , Dr Martinez ortho on 10/13/[address] Martinez, s/p surgeryDoe s well now Hypercalcemia 11472272 E 83.[address] Farley [place] [address]2052M weeklyOn calcitriol Heart murmur 44789533 R0 1.1 09/01/2019 : ECHO, trace MR, EF 65%Does wellNo complaints Low back pain 577749166 M54.50 MRI L Spine 02/14/2023 On gabapentin On tizanidine Sees IPC, s/p 'shot's/p nerve stimulator Chronic ki dney disease 139431279 N18.[address] Farley IJ Obstructiv e sleep apnea syndrome 16235894 G47.33 Needs to keep apt with pulmonary, sees Lesvia Nelson [employer] [employer] next 09/14/2023 Does well Liver enzy mes level above reference range 642706954 R74.01 US liver 08/02/2021 : Fatty liver, more diet and exercise is needed, does not want to see GI hepatology yetGet labs Environmental allergy 42 8965182 T78.49XA On zyrtec Does well on this Moderate r ecurrent major depression 04065308 F33.1 Does well on the venlafaxin e now Not suicidal or homicidal Declines any psychiatry referrals Vitamin D deficiency 347 69797 E55.9 Serum channing min B12 below reference range 218713563 R79.89 Hyperbilirubinemia 68612 006 E80.6 Get US liver Steatosis of liver 1007 K76.0 US liver [id number] Callie elizabeth MD [facility] [place] [address] [facility] [place] [address] 03/19/2024 11:13:26 03/19/2024 11:57:08 Screening - NAD 495205460 Z13.9 C-scope: 11/17/14, Dr Gonzales Mammogram: S/p mastectomy from cancer PAP: Seen by Dr Mireles 08/22/18, and path report was negative, was also seen by Dr Mireles 10/15/18 and in 10/22/[address] Mireles OB, and her next apt is on 12/2023 as per her history DEXA: 05/29/18: NegDEXA: 10/06/2022 : Neg UTD flu shot 04/24/19UT D tdap 05/30/18UT D COVID 19 vaccineCan do shingles vaccineGet RSV vaccine RTC in 3 monthsDo labsER if worseShe did verbalize her understand ing of above Type 2 bekah betes mellitus without complication 749112343 E11.9 On mounjaro 7.5mg weeklyOn humolog 100U via pump as per Dr Bonny grey 25mg daily Dr Vinnie Dumont 2022 Essential hypertension 09818599 I10 On losartan 25g dailyOn metoprolol 50mg bid Get labsDid see Dr Farley [facility] 09/16/2020 Stress test 10/11/2020 : Neg done as part of pre-op assessment by [facility] Dr Titi Farley [facility] 12/27/2021 , next in 6 months Hyperlipidemia 45682634 E78.5 On rosuvastat in 20mg daily will now do 5 days a week 03/19/2023 Get labs Malignant tumor of breast 161326359 C50.011 S/p R breast, s/p double mastectomy Pain of ri ght shoulder joint [id number] 1414952 M25.511 Dr Kolb 10/14/2020 , Dr Martinez ortho on 10/13/[address] Martinez, s/p surgeryDoe s well now Hypercalcemia 42512299 E 83.[address] Farley and Dr Cao On [place] d 25250H weeklyOn calcitriol Heart murmur 95848673 R0 1.1 09/01/2019 : ECHO, trace MR, EF 65%Does wellNo complaints Low back pain 380905816 M54.50 MRI L Spine 02/14/2023 On gabapentin On tizanidine Sees IPC, s/p 'shot's/p nerve stimulator Chronic ki dney disease 384067695 N18.[address] Farley IJ Obstructiv e sleep apnea syndrome 77331034 G47.33 Needs to keep apt with pulmonary, sees Lesvia Nelson [employer] [employer] next 09/14/2023 Does well Liver enzy mes level above reference range 275311047 R74.01 US liver 08/02/2021 : Fatty liver, more diet and exercise is needed, does not want to see GI hepatology yetGet labsUS liver: 12/12/2023 : Hepatic steatosis and hepatomega ly Environmental allergy 42 5588301 T78.49XA On zyrtec Does well on this Moderate r ecurrent major depression 68768156 F33.1 Does well on the venlafaxin e now Not suicidal or homicidal Declines any psychiatry referrals Vitamin D deficiency 347 31472 E55.9 Serum channing min B12 below reference range 120901542 R79.89 Hyperbilirubinemia 01408 006 E80.6 Get US liver Erythrocytosis 351752239 D75.1 Repeat the labs Administra tion of pneumococcal vaccine 57779509 Z23 [id number] Magui Samson NP [facility] [address] [place] [address] 03/25/2024 14:17:22 03/26/2024 14:13:19 Hypersomnia with sleep apnea 88139082 G47.19 Obstructiv e sleep apnea syndrome 99170986 G47.33 Study 12/12/19 with AHI 67.9Machin e set up 12/30/19Do wnload today with 100% use greater than 4 hoursHer AHI is 26.8ESS 10CPAP supply order-will need different mask and identify humidifier issues-ebenezer l try frozen distilled ice cubes in humidifier She has good use and clinical benefit.Co ntinue current settings.S he is aware of supply cleaning and reordering .DANIEL is well correctedE ncouraged 100% compliance with all sleep, including napsFollow with PCM for labsAdvise d good sleep habits and patterns:- Set a goal for at least 7 to 8 hours of sleep time per day.-Use the bed mainly for sleep and to go to bed only when tired. If unable to fall asleep after 30 minutes, patient should get out of bed but should not engage in any activity that requires sustained mental alertness. -Maintain a regular bedtime and wake-up time even on weekends-A void excessive naps during the daytime. If a nap is necessary, limit it to no more than 30 minutes.-M inimize environmen juan noise, bright lights, and extremes in bedroom temperatur e.-Avoid alcohol, caffeinate d beverages, and nicotine products for at least 6 hours prior to bedtime.-A void strenuous exercise and large meals for at least 4 hours prior to bedtime.We discussed reportable signs and symptoms, she will call the office with concerns.S he is aware of supply cleaning and reordering .Discussed reportable signs and symptomsRT C in 3 months to follow-up with Dr Jeffries Morbid obesity 454023776 E66.01 Discussed weight management .Healthy well balanced meals.Incr ease exercise, ideally 30 minutes most days of the week.? [id number] Jan Jeffries MD [facility] [address] [address] 07/15/2024 10:09:22 07/15/2024 11:35:09 Periodic limb movement disorder 948460620 G47.61 Obstructiv e sleep apnea syndrome 74384467 G47.33 Hemochromatosis 00375210 6 E83.119 Health Concerns Section Related Observation LastModified by Organization Detai ls LastModified Time None Recorded Concern Status LastModified by Organization Details LastModified Time None Recorded Advance Directives Directive N: Information provided Payers Encounter Date Sequence Insurance Name Policy Number Policy Palma Covered Member ID Palma Member ID Guarantor Name 08/28/2023 1 [facility] (MEDICARE REPLACEMENT/A DVANTAGE - HMO) [id number] Neha Hamida Jose [id number] Neha Jenkins 11/21/2023 1 [facility] (MEDICARE REPLACEMENT/A DVANTAGE - HMO) [id number] Neha Hamida Jose [id number] Neha A Jose 03/19/2024 1 [facility] (MEDICARE REPLACEMENT/A DVANTAGE - HMO) [id number] Nehagrayson Jenkins [id number] Neha Jenkins 03/25/2024 1 [facility] (MEDICARE REPLACEMENT/A DVANTAGE - HMO) [id number] Neha Jenkins [id number] Neha Jenkins 07/15/2024 1 [facility] (MEDICARE REPLACEMENT/A DVANTAGE - HMO) [id number] Neha Jenkins [id number] Neha Jenkins Notes Date Note Type Note Provider Name and Address Organization Details Recorded Time 08/28/2023 text/html Primary care/Ref erring provider: Callie Reis MD During the [facility] split night sleep study on 12/12/19, AHI = 57, [employer] small Eson 2 nasal mask was applied, @ 12 cmH2O. PLMI = 12 and she is here to go over her lab workup. At home since 08/08/23, the patient uses a ResMed AirSense 10 autoset unit with heated humidification. The patient does not need the ramp to start low and go up slowly on the pressure anymore. There is some xerostomia in a.m. There is no hose/mask condensation with water.The patient wears a [employer] small Vitera full face mask without chin strap. There is no claustrophobia, no nostril/nose bridge irritation, no facial rash, no facial numbness, no nosebleeding. The patient feels more refreshed upon waking and daytime alertness is improved. Energy levels are sustained until evening hours, around 8 pm. At home, the patient sleeps from 2 am to 10 am and wakes up without an alarm. Snoring: heavy, since 1980s.Snorting: yesChoking: yesCoughing: noGasping: yesGagging: noSighing: noWitnessed apnea: yesTwitching or jerking of leg(s), arm(s), body, head: yesTeeth grinding: noTeeth clenching: noSleeptalking: noSleepwalking: noSleep crying: noBedwetting: noTongue/lip/gum/cheek biting: noSleeping with open mouth: yesSleep paralysis: noHypnagogic hallucinations: noHypnopompic hallucinations: noVivid dreams: noDifficulty with sleep onset: noDifficulty with sleep maintenance: yesSleep interruptions: nocturia x 1Patient wakes up with: fatigue, xerostomia, mobility impairmentDaytime cataplexy: noMorning hypersomnolence: noAfternoon hypersomnolence: yesCaffeine sources in diet: chocolate 1 candy per week Associated medical and psychiatric conditions:Congestive heart failure: noCoronary artery disease: noMyocardial infarction: noHypertension: yesStroke: noBronchial asthma: noChronic obstructive pulmonary disease: noDepression: yesBipolar disorder: noAnxiety: noPanic disorder: noPosttraumatic stress disorder: noAttention deficit and hyperactivity disorder: noObsessive Compulsive disorder: noSchizophrenia: noSchizoaffective disorder: noPersonality disorder: noChronic analgesic use: noChronic sedative/hypnotic use: no EPWORTH SLEEPINESS SCALE (ESS) CHANCE OF DOZING SCORE0 = would never doze1 = slight chance of dozing2 = moderate chance of dozing3 = high chance of dozing SITUATION AND CHANCE OF DOZINGSitting and reading - 2Watching television - 2Sitting inactive in a public place (e.g. a theater or meeting) - 0As a passenger in a car for an hour without a break - 0Lying down to rest in the afternoon when circumstances permit - 3Sitting and talking to someone - 0Sitting quietly after lunch without alcohol - 0In a car, while stopped for a few minutes in the traffic - 0TOTAL SCORE 7Subjectively, patient has a slight chance of dozing. Jan Jeffries MD [address] [facility], [place], [address], [facility] [employer] 08/28/2023 14:40:49 11/21/2023 text/html Here to josiane Matute Hx:HTNLBPDMIIHLDDepres sionReviewed social family and surgical historyHere to discuss some of the issues aboveShbeth has seen Dr Cao in endocrine OV 07/03/18:Here for ACV:C/o sinus headachesHas been getting over a coldNo fevers or chillsNo N/V or diarrheaNo blood in sputum or noseNo rash OV 08/26/18:Here for her routine aptHere also for her MWVShe has also seen endo Dr Cao and Dr Mireles OV 10/07/18:Here for her routine aptShe did do the labsShe does have R shoulder pain s/p MRI done by Dr Ford, and is also to see Dr Fermin OV 04/24/19:Here for her routine aptShe did do the labs and feels well todayShe has seen Dr Cao, and also has seen a doctor who gave her stem cells in the R shoulderShe also has seen Dr Dumont for a foot fracture that occured when she was vacationing in [place]] OV 08/27/2019:Here for her routine aptShe feels wellShe did do the labs on 08/11/[address] Cao also OV 09/23/2019:telephone visitShe did agree to the telephone visitS/p hospitalized for dizziness and noted to have renal failure, was likely resulted from dehydration from AMS by taking morphine given by pain managementShe was again eval in the ER for persistent nausea and vomiting but not admittedToday she states that she is doing much betterNo GI complaints, no problems with urinationHer extensive ROS is negative OV 10/27/2019:Tele visitShe is agreeable to do the tele visitShe states that she stopped the venlafaxineShe is doing well, not having any depression or anxiety and is not suicidal or homicidalShe is also going to see Dr Cao and Dr Colin is not yet started on the olmesartan yet after her hospital stay OV 12/15/2019;Here to discuss starting on the phentermineShe is doing wellStrina has understood the side effects of the phentermine and wants to start this OV 01/12/2020:Here for her weight loss medIs doing wellDoes need a referral to eye MD and breast bra store OV 03/08/2020:Here for her routine aptShe did do the labsShe is feeling well, except for the allergy symptoms, she has seen the [facility] recentlyHer ROS is negative OV 05/05/2020:ACV:Tele visit, she is agreeable to do the visitC/o COVID 19 exposure and some symptomsThese are listed belowHere has diagnosed with COVID 19, was exposed to his friendHis symptoms began last week and he was tested +ve OV 06/07/2020:Here for her routine aptShe is doing wellShe did get COVID 19+ve and her surgery for ENT was cancelledShe did do the labs OV 10/04/2020:Here for her routine aptShe is doing well, she did see Dr Kolb but now has been referred to Dr Martinez for R shoulder surgeryShe is to see Dr Cao today alsoAlba would like to restart on the venlafaxine as she feels that she may have some depression from the potential upcoming surgery, she is not suicidal or homicidal OV 11/01/2020:Here for her one month aptShe feels that the venlafaxine did help a lot, she feels more calm nowNot suicidal or homicidalShe is now to get her shoulder surgery with Dr Martinez OV 02/28/2021:Here for her routine aptShe is doing wellShe is s/p shoulder replacement surgeryNo recent labs notedHere for her MWV also OV 07/04/2020:Here for her routine aptShe is doing Amando did do the labs on 06/30/2021 OV 11/21/2021:Here for routine aptShe is doing Amando did see Dr Cao and has had her insulin adjustedShe did do the labs OV 02/01/2022:Here for her pre op, she is to get surgery in her left eyeNo complaints at this time OV 09/11/2022:Here for her f/u apt, she is doing well, she is here for her wellness visit also, has noted some LBP, pain in the R lower back, no N/T or weakness no loss of bowel or bladder symptoms OV 01/15/2023:Here for her f/u apt with a tele visit, she is agreeable to do the televisitDoes well OV 03/19/2023: Here for her f/u apt, she is doing well today, did do the labs OV 07/23/2023: Here for her routine apt, she is doing very well today, she did do the labs on 07/19/2023 OV 11/21/2023: Here for her f/u apt, she is doing well today Callie Reis MD [address] [place] [address], [place] [address], [place], [address], [facility] 11/22/2023 08:04:28 03/19/2024 text/html Here to josiane Matute Hx:HTNLBPDMIIHLDDepres sionReviewed social family and surgical historyHere to discuss some of the issues aboveShe has seen Dr Cao in endocrine OV 07/03/18:Here for ACV:C/o sinus headachesHas been getting over a coldNo fevers or chillsNo N/V or diarrheaNo blood in sputum or noseNo rash OV 08/26/18:Here for her routine aptHere also for her MWVShe has also seen endo Dr Cao and Dr Mireles OV 10/07/18:Here for her routine aptShe did do the labsShe does have R shoulder pain s/p MRI done by Dr Ford, and is also to see Dr Fermin OV 04/24/19:Here for her routine aptShe did do the labs and feels well todayShe has seen Dr Cao, and also has seen a doctor who gave her stem cells in the R shoulderShe also has seen Dr Dumont for a foot fracture that occured when she was vacationing in [place]] OV 08/27/2019:Here for her routine aptShe feels wellShe did do the labs on 08/11/[address] Cao also OV 09/23/2019:telephone visitShe did agree to the telephone visitS/p hospitalized for dizziness and noted to have renal failure, was likely resulted from dehydration from AMS by taking morphine given by pain managementShe was again eval in the ER for persistent nausea and vomiting but not admittedToday she states that she is doing much betterNo GI complaints, no problems with urinationHer extensive ROS is negative OV 10/27/2019:Tele visitShe is agreeable to do the tele visitShe states that she stopped the venlafaxineShe is doing well, not having any depression or anxiety and is not suicidal or homicidalShe is also going to see Dr Cao and Dr Colin is not yet started on the olmesartan yet after her hospital stay OV 12/15/2019;Here to discuss starting on the phentermineShe is doing wellShe has understood the side effects of the phentermine and wants to start this OV 01/12/2020:Here for her weight loss medIs doing wellDoes need a referral to eye MD and breast bra store OV 03/08/2020:Here for her routine aptShe did do the labsShe is feeling well, except for the allergy symptoms, she has seen the [facility] [employer] recentlyHer ROS is negative OV 05/05/2020:ACV:Tele visit, she is agreeable to do the visitC/o COVID 19 exposure and some symptomsThese are listed belowHere has diagnosed with COVID 19, was exposed to his friendHis symptoms began last week and he was tested +ve OV 06/07/2020:Here for her routine aptShe is doing wellShe did get COVID 19+ve and her surgery for ENT was cancelledShe did do the labs OV 10/04/2020:Here for her routine aptShe is doing well, she did see Dr Kolb but now has been referred to Dr Martinez for R shoulder surgeryShe is to see Dr Cao today alsoShbeth would like to restart on the venlafaxine as she feels that she may have some depression from the potential upcoming surgery, she is not suicidal or homicidal OV 11/01/2020:Here for her one month aptShe feels that the venlafaxine did help a lot, she feels more calm nowNot suicidal or homicidalShe is now to get her shoulder surgery with Dr Martinez OV 02/28/2021:Here for her routine aptShe is doing wellShe is s/p shoulder replacement surgeryNo recent labs notedHere for her MWV also OV 07/04/2020:Here for her routine aptShe is doing Amando did do the labs on 06/30/2021 OV 11/21/2021:Here for routine aptShe is doing wellStrina did see Dr Cao and has had her insulin adjustedShe did do the labs OV 02/01/2022:Here for her pre op, she is to get surgery in her left eyeNo complaints at this time OV 09/11/2022:Here for her f/u apt, she is doing well, she is here for her wellness visit also, has noted some LBP, pain in the R lower back, no N/T or weakness no loss of bowel or bladder symptoms OV 01/15/2023:Here for her f/u apt with a tele visit, she is agreeable to do the televisitDoes well OV 03/19/2023: Here for her f/u apt, she is doing well today, did do the labs OV 07/23/2023: Here for her routine apt, she is doing very well today, she did do the labs on 07/19/2023 OV 11/21/2023: Here for her f/u apt, she is doing well today OV 03/19/2024: Here for her f/u apt, she feels well, she did do the labs on 03/14/2024 Callie Reis MD [address] [facility] [facility] [address], [place], [address], [facility] 04/11/2024 21:49:39 03/25/2024 text/html CPAP F/UReported bypatient.CPAPPatient is using CPAP and estimates 8 hours of PAP use nightly.; no trouble with sleep initiation; no problems with sleep maintenance; does not remove CPAP mask during the night; does not wake up in the middle of the night with dry mouth; no snoring through the mask; no abdominal discomfort; no ear pain; no ear pressure; no nasal congestion; wakes up rested; no excessive daytime sleepiness; no headache; no memory loss;Problems with CPAP;mask leaks;wakes up in the middle of the night with dry mouth;aerophagia;skin irritationNotes:humdif ier is going dry after 4 hours Magui Samson NP [address], [place], [address], [place] [facility] [employer] [facility] 03/25/2024 15:06:36 07/15/2024 text/html Primary care/Ref erring provider: Callie Reis MD CC: My nose bridge hurt and I changed from an [id number] full face mask to an [id number] full face mask. During the [facility] split night sleep study on 12/12/19, AHI = 57, [employer] small Eson 2 nasal mask was applied, @ 12 cmH2O. PLMI = 12 and she is here to go over her lab workup. At home since 03/25/24, the patient uses a ResMed AirSense 10 autoset unit with heated humidification. The patient does not need the ramp to start low and go up slowly on the pressure anymore. There is some xerostomia in a.m. There is no hose/mask condensation with water.The patient changed from a [employer] small Vitera full face mask to a [employer] small Delicia full face mask without chin strap. There is no claustrophobia, no nostril/nose bridge irritation, no facial rash, no facial numbness, no nosebleeding. The patient feels more refreshed upon waking and daytime alertness is improved. Energy levels are sustained until evening hours, around 8 pm. At home, the patient sleeps from 2 am to 10 am and wakes up without an alarm. Snoring: heavy, since 1980s.Snorting: yesChoking: yesCoughing: noGasping: yesGagging: noSighing: noWitnessed apnea: yesTwitching or jerking of leg(s), arm(s), body, head: yesTeeth grinding: noTeeth clenching: noSleeptalking: noSleepwalking: noSleep crying: noBedwetting: noTongue/lip/gum/cheek biting: noSleeping with open mouth: yesSleep paralysis: noHypnagogic hallucinations: noHypnopompic hallucinations: noVivid dreams: noDifficulty with sleep onset: noDifficulty with sleep maintenance: yesSleep interruptions: nocturia x 1Patient wakes up with: fatigue, xerostomia, mobility impairmentDaytime cataplexy: noMorning hypersomnolence: noAfternoon hypersomnolence: yesCaffeine sources in diet: chocolate 1 candy per week Associated medical and psychiatric conditions:Congestive heart failure: noCoronary artery disease: noMyocardial infarction: noHypertension: yesStroke: noBronchial asthma: noChronic obstructive pulmonary disease: noDepression: yesBipolar disorder: noAnxiety: noPanic disorder: noPosttraumatic stress disorder: noAttention deficit and hyperactivity disorder: noObsessive Compulsive disorder: noSchizophrenia: noSchizoaffective disorder: noPersonality disorder: noChronic analgesic use: noChronic sedative/hypnotic use: no EPWORTH SLEEPINESS SCALE (ESS) CHANCE OF DOZING SCORE0 = would never doze1 = slight chance of dozing2 = moderate chance of dozing3 = high chance of dozing SITUATION AND CHANCE OF DOZINGSitting and reading - 2Watching television - 2Sitting inactive in a public place (e.g. a theater or meeting) - 0As a passenger in a car for an hour without a break - 0Lying down to rest in the afternoon when circumstances permit - 3Sitting and talking to someone - 0Sitting quietly after lunch without alcohol - 1In a car, while stopped for a few minutes in the traffic - 0TOTAL SCORE 8Subjectively, patient has a slight chance of dozing. Jan Jeffries MD [address] [place] [address], [address], [address], [facility] 07/15/2024 11:07:40 OBGyn Episode No OBEpisode recorded.
== END 2024-07-23 11:05 | disposition home or self-care (01) ==
LOC: ANHLAB 11:05
PROVIDERS: PCP Internal Medicine; Visit Provider Internal Medicine Hematology & Oncology
DX: E83.110 Hereditary hemochromatosis (principal)
CPT/HCPCS: 36415; 80047; 80053; 85025

== ENCOUNTER 2025-01-13 12:49 | Outpatient (CLI) | payer MEDICARE, SELFPAY ==
--- OUTSIDE RECORDS SUMMARY | 2025-01-13 12:55 | XMS_ITS | Clinical Summary ---
[facility] Address [address] [facility] [place] [address] Care Team Providers Care Armature Rewinder Name Role Phone Jelani Reis MD Primary Care Provider Allergies Active Allergy Reactions Criticality Noted Date Comments Clindamycin Other (See Comments),Unknown Low 04/23/2023 Penicillins Hives,Other (See Comments),Unknown High 09/16/2020 Reaction: Reaction: Hives, , Medications calcitRIOL (ROCALTROL) 0.25 mcg capsule Take [...] Encounters Date Type Department Care Team Description 12/31/2024 External Device Data STL ABSTRACTION Provider, Abstract 12/31/2024 External Device Data ST[facility] ABSTRACTION Provider, Abstract 12/31/2024 External Device Data [facility] ABSTRACTION Provider, Abstract 11/05/2024 External Device Data [facility] ABSTRACTION Provider, Abstract 11/04/2024 External Device Data ST[facility] ABSTRACTION Provider, Abstract [...] Comments Blood Pressure 112/68 07/23/2024 11:28 AM ZUMBA INSTRUCTOR Pulse 84 07/23/2024 11:28 AM ZUMBA INSTRUCTOR Temperature 36.4 C (97.5 F) 07/23/2024 11:28 AM ZUMBA INSTRUCTOR Respiratory Rate 16 07/23/2024 11:28 AM ZUMBA INSTRUCTOR Oxygen Saturation 93% 07/23/2024 11:28 AM ZUMBA INSTRUCTOR Inhaled Oxygen Concentration - - Weight 94.8 kg (209 lb) 07/23/2024 11:28 AM ZUMBA INSTRUCTOR Height 157.5 cm (5' 2) 09/11/2023 10:43 AM CDT Body Mass Index 38.23 09/11/2023 10:43 AM CDT Plan of Treatment Upcoming Encounters Date Type Department Care Team (Late st Contact Info) Description 01/21/2025 11:00 AM CDT Office Visit [facility] Oncology and Hematology - [address] [facility] [address] [place] [address] Taran Valenzuela MD [address] [facility] [address] [place] [address] Health Maintenance Due Date Last [...] Q 6 MONTHS 03/25/2019 09/23/2018 PNEUMOCOCCAL VACCINE 50+ YEA RS (2 of 2 - PCV) 12/07/2023 12/06/2022 COVID-19 Vaccine (4 - 2023-2 5 season) 2024 05/05/2021, 09/10/2020, 08/13/2020 Medicare Advantage ([place]) Preventative Visit/Annual Wellness Visit 06/18/2024 INFLUENZA VACCINE (#1) 2025 , 05/05/2021, 04/30/2019, Additional history exists OSTEOPOROSIS SCREENING 10/07/2027 10/06/2022 DTAP/TDAP/TD VACCINES (2 - T d or Tdap) 05/30/2028 05/30/2018 Insurance [facility] [id number] Care Teams Armature Rewinder Relationship Specialty Start Date End Date Jelani Reis MD PCP - General Internal Medicine 09/11/23
--- OUTSIDE RECORDS SUMMARY | 2025-01-13 12:56 | XMS_ITS | Clinical Summary ---
Author Organization [facility] Address [address] [place] [address] Phone Care Team Providers Care Analytics Intern Name Role Phone Provider, Not On File [...] Health Maintenance Due Date Last Done Comments Hepatitis C Virus (HCV) Screening 1958 Cologuard 2003 Colonoscopy 2003 Colorectal Cancer Screening 2003 Immunochemical Fecal Occult Blood 2003 Pneumococcal Immunization (50+ years) (1 of 1 - PCV) 2008 Zoster Immunization (1 of 2) 2008 SARS-COV-2 Immunization ( season) 2024 05/04/2021, 09/10/2020, 08/13/2020 Influenza Immunization (#1) 02/16/202505/18, 2017, 07/04/2016, Additional history exists Respiratory Syncytial Virus (RSV) Immunization (Adult) (1 - 1-dose 75+ series) 2033 DTaP/Tdap/Td Immunization Discontinued 05/30/2018 TdaP Immunization Completed 05/30/2018 Hepatitis B Immunization Aged Out No longer eligible based on patient's age to complete this topic Human Papillomavirus (HPV) Immunization Aged Out No longer eligible based on patient's age to complete this topic Meningococcal Immunization (ACWY) Aged Out No longer eligible based on patient's age to complete this topic Rotavirus Immunization Aged Out No lo nger eligible based on patient's age to complete this topic Insurance MEDICARE Member Subscriber Plan / Payer (Ef fective for All Dates) Name:Neha Garcia Member ID:[id number] Relation to Subscriber:Self Name:Neha Garcia Subscriber ID:[id number] Payer ID:[id number] Group ID:[id number] Type:Not on file Address: [facility] [address] [facility] [employer] [facility] [place] [address] [employer] SENIOR SUPPLEMENTAL Care Teams Analytics Intern Relationship Specialty Start Date End Date Provider, Not On File PA PCP - General 09/23/18
--- OUTSIDE RECORDS SUMMARY | 2025-01-13 12:56 | XMS_ITS | Clinical Summary ---
Author Organization [facility] Facility Address [address] [address] Care Team Providers Care Racking Machine Operator Name Role Phone Unavailable Primary Care Provider [...] Colorectal Cancer Screening: Sigmoidoscopy 2007 Pneumococcal Vaccine: 50+ Ye ars (1 of 1 - PCV) 2008 Influenza Vaccine (#1) 2025 Hepatitis B Vaccine Aged Out No longe r eligible based on patient's age to complete this topic
--- OUTSIDE RECORDS SUMMARY | 2025-01-13 12:56 | XMS_ITS | Encounter Summary ---
Author Organization [facility] Address [address] [place] [address] Phone Care Team Providers Care Broodmare Barn Groom Name Role Phone Unavailable Primary Care Provider Unavailabl e Encounter Details Date Type Department Care Team (Late st Contact Info) Description 07/18/2021 Documentation Only [facility], [facility] [address] [facility] [address] [place] [address] Scan, Generic Provider Social History [...]
--- OUTSIDE RECORDS SUMMARY | 2025-01-13 12:56 | XMS_ITS ---
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 On arrival still [...] on Vancomycin and aztreonam and transferred to [facility] for further care. On arrival still [...] (01/21/2021): Added automatically from request for surgery [id number] Encounter for preprocedural cardiovascular exami nation 09/16/2020 [...] Herpes zoster 11/28/2018 Osteomyelitis of shoulder region 11/28/2018 Pancreatitis 11/28/2018 Spinal stenosis 11/28/2018 Type 2 diabetes mellitus 11/28/2018 Assessment & Plan (02/15/2021 3:21 PM CDT): F/b Dr. Cao at [facility]. Last A1C is 7.7% on 01/17/21. On [...] 2:04 PM CDT): F/b Dr. Cao at [facility]. Last A1C is 7.7% on 01/17/21. On [...] 6:27 PM CDT): F/b Dr. Cao at [facility]. Last A1C is 7.7% on 01/17/21. On [...] for further titration -Please contact the Medicine Government Relations Director if the pump becomes unattached, the patient is expected to be NPO, or the patient is too sedated to eat. 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 ([facility]) 04/17/2016 Overview (09/22/2016): Primary malignant neoplasm of upper outer quadrant of female breast Personal history of primary malignant neoplasm o f breast 04/17/2016 Overview (09/22/2016): Personal history of primary malignant neoplasm of breast Morbid obesity ([facility]) 01/01/2012 Overview (09/28/2017): Description: Bariatric Surg scheduled w/ Stacey, 01/27 DANIEL on CPAP 01/01/2012 Hypertension 01/01/2012 [...] 02/09/2011 Benign paroxysmal positional vertigo 12/08/2010 Current Treatment and Therapy Plans No current plan information found. Past Treatment and Therapy Plans No past plan information found. Lifetime Dose Tracking * Chemical Lifetime Dose Automatic Entry Manual Entr y Fluoro Time 0.45 minutes 0.45 minutes 0 minutes Air kerma at the reference point (Ka,r) 0.09 mGy 0 .09 mGy 0 mGy DLP 1,036 mGycm 1,036 mGycm 0 mGycm
--- OUTSIDE RECORDS SUMMARY | 2025-01-13 12:56 | XMS_ITS | Continuity of Care Document ---
Author Organization [facility] Address [address] [place] [address] [place] [address] Phone Care Team Providers Care Database Administration Project Manager Name Role Phone Gordo Louis Unavailable Unavailable Procedures Procedure Date Eye Exam & Treatment Dilated Retinal Exam W Interpretation Mn Refraction Office/outpatient Visit, Est Dilated Retinal Exam W Interpretation Mn No Evidence Of Retinopathy In Prior Year No Script Eye Exam & Treatment Advance Directives Directive Yes / No Effective Date File Name No Information Encounters Encounter Description Practice Location Reason(s) For Visit Diagnoses Date Provider Providers Copied on Encounter [facility], [address] [place] [address] [address], [place], [place], [id number], [place] tel:[phone] [facility] No Information 3-201 0 Krishnasamy Gordo. [address] [facility] [address], [place], [address], [place]. tel:[phone] Office/outpat ient Visit, [facility], [address] [place] [address] [address], [place], [place], [id number], [place] tel:[phone] [facility] No Information 7-200 9 Krishnasamy Gordo. [address] [facility] [address], [place], [address], [place]. tel:[phone] [facility], [address], [place], [place], [address], [place] tel:[phone] [facility] No Information [address] Angie Dotson. [address] [facility], [address], [place], [place], [address], [place]. tel:[phone] Family History Family Member Type Diagnosis Age At Onset No Information Payers Payer name Insurance type Covered libertarian ID Authoriza tion(s) Medicare [facility] [id number] Social History Type Description Quantity Date Captured [...]
--- OUTSIDE RECORDS SUMMARY | 2025-01-13 12:56 | XMS_ITS | Referral Summary ---
Author Organization [facility] Address [address] [place] [address] Care Team Providers Care Steam Conditioner Operator Name Role Phone Micha Reis MD Primary Care Provide r Allergies Active Allergy Reactions Criticality Noted Date Comments Clindamycin Other (See comments) Low 04/23/2023 Morphine Other (See comments) Low 04/23/2023 Penicillins Hives,Other (See comments) Low Reaction: Reaction: Hives, , Medications calcium carbonate-vitam in D3 (CALCIUM 600 [...] on Vancomycin and aztreonam and transferred to [facility] for further care. On arrival still [...] on Vancomycin and aztreonam and transferred to [facility] for further care. On arrival still [...] (01/21/2021): Added automatically from request for surgery [id number] Encounter for preprocedural cardiovascular exami nation 09/16/2020 [...] PM CDT): F/b Dr. Cao at [facility]. Last A1C is 7.7% on [...] 2:04 PM CDT): F/b Dr. Cao at [facility]. Last A1C is 7.7% on 01/17/21. On [...] 6:27 PM CDT): F/b Dr. Cao at [facility]. Last A1C is 7.7% on 01/17/21. On [...] for further titration -Please contact the Medicine Department Clinician if the pump becomes unattached, the patient [...] Overview (09/28/2017): Description: Bariatric Surg scheduled w/ Nayon, 01/27 DANIEL on CPAP 01/01/2012 Hypertension 01/01/2012 [...] 02/09/2011 Benign paroxysmal positional vertigo 12/08/2010 Immunizations Immunization Administration Dates Next Due Influenza, Quadrivalent, Spl [...] on file Legal Sex Female 12:45 PM BAGGAGE HANDLING SUPERVISOR Gender Identity Not on file Sexual Orientation Straight 11/07/2020 3: 22 PM CDT Last Filed Vital Signs Vital Sign Reading Time Taken Comments Blood Pressure 130/76 03/02/2021 2:29 PM CDT Pulse 84 03/02/2021 2:29 PM CDT Temperature 36.3 C (97.4 F) 03/02/2021 2:29 PM CDT Respiratory Rate 18 03/02/2021 2:29 PM CDT Oxygen Saturation 95% 03/02/2021 2:29 PM CDT Inhaled Oxygen Concentration - - Weight 103.1 kg (227 lb 6.4 oz) 023 10:48 AM BAGGAGE HANDLING SUPERVISOR Height 161.3 cm (5' 3.5) 04/23/2023 10 :48 AM BAGGAGE HANDLING SUPERVISOR Body Mass Index 39.65 04/23/2023 10:48 AM BAGGAGE HANDLING SUPERVISOR Plan of Treatment Not on file Medical Devices Implanted Type Area Hot Metal Mixer Operator Helper Device Identifier Shelf Expiration Date Model / Serial / Lot [employer] [id number] Comprehensive Mini Taper Adapter Baseplate Glenoid Sterile Latex - [id number] - [id number] Implanted:Qty: 1 on 02/11/2021 by Oneal Martinez MD at [facility] Other - see comments Right: Shoulder [employer] [id number] 12/14/2030 [id number] / [id number] / [id number] Description:Mini Taper Adapt er [employer] [id number] 12mm 130mm Shoulder Stem Humeral Trabecular Metal Tivanium - S*+[id number]* - [id number] Implanted:Qty: 1 on 02/11/2021 by Oneal Martinez MD at [facility] Other - see comments Right: Shoulder [employer] [id number] 01/10/2031 [id number] / *[id number] * / [id number] Description:Stem [employer] [id number] 36mm Reverse Humerus 7d +0mm Offset Standard Liner Shoulder - S*+[id number] [id number]* - [id number] Implanted:Qty: 1 on 02/11/2021 by Oneal Martinez MD at [facility] Other - see comments Right: Shoulder [employer] [id number] 10/05/2028 [id number] / *+[id number] 795333/[id number]* / [id number] Description:Reverse Shoulder Liner [employer] [id number] Comprehensive Fast Guide Baseplate Glenoid Sterile Latex Free - [id number] - [id number] Implanted:Qty: 1 on 02/11/2021 by Oneal Martinez MD at [facility] Other - see comments Right: Shoulder [employer] [id number] 07/15/2021 [id number] / [id number] / [id number] Description:VRS Glenoid [employer] 505820 Comprehensive Versa-Dial 36mm Glenosphere Color Coded Shoulder - [id number] 180 - [id number] Implanted:Qty: 1 on 02/11/2021 by Oneal Martinez MD at [facility] Other - see comments Right: Shoulder [employer] [id number] 12/09/2030 230176 / [id number] / [id number] Description:Glenosphere [employer] 588581 3.2mm Central Screw Bit Drill Comprehensive Reverse Glenoid - S0 - [id number] Implanted:Qty: 1 on 02/11/2021 by Oneal Martinez MD at [facility] Screw Right: Shoulder [employer] 12/09/2030 [id number] / 0 / [id number] Description:Central Screw Dr ill Bit [employer] 670075 2.7mm Peripheral Screw Bit Drill Comprehensive Reverse Glenoid - S0 - [id number] Implanted:Qty: 1 on 02/11/2021 by Oneal Martinez MD at [facility] Screw Right: Shoulder [employer] 12/16/2030 [id number] / 0 / [id number] Description:Peripheral Screw Drill Bit [employer] 590060 Comprehensive 6.5mm 35mm Central Hexagonal 3.5mm Screw Bone - [id number] 110 - [id number] Implanted:Qty: 1 on 02/11/2021 by Oneal Martinez MD at [facility] Screw Right: Shoulder [employer] [id number] 08/18/2030 787686 / [id number] / [id number] [employer] 380807 Comprehensive 4.75mm 45mm Fix Angle Lock Hexagonal 3.5mm Screw - S0 - [id number] Implanted:Qty: 1 on 02/11/2021 by Oneal Martinez MD at [facility] Screw Right: Shoulder [employer] 06/17/2023 [id number] / 0 / [id number] [employer] [id number] Comprehensive 4.75mm 20mm Fix Angle Lock Hexagonal 3.5mm Screw - [id number] 790 - [id number] Implanted:Qty: 1 on 02/11/2021 by Oneal Martinez MD at [facility] Screw Right: Shoulder [employer] [id number] 11/09/2030 634184 / [id number] / [id number] [employer] 680846 Comprehensive 4.75mm 20mm Fix Angle Lock Hexagonal 3.5mm Screw - [id number] 680 - [id number] Implanted:Qty: 1 on 02/11/2021 by Oneal Martinez MD at [facility] Screw Right: Shoulder [employer] [id number] 11/07/2030 507632 / [id number] / [id number] [employer] 829671 Comprehensive 4.75mm 35mm Fix Angle Lock Hexagonal 3.5mm Screw - [id number] 070 - [id number] Implanted:Qty: 1 on 02/11/2021 by Oneal Martinez MD at [facility] Screw Right: Shoulder [employer] [id number] 05/12/2030 718969 / [id number] / [id number] Procedures Procedure Name Priority Date/Time Associated Diagnosis Comments EGFR Routine 02/15/2021 4:09 AM CDT from Last 3 Months or Most Recently Relevant to Health Maintenance Results * eGFR (02/15/2021 4:09 AM CDT) eGFR 93 mL/min/1.7 3 m2 ZAY GRIDER Comment: Interpretive Data Reference Interval Normal >/= 90 mL/min/1.73m2 Mildly decreased* 60 - 89 mL/min/1.73m2 Mildly to moderately decreased 45 - 59 mL/min/1.73m2 Moderately to severely decreased 30 - 44 mL/min/1.73m2 Severely decreased 15 - 29 mL/min/1.73m2 Kidney Failure < 15 mL/min/1.73m2 *Relative to young adult level Estimated glomerular [...] CDT 02/15/2021 4:13 AM CDT us Marlene Granado NP LAB BLOOD ORDERABLES Fin al Result ZAY [facility]NELLY[facility] [address] [facility]. [place] [address] from Last 3 Months or Most Recently Relevant to Health Maintenance Insurance [employer] SENIOR SUPPLEMENT [address] HMO REF UHC MDCR HMO REF UHC MEDICARE ADVANTAGE Advance Directives For more information, please contact: [phone] * Full Code (Latest Code Status on File) Date Activated Date Inactivated Comments 02/14/2021 1:33 PM 02/15/2021 11:02 PM * Full Code Date Activated Date Inactivated Comments 02/11/2021 5:31 PM 02/12/2021 5:13 PM Care Teams Steam Conditioner Operator Relationship Specialty Start Date End Date Micha Reis MD PCP - General Internal Medicine 11/28/18
--- OUTSIDE RECORDS SUMMARY | 2025-01-13 12:56 | XMS_ITS | Clinical Summary ---
Author Organization [facility] Address [address] [place] [address] Care Team Providers Care Electric Motor Control Assembler Name Role Phone Micha Reis MD Primary [...] on Vancomycin and aztreonam and transferred to [facility] for further care. On arrival still [...] on Vancomycin and aztreonam and transferred to [facility] for further care. On arrival still [...] (01/21/2021): Added automatically from request for surgery [id number] Encounter for preprocedural cardiovascular exami nation 09/16/2020 [...] 3:21 PM CDT): F/b Dr. Cao at [facility]. Last A1C is 7.7% on [...] for further titration -Please contact the Medicine Manager Report if the pump becomes unattached, the patient [...] infe ction MRSA History of radiation therapy 2006 janay ast r Personal history of chemotherapy [...] on file Legal Sex Female 12:45 PM BAG TESTER Gender Identity Not on file Sexual Orientation [...] (227 lb 6.4 oz) 023 10:48 AM BAG TESTER Height 161.3 cm (5' 3.5) 04/23/2023 10 :48 AM BAG TESTER Body Mass Index 39.65 04/23/2023 10:48 AM BAG TESTER Plan of Treatment Health Maintenance Due Date Last Done Comments Albumin Creatinine Ratio, Urine 1958 Breast Cancer Screening-Mammogram 1958 Colon Cancer Screening-Colonoscopy 1958 Depression Screening 1958 Hemoglobin A1C 1958 Hepatitis C Screening 1958 Osteoporosis Screening-Bone Density Scan 1958 Dilated Eye Exam 1958 Foot Exam 1958 Lipid Panel 1958 Hepatitis B Screening 1976 Pneumococcal vaccine 65+ (1 of 2 - PCV) 1977 Zoster Vaccine (1 of 2) 2008 Fall Risk Assessment 02/15/2022 02/15/2021 eGFR 02/15/2022 02/15/2021, 01/17, 02/12/2021, Additional history exists Well Visit 65+ 2023 Covid-19 Vaccine (2023-2 5 season) 2024 05/05/2021, 09/10/2020, 09/10/2020, Additional history exists Influenza Vaccine (#1) 2025 , 05/04/2021, 04/30/2019, Additional history exists DTaP/Tdap/Td Vaccine (2 - Td or Tdap) 05/30/2028 05/30/2018 Medical Devices Implanted Type Area Barman Device Identifier Shelf Expiration Date Model / Serial / Lot [employer] [id number] Comprehensive Mini Taper Adapter Baseplate Glenoid Sterile Latex - [id number] 380 - [id number] Implanted:Qty: 1 on 02/11/2021 by Oneal Martinez MD at [facility] Other - see comments Right: Shoulder [employer] [id number] 12/14/2030 [id number] / [id number] / [id number] Description:Mini Taper Adapt er [employer] [id number] 12mm 130mm Shoulder Stem Humeral Trabecular Metal Tivanium - S*+[id number]/[id number]* - [id number] Implanted:Qty: 1 on 02/11/2021 by Oneal Martinez MD at [facility] Other - see comments Right: Shoulder [employer] [id number] 01/10/2031 [id number] / *[id number] * / [id number] Description:Stem [employer] [id number] 36mm Reverse Humerus 7d +0mm Offset Standard Liner Shoulder - S*+[id number]* - [id number] Implanted:Qty: 1 on 02/11/2021 by Oneal Martinez MD at [facility] Other - see comments Right: Shoulder [employer] [id number] 10/05/2028 [id number] / *[id number]* / [id number] Description:Reverse Shoulder Liner [employer] [id number] Comprehensive Fast Guide Baseplate Glenoid Sterile Latex Free - [id number] - [id number] Implanted:Qty: 1 on 02/11/2021 by Oneal Martinez MD at [facility] Other - see comments Right: Shoulder [employer] [id number] 07/15/2021 [id number] / [id number] / [id number] Description:VRS Glenoid [employer] 702277 Comprehensive Versa-Dial 36mm Glenosphere Color Coded Shoulder - [id number] 180 - [id number] Implanted:Qty: 1 on 02/11/2021 by Oneal Martinez MD at [facility] Other - see comments Right: Shoulder [employer] [id number] 12/09/2030 702955 / [id number] / [id number] Description:Glenosphere [employer] 815132 3.2mm Central Screw Bit Drill Comprehensive Reverse Glenoid - S0 - [id number] Implanted:Qty: 1 on 02/11/2021 by Oneal Martinez MD at [facility] Screw Right: Shoulder [employer] 12/09/2030 [id number] / 0 / [id number] Description:Central Screw Dr ill Bit [employer] 507421 2.7mm Peripheral Screw Bit Drill Comprehensive Reverse Glenoid - S0 - [id number] Implanted:Qty: 1 on 02/11/2021 by Oneal Martinez MD at [facility] Screw Right: Shoulder [employer] 12/16/2030 [id number] / 0 / [id number] Description:Peripheral Screw Drill Bit [employer] 246333 Comprehensive 6.5mm 35mm Central Hexagonal 3.5mm Screw Bone - [id number] 110 - [id number] Implanted:Qty: 1 on 02/11/2021 by Oneal Martinez MD at [facility] Screw Right: Shoulder [employer] [id number] 08/18/2030 769547 / [id number] / [id number] [employer] 182398 Comprehensive 4.75mm 45mm Fix Angle Lock Hexagonal 3.5mm Screw - S0 - [id number] Implanted:Qty: 1 on 02/11/2021 by Oneal Martinez MD at [facility] Screw Right: Shoulder [employer] 06/17/2023 [id number] / 0 / [id number] [employer] 900697 Comprehensive 4.75mm 20mm Fix Angle Lock Hexagonal 3.5mm Screw - [id number] 790 - [id number] Implanted:Qty: 1 on 02/11/2021 by Oneal Martinez MD at [facility] Screw Right: Shoulder [employer] [id number] 11/09/2030 205198 / [id number] / [id number] [employer] 236798 Comprehensive 4.75mm 20mm Fix Angle Lock Hexagonal 3.5mm Screw - [id number] 680 - [id number] Implanted:Qty: 1 on 02/11/2021 by Oneal Martinez MD at [facility] Screw Right: Shoulder [employer] [id number] 11/07/2030 923320 / [id number] / [id number] [employer] 730574 Comprehensive 4.75mm 35mm Fix Angle Lock Hexagonal 3.5mm Screw - [id number] 070 - [id number] Implanted:Qty: 1 on 02/11/2021 by Oneal Martinez MD at [facility] Screw Right: Shoulder [employer] [id number] 05/12/2030 301699 / [id number] / [id number] Procedures Procedure Name Priority Date/Time Associated Diagnosis Comments EGFR Routine 02/15/2021 4:09 AM CDT from Last 3 Months or Most Recently Relevant to Health Maintenance Results * eGFR (02/15/2021 4:09 AM CDT) eGFR 93 mL/min/1.7 3 m2 [facility] Comment: Interpretive Data Reference Interval Normal >/= [...] 02/15/2021 4:13 AM CDT us Marlene Granado COMMUNITY ENGAGEMENT REPRESENTATIVE LAB BLOOD ORDERABLES Fin al Result Performing Organization Address City/State/[facility] Phone Number [facility] [address] [facility] [address] from Last 3 Months or Most Recently Relevant to Health Maintenance Insurance [facility] MEDICARE [facility] Address: [facility] [address] [place] [address] [employer] SENIOR SUPPLEMENT [address] [place] HMO REF [facility] Address: [address] [address] [employer]CR HMO REF [facility] Address: [address] [address] MEDICARE ADVANTAGE [facility] Address: [place] [id number] Advance Directives For more information, please contact: [phone] * Full Code (Latest Code Status on File) Date Activated Date Inactivated Comments 02/14/2021 1:33 PM 02/15/2021 11:02 PM * Full Code Date Activated Date Inactivated Comments 02/11/2021 5:31 PM 02/12/2021 5:13 PM Care Teams Electric Motor Control Assembler Relationship Specialty Start Date End Date Micha Reis MD [phone] (work) PCP - General Internal Medicine 11/28/18
--- OUTSIDE RECORDS SUMMARY | 2025-01-13 12:56 | XMS_ITS | Data Portability ---
Author Organization [facility], Main Office Address [address] [place] [address] Care Team Providers Care Food Technology Teacher Name Role Phone CALLIE REIS Primary Care Provider CALLIE REIS Referring Provider BRYANT FARLEY Computed Tomography Technologist DAISY FARLEY Respiratory Therapy Assistant Assessment Encounter Date Assessment Date Assessment LastModified by Organization Details LastModified Time 11/21/2023 11/21/2023 04/28/2022: CBC: WNL Urine micro [...] were reviewed and explained to the patient: [facility] split night sleep study 12/12/19 AHI = [...] carrier. Patient will setup an appointment with [facility] for supplies and pressure adjustments. A major [...] management. Follow-up: 1 week after re-titration study [email or web address] Not available 07/15/2024 10:59:56 08/06/2024 08/06/2024 04/28/2022: CBC: WNL Urine micro alb 34.4 [...] Addendum: 04/11/2024 03/19/2024: Dr Valenzuela Gluc 123 07/23/2023: A1C 6.4 07/23/2024: Dr Valenzuela GFR 55, AST 49 Not available 08/06/2024 15:22:55 Plan of Treatment Reminders Order Date Submit Date Provider Last Modified By Organization Details Last Modified Time Details Appointments Follow Up 15 2024 10:30A M Callie perez MD Not available Not available Not available Lab lipid panel, serum 2024 025 [facility], [address], [place], [address], 08/06/2024 16:20:43 CMP, serum or plasma 2024 025 [facility] [facility], [address], [place], [address], 08/06/2024 16:20:43 CBC w/ auto diff 2024 025 [employer] [facility], [address], [place], [address], 08/06/2024 16:20:42 TSH + free T4, serum 2024 025 [place] [address] [facility], [address], [place], [address], 08/13/2024 09:57:20 vitamin D, 25-hydrox y, total, serum 2024 025 [employer] [facility], [address], [place], [address], 08/06/2024 16:20:43 glycohemo globin, total, blood 2024 025 [facility], [address], [place], [address], 08/06/2024 16:20:42 microalbu min, urine 2024 025 [facility], [address], [place], [address], 08/06/2024 16:20:43 vitamin B12 + folate, serum or blood 2024 025 [facility], [address], [place], [address], 08/06/2024 16:20:43 lipid panel, serum 2023 024 [facility] (Lab), [address] [place], [address], 07/25/2024 16:36:15 CMP, serum or plasma 2023 024 [facility] (Lab), [address] [place], [address], 07/25/2024 16:36:16 CBC w/ auto diff 2023 024 [facility] (Lab), [address] [place], [address], 07/25/2024 16:36:13 TSH, serum or plasma 2023 024 [facility] (Lab), [address] [place], [address], 07/25/2024 16:36:17 vitamin D, 25-hydrox y, total, serum [address] (Lab), [address] [place], [address], 09/15/2024 17:03:45 glycohemo globin, total, blood 2023 024 [facility] (Lab), [address] [place], [address], 07/25/2024 16:36:19 microalbu min, urine [address] (Lab), [address] [place], [address], 09/15/2024 17:03:45 vitamin B12 + folate, serum or blood [address] (Lab), [address] [place], [address], 09/15/2024 17:03:46 lipid panel, serum [address] (Lab), [address] [place], [address], 05/19/2024 15:19:26 CMP, serum or plasma 2023 024 [facility] (Lab), [address] [place], [address], 03/19/2024 17:53:29 CBC w/ auto diff 2023 024 [facility] (Lab), [address] [place], [address], 12/03/2023 12:13:41 TSH, serum or plasma [address] (Lab), [address] [place], [address], 05/19/2024 15:19:27 vitamin D, 25-hydrox y, total, serum [address] (Lab), [address] [place], [address], 05/19/2024 15:19:27 glycohemo globin, total, blood [address] (Lab), [address] [place], [address], 05/19/2024 15:19:26 microalbu min, urine [facility]23 [facility] [address] [place], [address], 03/17/2024 09:24:38 vitamin B12 + folate, serum or blood [address] (Lab), [address] [place], [address], 05/19/2024 15:19:27 Referral nephrolog ist referral - Please call patient to schedule an appointme nt. Thank you. 2024 025 mary grace Farley MD (Nephrology, [address], [address], [place], [address], 11/18/2024 08:59:32 cardiolog ist referral - Please call patient to schedule an appointme nt. Thank you. 2024 025 [place], [address], [address], [place], [address], 11/18/2024 08:59:32 diabetic ophthalmo logy referral - Please call patient to schedule an appointme nt. Thank you. 2024 025 mary grace Tucker, [address] [facility], [place], [address], 11/18/2024 08:59:31 podiatris t referral - Please call patient to schedule an appointme nt. Thank you. 2024 025 mary grace Villareal DPM, [address], [address], [place], [address], 11/18/2024 08:59:32 gastroent erologist referral - Please call patient to schedule an appointme nt. Thank you. 2024 025 mary grace Colbert MD, [address], [address], [place], [address], 11/19/2024 10:05:34 nephrolog ist referral 2023 024 [email or web address] Bryant Farley MD (Nephrology, [address], [address], [place], [address], 04/02/2024 16:11:14 cardiolog ist referral 2023 024 [email or web address] [place], [address], [address], [place], [address], 04/16/2024 08:50:21 diabetic ophthalmo logy referral 2023 024 [email or web address] 2 Magno Tucker, [address] [facility], [place], [address], 09/15/2024 09:03:52 podiatris t referral 2023 024 Randall Vilalreal DPM, [address], [address], [place], [address], 04/02/2024 16:12:40 gastroent erologist referral 2023 024 ARNULFO Colbert MD, [address], [address], [place], [address], 04/17/2024 19:07:44 nephrolog ist referral 2023 024 [email or web address] Bryant Farley MD (Nephrology, [address], [address], [place], [address], 05/19/2024 15:19:57 cardiolog ist referral 2023 024 [place], [address], [address], [place], [address], 12/18/2023 12:49:18 diabetic ophthalmo logy referral 2023 024 [email or web address] Magno Tucker, [address] [facility], [place], [address], 05/19/2024 15:19:55 podiatris t referral 2023 024 Randall Villareal DPM, [address] [facility], [address], [place], [address], 05/19/2024 15:19:57 endocrino logy referral 2023 024 [email or web address] Jose Garrett MD, [address], [place], [address], 05/19/2024 15:19:58 Procedures None recorded. Surgeries None recorded. Imaging polysomno gram, titration study - Please call patient to schedule. CPAP, BPAP, BPAP S/T, BPAP ASV titration , EF 63% as of 2020 025 [place] [address] [facility] ([facility]), [address] [facility], [place], [address], 08/14/2024 16:51:26 [place], liver [address] ([facility]), [address] [place], [address], 07/16/2024 12:34:33 Medication Orders None recorded. Patient TargetsNo targets recorded. Patient Instructions Encounter Date Encounter Id Patient Instructions Last Modified By Organization Details Last Modified Time 11/21/2023 [id number] dementia rating scale-2* [email or web address] Not available 11/21/2023 13:27:59 alcohol misuse* [email or web address] Not available 11/21/2023 13:27:45 depression screening* [email or web address] Not available 11/21/2023 13:27:30 multi-dimensiona l health assessment questionnaire* Not available 11/21/2023 13:29:22 advance directiv es: care instructions [email or web address] Not available 11/21/2023 13:13:41 [place] [facility] Direct[facility] Not available 11/21/2023 13:13:42 advance care planning: care instructions [facility] Not available 11/21/2023 13:13:42 Personalized a lth Plan and Screening Recommendations Advance Directives - Do you have one? Advance Directives - Do we have your advance directive on file in your health record? Primary Prevention/Interven tion (prevents or decreases the chance of common diseases from occurring) Smoking Risk: Non Smoker Alcohol Misuse Screening: Negative Weight: Physical activity: Nutrition: Fall Risk (screened today): Vaccines Pneumococcal: Influenza: Chronic Disease Risks Stroke: Active diagnosis, Continue current treatment plan Heart Attack: Active diagnosis, Continue current treatment plan Clogging of the Arteries: Active diagnosis, Continue current treatment plan Diabetes: Active diagnosis, Continue current treatment plan Secondary Prevention/Interven tion (detects treatable diseases before they may cause symptoms, disability, or ) Breast Cancer Screening with mammogram: Cervical/Uterine/Ov titus Cancer Screening: Osteoporosis Screening: Date Screening Last Performed: Colon Cancer Screening: Date Screening Last Performed: Eye Disease Screening: Your next exam in: Dementia Risk: Depression Screening: Active diagnosis, Continue current treatment plan [email or web address] Not available 11/16/2023 10:11:46 Reason for Referral Diabetic Ophthalmology Refer ral for Type 2 diabetes mellitus without complication Referring Physician: Callie Reis, Internal Medicine, Encounter Date: 11/21/2023 Computed Tomography Technologist Referral for Ch ronic kidney disease Referring Physician: Callie Reis Internal Medicine, Encounter Date: 11/21/2023 House Mover Referral for Type 2 diabetes mellitus without complication Referring Physician: Callie Reis Internal Medicine, Encounter Date: 11/21/2023 Endocrinology Referral for T ype 2 diabetes mellitus without complication Referring Physician: Callie Reis Internal Medicine, Encounter Date: 11/21/2023 Respiratory Therapy Assistant Referral for Es sential hypertension Referring Physician: Callie Reis Internal Medicine, Encounter Date: 11/21/2023 Diabetic Ophthalmology Refer ral for Type 2 diabetes mellitus without complication Referring Physician: Callie Reis Internal Medicine, Encounter Date: 03/19/2024 Computed Tomography Technologist Referral for Ch ronic kidney disease Referring Physician: Sumit London Medicine, Encounter Date: 03/19/2024 House Mover Referral for Type 2 diabetes mellitus without complication Referring Physician: Sumit London Medicine, Encounter Date: 03/19/2024 Respiratory Therapy Assistant Referral for Es sential hypertension Referring Physician: Sumit London Medicine, Encounter Date: 03/19/2024 Video Game Developer Referral for Liver enzymes level above reference range Referring Physician: Sumit London Medicine, Encounter Date: 03/19/2024 Diabetic Ophthalmology Refer ral for Type 2 diabetes mellitus without complication Please call patient to schedule an appointment. Thank you. Referring Physician: Sumit London Medicine, Encounter Date: 08/06/2024 Computed Tomography Technologist Referral for Ch ronic kidney disease Please call patient to schedule an appointment. Thank you. Referring Physician: Sumit London, Encounter Date: 08/06/2024 House Mover Referral for Type 2 diabetes mellitus without complication Please call patient to schedule an appointment. Thank you. Referring Physician: Callie Reis, Internal Medicine, Encounter Date: 08/06/2024 Respiratory Therapy Assistant Referral for Es sential hypertension Please call patient to schedule an appointment. Thank you. Referring Physician: Callie Reis, Internal Medicine, Encounter Date: 08/06/2024 Video Game Developer Referral for Liver enzymes level above reference range Please call patient to schedule an appointment. Thank you. Referring Physician: Callie Reis, Internal Medicine, Encounter Date: 08/06/2024 Results Created Date Observation Date Name Description Value Unit Range Abnormal Flag Note LastModifiedBy Organization Detail LastModifiedTime 11/16/19 24 11/16/2023 CBC/C OMPLE TE BLD COUNT W/DIF F white blood cells 9.6 x10'3 /uL 4.2-10 .8 Not Available [facility] (Lab) [address] [place], [address], 11/16/2023 14:00:04 11/16/19 24 11/16/2023 CBC/C OMPLE TE BLD COUNT W/DIF F red blood cells 5.00 x10'6 /uL 3.80-5 .20 Not Available [facility] (Lab) [address] [place], [address], 11/16/2023 14:00:04 11/16/19 24 11/16/2023 CBC/C OMPLE TE BLD COUNT W/DIF F hemoglobin 14.6 g/dL 12.0-1 5.6 Not Available [facility] (Lab) [address] [place], [address], 11/16/2023 14:00:04 11/16/19 24 11/16/2023 CBC/C OMPLE TE BLD COUNT W/DIF F hematocrit 44.3 % 35.7-4 5.7 Not Available [facility] (Lab) [address] [place], [address], 11/16/2023 14:00:04 11/16/19 24 11/16/2023 CBC/C OMPLE TE BLD COUNT W/DIF F mean red cell volume 88.6 fL 82.0-9 9.0 Not Available [facility] (Lab) [address] [place], [address], 11/16/2023 14:00:04 11/16/19 24 11/16/2023 CBC/C OMPLE TE BLD COUNT W/DIF F mean red cell hemoglobin 29.2 pg 27.0-3 3.0 Not Available [facility] (Lab) [address] [place], [address], 11/16/2023 14:00:04 11/16/19 24 11/16/2023 CBC/C OMPLE TE BLD COUNT W/DIF F mean RBC HGB concentratio n 33.0 g/dL 31.0-3 6.0 Not Available [facility] (Lab) [address] [place], [address], 11/16/2023 14:00:04 11/16/19 24 11/16/2023 CBC/C OMPLE TE BLD COUNT W/DIF F red cell distribution width 13.2 % 11.8-1 5.5 Not Available [facility] (Lab) [address] [place], [address], 11/16/2023 14:00:04 11/16/19 24 11/16/2023 CBC/C OMPLE TE BLD COUNT W/DIF F platelets 225 x10'3 /uL 150-40 0 Not Available [facility] (Lab) [address] [place], [address], 11/16/2023 14:00:04 11/16/19 24 11/16/2023 CBC/C OMPLE TE BLD COUNT W/DIF F mean platelet volume 11.2 fL 9.0-12 .4 Not Available [facility] (Lab) [address] [place], [address], 11/16/2023 14:00:04 11/16/19 24 11/16/2023 CBC/C OMPLE TE BLD COUNT W/DIF F neutrophils 61.8 % 39.0-7 2.0 Not Available [facility] (Lab) [address] [place], [address], 11/16/2023 14:00:04 11/16/19 24 11/16/2023 CBC/C OMPLE TE BLD COUNT W/DIF F lymphocytes 28.4 % 16.0-4 7.0 Not Available [facility] (Lab) [address] [place], [address], 11/16/2023 14:00:04 11/16/19 24 11/16/2023 CBC/C OMPLE TE BLD COUNT W/DIF F monocytes 6.8 % 5.0-12 .0 Not Available [facility] (Lab) [address] [place], [address], 11/16/2023 14:00:04 11/16/19 24 11/16/2023 CBC/C OMPLE TE BLD COUNT W/DIF F eosinophils 2.1 % 1.0-7. 0 Not Available [facility] (Lab) [address] [place], [address], 11/16/2023 14:00:04 11/16/19 24 11/16/2023 CBC/C OMPLE TE BLD COUNT W/DIF F basophils 0.7 % 0.0-2. 0 Not Available [facility] (Lab) [address] [place], [address], 11/16/2023 14:00:04 11/16/19 24 11/16/2023 CBC/C OMPLE TE BLD COUNT W/DIF F immature granulocytes 0.2 % 0.00-0 .50 Not Available [facility] (Lab) [address] [place], [address], 11/16/2023 14:00:04 11/16/19 24 11/16/2023 CBC/C OMPLE TE BLD COUNT W/DIF F neutrophils, absolute count 5.94 x10'3 /uL 1.5-8. 0 Not Available [facility] (Lab) [address] [place], [address], 11/16/2023 14:00:04 11/16/19 24 11/16/2023 CBC/C OMPLE TE BLD COUNT W/DIF F lymphocytes, absolute count 2.73 x10'3 /uL 1.07-3 .43 Not Available [facility] (Lab) [address] [place], [address], 11/16/2023 14:00:04 11/16/19 24 11/16/2023 CBC/C OMPLE TE BLD COUNT W/DIF F monocytes, absolute count 0.65 x10'3 /uL 0.29-0 .99 Not Available [facility] (Lab) [address] [place], [address], 11/16/2023 14:00:04 11/16/19 24 11/16/2023 CBC/C OMPLE TE BLD COUNT W/DIF F eosinophils, absolute count 0.20 x10'3 /uL 0.02-0 .53 Not Available [facility] (Lab) [address] [place], [address], 11/16/2023 14:00:04 11/16/19 24 11/16/2023 CBC/C OMPLE TE BLD COUNT W/DIF F basophils, absolute count 0.07 x10'3 /uL 0.01-0 .08 Not Available [facility] (Lab) [address] [place], [address], 11/16/2023 14:00:04 11/16/19 24 11/16/2023 CBC/C OMPLE TE BLD COUNT W/DIF F immature granulocytes ,absolute 0.02 x10'3 /uL 0.00-0 .05 Not Available [facility] (Lab) [address] [place], [address], 11/16/2023 14:00:04 11/16/19 24 11/16/2023 CBC/C OMPLE TE BLD COUNT W/DIF F nucleated red blood cells 0.0 % -0 Not Available [facility] (Lab) [address] [place], [address], 11/16/2023 14:00:04 11/16/19 24 11/16/2023 CBC/C OMPLE TE BLD COUNT W/DIF F NRBC# 0.00 x10'3 /uL Not Available [facility] (Lab) [address] [place], [address], 11/16/2023 14:00:04 11/16/19 24 11/16/2023 LIPID PANEL cholesterol 99 mg/dL 140-19 9 low NIH AMISHA NSUS RECOM MENDA TION FOR CHRISTI STERO L: ADULT CHILD LOW RISK: <200 <170 BORDE RLINE : <200- 239 ----- HIGH RISK: >240 >200 Not Available [facility] (Lab) [address] [place], [address], 11/16/2023 14:14:17 11/16/19 24 11/16/2023 LIPID PANEL triglyceride s 147 mg/dL 0-150 NIH AMISHA NSUS REPOR T RECOM MENDA TION FOR TRIGL YCERI MAX: ADULT CHILD LOW RISK: <150 ----- BODER LINE: 150-1 99 ----- HIGH RISK: >200 ----- Not Available [facility] (Lab) [address] [place], [address], 11/16/2023 14:14:17 11/16/19 24 11/16/2023 LIPID PANEL HDL cholesterol 46 mg/dL 40- Not Available [facility] (Lab) [address] [place], [address], 11/16/2023 14:14:17 11/16/19 24 11/16/2023 LIPID PANEL [...] WILL NOT BE REPOR JORGE. Not Available [facility] (Lab) [address] [place], [address], 11/16/2023 14:14:17 11/16/19 24 11/16/2023 COMPR EHENS DENISE METAB OLIC PANEL sodium 140 mmol/ L 137-14 5 Not Available [facility] (Lab) [address] [place], [address], 11/16/2023 14:14:23 11/16/19 24 11/16/2023 COMPR EHENS DENISE METAB OLIC PANEL potassium 4.3 mmol/ L 3.5-5. 1 Not Available [facility] (Lab) [address] [place], [address], 11/16/2023 14:14:23 11/16/19 24 11/16/2023 COMPR EHENS DENISE METAB OLIC PANEL chloride 106 mmol/ L 98-107 Not Available [facility] (Lab) [address] [place], [address], 11/16/2023 14:14:23 11/16/19 24 11/16/2023 COMPR EHENS DENISE METAB OLIC PANEL carbon dioxide 31 mmol/ L 22-30 high Not Available [facility] (Lab) [address] [place], [address], 11/16/2023 14:14:23 11/16/19 24 11/16/2023 COMPR EHENS DENISE METAB OLIC PANEL anion gap 7.3 mmol/ L 14-22 low Not Available [facility] (Lab) [address] [place], [address], 11/16/2023 14:14:23 11/16/19 24 11/16/2023 COMPR EHENS DENISE METAB OLIC PANEL glucose 151 mg/dL 70-99 high Not Available [facility] (Lab) [address] [place], [address], 11/16/2023 14:14:23 11/16/19 24 11/16/2023 COMPR EHENS DENISE METAB OLIC PANEL BUN 16 mg/dL 8-19 Not Available [facility] (Lab) [address] [place], [address], 11/16/2023 14:14:23 11/16/19 24 11/16/2023 COMPR EHENS DENISE METAB OLIC PANEL creatinine 0.74 mg/dL 0.66-1 .25 Not Available [facility] (Lab) [address] [place], [address], 11/16/2023 14:14:23 11/16/19 24 11/16/2023 COMPR EHENS DENISE METAB OLIC PANEL GFR >60 Refer ence Range : Hickman ge GFR Healt hy Adult : >60 [...] or ethni c subgr oups, such as Hispa nics. Outsi de the valid ated shannan [...] calcu lator is avail able on the [facility] websi te: https ://misty w.tez valerio.o rg/pr ofess ional s/kdo qi/gf r_cal culat or Not Available [facility] (Lab) [address] [place], [address], 11/16/2023 14:14:23 11/16/19 24 11/16/2023 COMPR EHENS DENISE METAB OLIC PANEL alkaline phosphatase 99 U/L 38-126 Not Available [facility] (Lab) [address] [place], [address], 11/16/2023 14:14:23 11/16/19 24 11/16/2023 COMPR EHENS DENISE METAB OLIC PANEL alanine aminotransfe rase 33 U/L 0-35 Not Available [facility] (Lab) [address] [place], [address], 11/16/2023 14:14:23 11/16/19 24 11/16/2023 COMPR EHENS DENISE METAB OLIC PANEL aspartate aminotransfe rase 37 U/L 15-37 Not Available [facility] (Lab) [address] [place], [address], 11/16/2023 14:14:23 11/16/19 24 11/16/2023 COMPR EHENS DENISE METAB OLIC PANEL bilirubin, total 1.40 mg/dL 0.20-1 .30 high Not Available [facility] (Lab) [address] [place], [address], 11/16/2023 14:14:23 11/16/19 24 11/16/2023 COMPR EHENS DENISE METAB OLIC PANEL calcium 10.3 mg/dL 8.4-10 .2 high Not Available [facility] (Lab) [address] [place], [address], 11/16/2023 14:14:23 11/16/19 24 11/16/2023 COMPR EHENS DENISE METAB OLIC PANEL total protein 6.8 g/dL 6.3-8. 2 Not Available [facility] (Lab) [address] [place], [address], 11/16/2023 14:14:23 11/16/19 24 11/16/2023 COMPR EHENS DENISE METAB OLIC PANEL albumin 4.2 g/dL 3.0-4. 4 Not Available [facility] (Lab) [address] [place], [address], 11/16/2023 14:14:23 11/16/19 24 11/16/2023 COMPR EHENS DENISE METAB OLIC PANEL globulin 2.6 g/dL 2.6-4. 2 Not Available [facility] (Lab) [address] [place], [address], 11/16/2023 14:14:23 11/16/19 24 11/16/2023 COMPR EHENS DENISE METAB OLIC PANEL A/G ratio 1.6 ratio 1.0-2. 0 Not Available [facility] (Lab) [address] [place], [address], 11/16/2023 14:14:23 11/16/19 24 11/16/2023 MICRO ALBUM IN RANDO M URINE microalbumin , urine 7.8 mg/L 0.0-16 .6 Not Available [facility] (Lab) [address] [place], [address], 11/16/2023 14:33:14 11/16/19 24 11/16/2023 VITAM IN D 25-HY DROXY vd25oh 54.5 NG/mL 30-100 Vitam in D Statu s: Defic ient: <20 ng/mL Insuf ficie nt: 20-29 ng/mL Suffi cient : 30-10 0 ng/mL Not Available [facility] (Lab) [address] [place], [address], 11/16/2023 14:37:42 11/16/19 24 11/16/2023 TSH W/REF EFRAIN FT4 TSH with reflex free T4 1.410 uIU/m L 0.465- 4.680 Not Available [facility] (Lab) [address] [place], [address], 11/16/2023 14:50:12 11/16/19 24 11/16/2023 VITAM IN B12 (ANDREA JAMAL ) vb12 714 pg/mL 239-93 1 Not Available [facility] (Lab) [address] [place], [address], 11/16/2023 15:30:00 11/16/19 24 11/16/2023 FOLAT E, SERUM /PLAS MA folate >20.0 NG/mL 2.76-2 0.0 Not Available [facility] (Lab) [address] [place], [address], 11/16/2023 15:30:06 11/16/19 24 11/16/2023 HEMOG LOBIN A1C HA1C 6.4 % 4.0-6. 0 high Diabe rachel Scree aubree Crite nicky: <5.7% Consi stent with absen ce of diabe rachel 5.7-6 .4% Consi stent with incre ased risk for diabe rachel (pred iabet es) >OR=6 .5% Consi stent with diabe rachel REFER ENCE: Diabe rachel Care 39([facility] ppl.1 ):s13 -s22 Not Available [facility] (Lab) [address] [place], [address], 11/16/2023 21:41:34 03/14/20 24 03/14/2024 CBC/C OMPLE TE BLD COUNT W/DIF F white blood cells 9.2 x10'3 /uL 4.2-10 .8 Not Available [facility] (Lab) [address] [place], [address], 03/14/2024 15:20:45 03/14/20 24 03/14/2024 CBC/C OMPLE TE BLD COUNT W/DIF F red blood cells 5.24 x10'6 /uL 3.80-5 .20 high Not Available [facility] (Lab) [address] [place], [address], 03/14/2024 15:20:45 03/14/20 24 03/14/2024 CBC/C OMPLE TE BLD COUNT W/DIF F hemoglobin 14.9 g/dL 12.0-1 5.6 Not Available [facility] (Lab) [address] [place], [address], 03/14/2024 15:20:45 03/14/20 24 03/14/2024 CBC/C OMPLE TE BLD COUNT W/DIF F hematocrit 46.0 % 35.7-4 5.7 high Not Available [facility] (Lab) [address] [place], [address], 03/14/2024 15:20:45 03/14/20 24 03/14/2024 CBC/C OMPLE TE BLD COUNT W/DIF F mean red cell volume 87.8 fL 82.0-9 9.0 Not Available [facility] (Lab) [address] [place], [address], 03/14/2024 15:20:45 03/14/20 24 03/14/2024 CBC/C OMPLE TE BLD COUNT W/DIF F mean red cell hemoglobin 28.4 pg 27.0-3 3.0 Not Available [facility] (Lab) [address] [place], [address], 03/14/2024 15:20:45 03/14/20 24 03/14/2024 CBC/C OMPLE TE BLD COUNT W/DIF F mean RBC HGB concentratio n 32.4 g/dL 31.0-3 6.0 Not Available [facility] (Lab) [address] [place], [address], 03/14/2024 15:20:45 03/14/20 24 03/14/2024 CBC/C OMPLE TE BLD COUNT W/DIF F red cell distribution width 13.1 % 11.8-1 5.5 Not Available [facility] (Lab) [address] [place], [address], 03/14/2024 15:20:45 03/14/20 24 03/14/2024 CBC/C OMPLE TE BLD COUNT W/DIF F platelets 230 x10'3 /uL 150-40 0 Not Available [facility] (Lab) [address] [place], [address], 03/14/2024 15:20:45 03/14/20 24 03/14/2024 CBC/C OMPLE TE BLD COUNT W/DIF F mean platelet volume 11.0 fL 9.0-12 .4 Not Available [facility] (Lab) [address] [place], [address], 03/14/2024 15:20:45 03/14/20 24 03/14/2024 CBC/C OMPLE TE BLD COUNT W/DIF F neutrophils 64.5 % 39.0-7 2.0 Not Available [facility] (Lab) [address] [place], [address], 03/14/2024 15:20:45 03/14/20 24 03/14/2024 CBC/C OMPLE TE BLD COUNT W/DIF F lymphocytes 25.2 % 16.0-4 7.0 Not Available [facility] (Lab) [address] [place], [address], 03/14/2024 15:20:45 03/14/20 24 03/14/2024 CBC/C OMPLE TE BLD COUNT W/DIF F monocytes 7.1 % 5.0-12 .0 Not Available [facility] (Lab) [address] [place], [address], 03/14/2024 15:20:45 03/14/20 24 03/14/2024 CBC/C OMPLE TE BLD COUNT W/DIF F eosinophils 2.0 % 1.0-7. 0 Not Available [facility] (Lab) [address] [place], [address], 03/14/2024 15:20:45 03/14/20 24 03/14/2024 CBC/C OMPLE TE BLD COUNT W/DIF F basophils 1.0 % 0.0-2. 0 Not Available [facility] (Lab) [address] [place], [address], 03/14/2024 15:20:45 03/14/20 24 03/14/2024 CBC/C OMPLE TE BLD COUNT W/DIF F immature granulocytes 0.2 % 0.00-0 .50 Not Available [facility] (Lab) [address] [place], [address], 03/14/2024 15:20:45 03/14/20 24 03/14/2024 CBC/C OMPLE TE BLD COUNT W/DIF F neutrophils, absolute count 5.93 x10'3 /uL 1.5-8. 0 Not Available [facility] (Lab) [address] [place], [address], 03/14/2024 15:20:45 03/14/20 24 03/14/2024 CBC/C OMPLE TE BLD COUNT W/DIF F lymphocytes, absolute count 2.32 x10'3 /uL 1.07-3 .43 Not Available [facility] (Lab) [address] [place], [address], 03/14/2024 15:20:45 03/14/20 24 03/14/2024 CBC/C OMPLE TE BLD COUNT W/DIF F monocytes, absolute count 0.65 x10'3 /uL 0.29-0 .99 Not Available [facility] (Lab) [address] [place], [address], 03/14/2024 15:20:45 03/14/20 24 03/14/2024 CBC/C OMPLE TE BLD COUNT W/DIF F eosinophils, absolute count 0.18 x10'3 /uL 0.02-0 .53 Not Available [facility] (Lab) [address] [place], [address], 03/14/2024 15:20:45 03/14/20 24 03/14/2024 CBC/C OMPLE TE BLD COUNT W/DIF F basophils, absolute count 0.09 x10'3 /uL 0.01-0 .08 high Not Available [facility] (Lab) [address] [place], [address], 03/14/2024 15:20:45 03/14/20 24 03/14/2024 CBC/C OMPLE TE BLD COUNT W/DIF F immature granulocytes ,absolute 0.02 x10'3 /uL 0.00-0 .05 Not Available [facility] (Lab) [address] [place], [address], 03/14/2024 15:20:45 03/14/20 24 03/14/2024 CBC/C OMPLE TE BLD COUNT W/DIF F nucleated red blood cells 0.0 % -0 Not Available [facility] (Lab) [address] [place], [address], 03/14/2024 15:20:45 03/14/20 24 03/14/2024 CBC/C OMPLE TE BLD COUNT W/DIF F NRBC# 0.00 x10'3 /uL Not Available [facility] (Lab) [address] [place], [address], 03/14/2024 15:20:45 03/14/20 24 03/14/2024 LIPID PANEL cholesterol 92 mg/dL 140-19 9 low NIH AMISHA NSUS RECOM MENDA TION FOR CHRISTI STERO L: ADULT CHILD LOW RISK: <200 <170 BORDE RLINE : <200- 239 ----- HIGH RISK: >240 >200 Not Available [facility] (Lab) [address] [place], [address], 03/14/2024 15:37:22 03/14/20 24 03/14/2024 LIPID PANEL triglyceride s 94 mg/dL 0-150 NIH AMISHA NSUS REPOR T RECOM MENDA TION FOR TRIGL YCERI MAX: ADULT CHILD LOW RISK: <150 ----- BODER LINE: 150-1 99 ----- HIGH RISK: >200 ----- Not Available [facility] (Lab) [address] [place], [address], 03/14/2024 15:37:22 03/14/20 24 03/14/2024 LIPID PANEL HDL cholesterol 52 mg/dL 40- Not Available [facility] (Lab) [address] [place], [address], 03/14/2024 15:37:22 03/14/20 24 03/14/2024 LIPID PANEL LDL cholesterol, calculated 21 mg/dL 0-130 NIH AMISHA NSUS REPOR T [...] WILL NOT BE REPOR JORGE. Not Available [facility] (Lab) [address] [facility] [place], [address], 03/14/2024 15:37:22 03/14/20 24 03/14/2024 COMPR EHENS DENISE METAB OLIC PANEL sodium 138 mmol/ L 137-14 5 Not Available [facility] (Lab) [address] [place], [address], 03/14/2024 15:37:32 03/14/20 24 03/14/2024 COMPR EHENS DENISE METAB OLIC PANEL potassium 4.0 mmol/ L 3.5-5. 1 Not Available [facility] (Lab) [address] [place], [address], 03/14/2024 15:37:32 03/14/20 24 03/14/2024 COMPR EHENS DENISE METAB OLIC PANEL chloride 101 mmol/ L 98-107 Not Available [facility] (Lab) [address] [place], [address], 03/14/2024 15:37:32 03/14/20 24 03/14/2024 COMPR EHENS DENISE METAB OLIC PANEL carbon dioxide 30 mmol/ L 22-30 Not Available [facility] (Lab) [address] [place], [address], 03/14/2024 15:37:32 03/14/20 24 03/14/2024 COMPR EHENS DENISE METAB OLIC PANEL anion gap 11.0 mmol/ L 14-22 low Not Available [facility] (Lab) [address] [place], [address], 03/14/2024 15:37:32 03/14/20 24 03/14/2024 COMPR EHENS DENISE METAB OLIC PANEL glucose 103 mg/dL 70-99 high Not Available [facility] (Lab) [address] [place], [address], 03/14/2024 15:37:32 03/14/20 24 03/14/2024 COMPR EHENS DENISE METAB OLIC PANEL BUN 16 mg/dL 8-19 Not Available [facility] (Lab) [address] [place], [address], 03/14/2024 15:37:32 03/14/20 24 03/14/2024 COMPR EHENS DENISE METAB OLIC PANEL creatinine 0.84 mg/dL 0.66-1 .25 Not Available [facility] (Lab) [address] [place], [address], 03/14/2024 15:37:32 03/14/20 24 03/14/2024 COMPR EHENS DENISE METAB OLIC PANEL GFR >60 Refer ence Range : Hickman ge GFR Healt hy Adult : >60 [...] or ethni c subgr oups, such as ga nics. Outsi de the valid ated shannan [...] calcu lator is avail able on the F websi te: https :[email or web address] w.tez valerio.o rg/pr ofess ional s/kdo qi/gf r_cal culat or Not Available [facility] (Lab) [address] [place], [address], 03/14/2024 15:37:32 03/14/20 24 03/14/2024 COMPR EHENS DENISE METAB OLIC PANEL alkaline phosphatase 93 U/L 38-126 Not Available [facility] (Lab) [address] [place], [address], 03/14/2024 15:37:32 03/14/20 24 03/14/2024 COMPR EHENS DENISE METAB OLIC PANEL alanine aminotransfe rase 28 U/L 0-35 Not Available [facility] (Lab) [address] [facility] [place], [address], 03/14/2024 15:37:32 03/14/20 24 03/14/2024 COMPR EHENS DENISE METAB OLIC PANEL aspartate aminotransfe rase 50 U/L 15-37 high Not Available [facility] (Lab) [address] [place], [address], 03/14/2024 15:37:32 03/14/20 24 03/14/2024 COMPR EHENS DENISE METAB OLIC PANEL bilirubin, total 1.80 mg/dL 0.20-1 .30 high Not Available [facility] (Lab) [address] [place], [address], 03/14/2024 15:37:32 03/14/20 24 03/14/2024 COMPR EHENS DENISE METAB OLIC PANEL calcium 10.1 mg/dL 8.4-10 .2 Not Available [facility] (Lab) [address] [place], [address], 03/14/2024 15:37:32 03/14/20 24 03/14/2024 COMPR EHENS DENISE METAB OLIC PANEL total protein 7.9 g/dL 6.3-8. 2 Not Available [facility] (Lab) [address] [place], [address], 03/14/2024 15:37:32 03/14/20 24 03/14/2024 COMPR EHENS DENISE METAB OLIC PANEL albumin 4.3 g/dL 3.0-4. 4 Not Available [facility] (Lab) [address] [place], [address], 03/14/2024 15:37:32 03/14/20 24 03/14/2024 COMPR EHENS DENISE METAB OLIC PANEL globulin 3.6 g/dL 2.6-4. 2 Not Available [facility] (Lab) [address] [place], [address], 03/14/2024 15:37:32 03/14/20 24 03/14/2024 COMPR EHENS DENISE METAB OLIC PANEL A/G ratio 1.2 ratio 1.0-2. 0 Not Available [facility] (Lab) [address] [place], [address], 03/14/2024 15:37:32 03/14/20 24 03/14/2024 VITAM IN D 25-HY DROXY vd25oh 69.7 NG/mL 30-100 Vitam in D Statu s: Defic ient: <20 ng/mL Insuf ficie nt: 20-29 ng/mL Suffi cient : 30-10 0 ng/mL Not Available [facility] (Lab) [address] [place], [address], 03/14/2024 15:55:24 03/14/2003/14/2024 TSH W/REF EFRAIN FT4 TSH with reflex free T4 1.280 uIU/m L 0.465- 4.680 Not Available [facility] (Lab) [address] [place], [address], 03/14/2024 16:29:36 03/14/20 24 03/14/2024 VITAM IN B12 (ANDREA JAMAL ) vb12 702 pg/mL 239-93 1 Not Available [facility] (Lab) [address] [place], [address], 03/14/2024 16:45:07 03/14/20 24 03/14/2024 FOLAT E, SERUM /PLAS MA folate >20.0 NG/mL 2.76-2 0.0 Not Available [facility] (Lab) [address] [place], [address], 03/14/2024 16:45:08 03/14/20 24 03/14/2024 HEMOG LOBIN A1C HA1C 6.5 % 4.0-6. 0 high Diabe rachel Scree aubree Crite nicky: <5.7% Consi stent with absen ce of diabe rachel 5.7-6 .4% Consi stent with incre ased risk for diabe rachel (pred iabet es) >OR=6 .5% Consi stent with diabe rachel REFER ENCE: Diabe rachel Care 2016, 39([place] ppl.1 ):s13 -s22 Not Available [facility] (Lab) [address] [place], [address], 03/14/2024 21:21:31 12/12/19 24 12/12/2023 US, abdom en, limit ed [facility] [address] [address] Patien t Name: SHIRLEY JENKINS Access ion #: [id number] Sex: F : 1959 5 Dictat [...] at 2023 10:51: 01 AM Page 1 [email or web address] [facility] ([facility]) [address] [place], [address], 01/18/2024 16:04:34 Result Notes None recorded. Problems Name Problem SNOMED Code Status Onset Date Resolution Date Notes Provider Name and Address Organization Details Recorded Time Localized, primary osteoarthr itis of the shoulder region 575874272 Active Not Available [facility] 4 11:45:08 Herpes zoster 8227206 Active Not Available [facility] 4 11:45:08 Diabetes mellitus 09466655 Active Not Available [facility] 4 11:45:08 Neuropathy 783313851 Active 2016 Not Available [facility] 4 11:45:08 Closed fracture of lateral malleolus 12059798 Active 2018 Not Available [facility] 4 11:45:08 Closed fracture of base of fifth metatarsal bone 329644849 Active 2018 Not Available [facility] 4 11:45:08 Hypertensi ve disorder 35519880 Active 2019 Not Available [facility] 4 11:45:08 Hyperlipid emia 40034046 Active 2019 ALVARO [place], [place] 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 208133101 Active 2019 Not Available [facility] 4 11:45:08 Osteoarthr itis of right knee joint 2889456223531 00 Active 2021 Not Available [facility] 4 11:45:08 Moderate recurrent major depression 75106439 Active 2022 Not Available [facility] 4 11:45:08 Environmen juan allergy 149715950 Active 2022 Not Available [facility] 4 11:45:08 Vitamin D deficiency 04511576 Active 2022 Not Available [facility] 4 11:45:08 Morbid obesity 720302804 Active 2022 Not Available [facility] 4 11:45:08 Periodic limb movement disorder 017220878 Active 2023 Not Available [facility] 4 11:45:08 Hemochroma tosis 143180902 Active 2023 Jan Jeffries MD [address] [place], [address] , [facility] 4 14:13:04 Malignant tumor of breast 607226350 Active 2023 Callie elizabeth MD [address], [place], [address] , [facility] 4 18:14:46 Chronic kidney disease 704043448 Active 2023 Callie elizabeth MD [address], [place], [address] , [facility] 4 18:14:47 Liver enzymes level above reference range 967309922 Active 2023 Callie elizabeth MD [address], [place], [address] , [place] [facility] [place] [facility] 4 18:14:47 Serum vitamin B12 below reference range 044196659 Active 2023 Callie elizabeth MD [address], [place], [address] , [place] [facility] [place] [facility] 4 18:14:47 Hyperbilir ubinemia 18059468 Active 2023 Callie elizabeth MD [address], [place], [address] , [employer] [place] [facility] [employer] [facility] [employer] [facility] 4 12:58:09 Steatotic liver disease 692328312 Active 2023 Callie elizabeth MD [address], [place], [address] , [place] [facility] [place] [facility] [employer] 4 12:58:54 Essential hypertensi on 23538242 Active 2024 Callie elizabeth MD [address], [place], [address] , [employer] [place] [facility] [employer] [facility] 5 13:56:59 Type 2 diabetes mellitus without complicati on 164919247 Active 2024 Callie elizabeth MD [address], [place], [address] , [place] [facility] [place] [facility] 5 13:56:59 Heart murmur 34507547 Active 2024 Callie elizabeth MD [address], [place], [address] , [place] [facility] [place] [facility] 5 13:56:59 Pain of right shoulder joint 3731502358226 9100 Active 2024 Callie elizabeth MD [address], [place], [address] , [place] [facility] [place] [facility] 13:56:59 Hypercalce zoë 35199263 Active 2024 Callie elizabeth MD [address] [place] [address], [place], [address] , [facility] [employer] [facility] [facility] 13:56:59 Low back pain 210283142 Active 2024 Callie elizabeth MD [address], [place] [address], [place], [address] , [facility] [employer] [facility] [employer] [facility] 13:56:59 Erythrocyt osis 000384052 Active 2024 Callie elizabeth MD [address], [place] [address], [place], [address] , [facility] [employer] [facility] [employer] 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 Procedures Surgical History Date Name Laterality Status Provider Name and Address Organization Details Recorded Time 11/21/19 24 Advanced Care Planning completed Kiran Stephens LPN [facility] [employer] [facility] [employer] 11/21/2023 13:26:35 11/21/19 24 Medicare Wellness CPT Code, Initial completed Kiran Stephens LPN [employer] 11/16/2023 10:10:51 09/12/19 23 Medicare Wellness CPT Code, subsequent completed Laly Patel RN [facility] [facility] 09/11/2022 12:13:49 02/09/20 22 Eye Surgery completed Not Available [facility] 08/17/19 23 00:52:23 03/04/20 21 reverse prosthetic total arthroplasty of right shoulder completed Not Available [facility] 08/16/2022 00:52:23 02/12/20 21 total shoulder replacement completed Not Available [facility] 08/16/2022 00:52:23 02/12/20 21 prosthetic total arthroplasty of right shoulder completed Not Available [facility] 08/16/2022 00:52:23 08/23/19 19 Date of Last Pap Smear completed Not Available [facility] 08/16/2022 00:52:20 06/04/20 18 Most Recent Bone Density completed Not Available [facility] 08/16/2022 00:52:19 06/18/19 16 Back completed Not Available [facility] 00:52:23 excision of bilateral breasts completed Not Available [facility] 08/16/2022 00:52:23 Rotator cuff surgery completed Not Available [facility] 08/16/2022 00:52:23 repair of meniscus completed Not Available [facility] 08/16/2022 00:52:23 Gallbladder Surgery completed Not Available [facility] 08/16/2022 00:52:23 section completed Not Available [facility] 08/16/2022 00:52:23 Back Surgery completed Rochelle Matias MA [facility] [employer] 08/28/2023 14:10:49 Imaging Results None recorded. Procedure Notes None recorded. Medical Equipment None Reported. Allergies Allergen ID Allergen Name Allergen Category Reaction Reaction Severity Criticality Documentation Date Start Date Code Code System Note Provider Name and Address Organization Details Recorded Time 1672 Product containin g penicilli n (product) medicatio n hives Not available Not available 08/16/2022 63118 8001 SNOMED Not Available [facility] 3 01:09:56 1674 clindamyc in Not available chest pain Not available Not available 08/16/2022 2582 RxNorm stoma ch issue s Not Available [facility] 3 01:09:56 44367 morphine medicatio n Not available Not available Not available 09/13/2022 7052 RxNorm Nusrat Cee null, [place] [facility] [place] [employer] 3 12:11:02 Medications Name Sig Start Date [...] suspension for injection in office 07/23 completed [facility]: 0003- 0494- 20 Not Available Not Available [...] completed Not Available Not Available Not Available clotrimazol e-betametha sone 1 %-0.05 % topical cream APPLY TOPICALLY TO AFFECTED AREAS DAILY active Not Available Not Available No t Available glimepiride 4 mg tablet TAKE 1 [...] capsule TAKE ONE CAPSULE BY MOUTH ONE TIME A WEEK active Not Available Not Available [...] Not Available rosuvastati n 20 mg tablet take one tablet by mouth Sunday through Sunday active Not Available Not Available Not Avai lable metoprolol tartrate 25 mg tablet TAKE 1 TABLET BY [...] completed Not Available Not Available Not Available [employer]Touch Ultra2 Meter kit U UTD 08/17 completed [...] Dash Pods (Gen 4) subcutaneou s cartridge CHANGE EVERY 3 DAYS active Not Available Not Available No t Available OneTouch Delica Plus Lancet 33 gauge [...] Not Available Not Available Not Available Mounjaro 10 mg/0.5 mL subcutaneou s pen injector INJECT 10MG SUBCUTANE OUSLY ONCE WEEKLY active Not Available Not Available No t Available Dexcom G7 School Speech Therapist FOLLOW PACKAGE DIRECTION S 06/15 completed Not Available Not Available Not Available Dexcom G7 Sensor device CHANGE SENSOR EVERY 10 DAYS 06/15 completed Not Available Not Available Not Available Omnipod 5 G6-G7 Intro Kit(Gen 5) subcutaneou s cartridge and controller USE DIRECTED active Not Available Not Available No t Available Omnipod 5 G6-G7 Pods (Gen 5) subcutaneou s cartridge CHANGE PODS EVERY 3 DAYS active Not Available Not Available No t Available Vitals Date Recorded Oxygen saturation Oxygen saturation in Arterial blood by Pulse oximetry Heart rate Respiratory rate Provider Name and Address Organization Details Last Updated DateTime 07/15/2024 95 % 95 % 81 /min 15 /min Jan Jeffries MD [address] [place] [address], [place], [address], [facility] [employer] 5 10:53:33 Date Recorded Body height Body mass index (BMI) Body weight Body temperature Heart rate Systolic And Diastolic Provider Name and Address Organization Details Last Updated DateTime 5 157.48 cm 38.8 kg/m2 28136.5 8 g 98.1 [degF] 81 /min 110/66 mm[Hg] Berta Garzon MA [facility] [employer] 5 10:42:41 Date Recorded Body height Body mass index (BMI) Body weight Body temperature Heart rate Systolic And Diastolic Provider Name and Address Organization Details Last Updated DateTime 5 157.48 cm 38.8 kg/m2 26743.5 8 g 97.6 [degF] 78 /min 124/76 mm[Hg] ALVARO Webster [facility] [employer] 5 15:14:36 Date Recorded Body height Body mass index (BMI) Body weight Body temperature Heart rate Oxygen saturation Oxygen saturation in Arterial blood by Pulse oximetry Pain severity - 0-10 verbal numeric rating [Score] - Reported Systolic And Diastolic Provider Name and Address Organization Details Last Updated DateTime 4 157.48 cm 39.3 kg/m2 80334.3 6 g 97.1 [degF] 90 /min 96 % 96 % 3 110/66 mm[Hg] Rochelle Matias MA [facility] [employer] 4 12:25:22 Date Recorded Body height Body mass index (BMI) Body weight Body temperature Heart rate Systolic And Diastolic Provider Name and Address Organization Details Last Updated DateTime 4 157.48 cm 38.6 kg/m2 24601.9 9 g 97.2 [degF] 72 /min 110/60 mm[Hg] ALVARO Webster [facility] [employer] [facility] 4 11:23:54 Date Recorded Body height Body mass index (BMI) Body weight Body temperature Heart rate Oxygen saturation Oxygen saturation in Arterial blood by Pulse oximetry Systolic And Diastolic Provider Name and Address Organization Details Last Updated DateTime 4 157.48 cm 38.8 kg/m2 37810.5 8 g 98.2 [degF] 81 /min 98 % 98 % 110/62 mm[Hg] Berta Garzon MA [employer] 14:39:59 Social History Question Answer Notes LastModified by Organization Details LastModified Time Tobacco Smoking Status Never Smoker Randa Bob honorio, [place] [employer] 05/03/2023 11:24:02 Do You Have An Advance Directive? No Information Provided [email or web address] Information not available 11/21/2023 Do You Wear A Helmet When Biking? No DOES NOT BIKE [email or web address] Information not available 11/21/2023 Are You Blind Or Do You Have Difficulty Seeing? No Information not available 11/21/2023 What Is Your Level Of Caffeine Consumption? Occasional Chocolate Occasionally [email or web address] Information not available 09/13/2022 How Much Tobacco Do You Chew? None [email or web address] [id number] Information not available 08/16/2022 In The 14 Days Before Symptom Onset, Have You Had Close Contact With A Laboratory-conf irmed COVID-19 While That Case Was Ill? No [email or web address] Information not available 05/03/2023 In The 14 Days Before Symptom Onset, Have You Had Close Contact With A Person Who Is Under Investigation For COVID-19 While That Person Was Ill? No [email or web address] Information not available 05/03/2023 Are You Deaf Or Do You Have Serious Difficulty Hearing? No [email or web address] Information not available 11/21/2023 What Type Of Diet Are You Following? REGULAR [email or web address] Information not available 11/21/2023 Which Illicit Or Recreational Drugs Have You Used? None [email or web address] Information not available 05/03/2023 What Is The Highest Grade Or Level Of School You Have Completed Or The Highest Degree You Have Received? [id number] [email or web address] Information not available 05/03/2023 Do You Have An Electrostatic Air Filter? Yes Information not available 05/03/2023 How Many Days Of Moderate To Strenuous Exercise, Like A Brisk Walk, Did You Do In The Last 7 Days? 0 [email or web address] Information not available 11/21/2023 Have There Been Any Changes To Your Family Or Social Situation? No [email or web address] Information not available 05/03/2023 What Is The Fluoride Status Of Your Home? Fluoridated Information not available 05/03/2023 Are There Any Guns Present In Your Home? Yes Locked Up Information not available 05/03/2023 Do You Have A Humidifier? No [email or web address] Information not available 05/03/2023 Do You Use Insect Repellent Routinely? Yes [email or web address] Information not available 11/21/2023 Where Do You Live? [facility] [email or web address] Information not available 05/03/2023 Presence Of Domestic Violence No [email or web address] Information not available 11/21/2023 Guns Present In The Home? Yes Locked Up Information not available 09/11/2022 Are You Able To Care For Yourself? Yes [email or web address] Information not available 09/11/2022 Are You Blind Or Do Yo Have Difficulty Seeing? No [email or web address] Information not available 09/11/2022 Are You Deaf Or Do You Have Serious Difficulty Hearing? No [email or web address] Information not available 09/11/2022 General Stress Level? Low [email or web address] Information not available 11/21/2023 Live Alone Of With Others? With Others [email or web address] Information not available 09/11/2022 Do You Have A Medical Power Of Auditing Coder? No [email or web address] Information not available 05/03/2023 Do You Have Moisture Problems In Your Home? No [email or web address] Information not available 05/03/2023 What Was The Date Of Your Most Recent Tobacco Screening? 08/06/2024 [email or web address] Information not available 08/06/2024 How Many Children Do You Have? 2 Information not available 11/21/2023 Have You Ever Been Counseled For Unhealthy Alcohol Use? No [email or web address] Information not available 05/03/2023 Do You Have Any Pets? Yes 2 Dogs [email or web address] Information not available 11/21/2023 What Is Your Relationship Status? [id number] Information not available 08/16/2022 Do You Use Your Seat Belt Or Car Seat Routinely? Yes [email or web address] Information not available 05/03/2023 Do You Have Smoke And Carbon Monoxide Detectors In Your Home? Yes [email or web address] Information not available 05/03/2023 Are You Passively Exposed To Smoke? No Information not available 11/21/2023 Are There Any Smokers In Your House? No [email or web address] Information not available 05/03/2023 What Types Of Sporting Activities Do You Participate In? None [email or web address] Information not available 11/21/2023 Do You Use Sunscreen Routinely? Yes [email or web address] Information not available 05/03/2023 Has Tobacco Cessation Counseling Been Provided? No N/A [email or web address] Information not available 05/03/2023 Have You Recently Traveled Abroad? No [email or web address] Information not available 05/03/2023 Do You Have Difficulty Walking Or Climbing Stairs? Yes Has Spinal Cord Stimulator [email or web address] Information not available 11/21/2023 Do You Have Any Dietary Restrictions? No Sugar [email or web address] Information not available 11/21/2023 Sex: Female Functional Status Question Answer Note LastModified by [employer] ion Details LastModified Time Do you or have you ever used smokeless tobacco? Never used smokeless tobacco [id number] Information not available 08/16/2022 Are you currently employed? No Information not available 08/08/2023 Have you been exposed to chemicals or toxins? not that aware of Information not available 08/28/2023 Do you have transportation difficulties? No [email or web address] Information not available 11/21/2023 Are you able to care for yourself independently? Yes [email or web address] Information not available 11/21/2023 Do you have difficulty dressing, bathing, grooming, or toileting? No [email or web address] Information not available 11/21/2023 Do you or have you ever used e-cigarettes or vape? Never used electronic cigarettes Information not available 05/03/2023 What is your exercise level? None has alot of back pain [email or web address] Information not available 09/11/2022 Do you use any illicit or recreational drugs? No [email or web address] Information not available 05/03/2023 Do you or have you ever used any other forms of tobacco or nicotine? No Information not available 05/03/2023 What is your level of alcohol consumption? None [email or web address] Information not available 09/11/2022 Are you able to walk? YESWOREST [email or web address] Information not available 11/21/2023 Do you have difficulty doing errands alone? 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 [id number] [email or web address] Information not available 05/03/2023 Do you have difficulty concentrating, remembering or making decisions? No [email or web address] Information no t available 11/21/2023 Family History Relationship Description Onset Age of this Age Resolved Age Notes LastModified by Organization Details LastModified Time Father Heart disease [email or web address] Not available 2023 11:14:52 Father Obstructive sleep apnea syndrome [email or web address] Not available 06/19 10:12:23 Father Chronic obstructive pulmonary disease [email or web address] Not available 06/19 10:12:23 Father Hypertensive disorder [id number] Not available 08/16/2022 00:52:25 Father Diabetes mellitus [id number] Not available 08/16/2022 00:52:25 Mother Hypertensive disorder [id number] Not available 08/16/2022 00:52:25 Sister Obstructive sleep apnea syndrome [email or web address] Not available 06/19 10:12:23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 see GI hepatology yetGet labsUS liver: 12/12/2023 : Hepatic steatosis and hepatomega ly Environmental allergy 42 1937522 T78.49XA On zyrtec Does well on this Moderate r ecurrent major depression 74432346 F33.1 Does well on the venlafaxin e now Not suicidal or homicidal Declines any psychiatry referrals Vitamin D deficiency 347 45121 E55.9 Serum channing min B12 below reference range 299488869 R79.89 Health Concerns Section Related Observation LastModified by Organization Detai ls LastModified Time None Recorded Concern Status LastModified by Organization Details LastModified Time None Recorded Advance Directives Directive N: Information provided Payers Insurance Date Sequence Insurance Name Policy Number Policy Palma Covered Member ID Palma Member ID Guarantor Name 10/27/2024 1 [facility] (MEDICARE REPLACEMENT/A DVANTAGE - HMO) [id number] Neha Jenkins [id number] Neha Jenkins OBGyn Episode No OBEpisode recorded.
[2025-01-13 13:11] LABS: Hematocrit 43.5 % (37.0-47.0); Hemoglobin 14.4 g/dL (12.0-15.0); Immature Granulocyte Percent A 0.2 % (0-0.5); Lymphocytes Absolute Auto 2.50 K/mm3 (0.9-3.2); Mean Corpuscular HGB Conc 33.1 g/dl (32-36); Mean Corpuscular Hemoglobin 27.9 pg (26-34); Mean Corpuscular Volume 84.3 fl (80-100); Nucleated Red Blood Cells Absolute Auto 0.000 K/mm3 (0.0-0.012); Nucleated Red Blood Cells Perc 0.0 % (0.0-0.2); Platelet Count Result 182 k/mm3 (150-375); Red Blood Count 5.16 M/mm3 (4.2-5.4); White Blood Count 8.8 K/mm3 (4.5-10.0)
[2025-01-13 16:53] LABS: Iron 62 ug/dL (37-170)
[2025-01-13 17:06] LABS: Percent Iron Saturation 22 % (20-50)
[2025-01-13 17:35] LABS: Ferritin 155.00 ng/mL (11.1-264)
== END 2025-01-13 12:50 | disposition home or self-care (01) ==
LOC: ANHLAB 12:49
PROVIDERS: PCP Internal Medicine; Visit Provider Internal Medicine Hematology & Oncology
DX: E83.110 Hereditary hemochromatosis (principal)
CPT/HCPCS: 36415; 82728; 83540; 83550; 85025